=== PATIENT | male | born 1990 | race Caucasian/White ===

== ENCOUNTER 2021-05-09 07:13 | Inpatient (IN) ==
--- NOTE | 2021-05-09 07:34 | Emergency Department Note ---
History of Present Illness General Chief complaint: Foreign Body Stated complaint: SWALLOWED 2 BATTERIES AND A SPORK Time Seen by Provider: 05/09/21 07:22 History of Present Illness This 30-year-old male patient with significant past medical history of partial gastrectomy presents to the emergency department today for evaluation of ingested foreign body. The patient states at 1130 last night, he swallowed 2 A AA batteries and a spark. He states he does take daily laxatives and noted some discomfort in his mid abdomen last evening and overnight, but this is resolved. Last bowel movement was at 8 PM last night. He denies any chest pain or dyspnea. No current abdominal pain. No fever or recent illness. He denies any other associated symptoms. Home Medications Medication Instructions Recorded Confirmed Type mirtazapine 15 mg tablet 15 mg PO HS 05/09/21 05/09/21 History polyethylene glycol 3350 17 17 g PO DAILY 05/09/21 05/09/21 History gram/dose oral powder (Miralax) Allergies Allergy/AdvReac Type Severity Reaction Status Date / Time sertraline [From Zoloft] Allergy Unknown Per record Unverified 05/09/21 07:58 from SCI Past Med/Surg History Medical History Borderline personality disorder No pertinent family history Surgical History (Updated 05/09/21 @ 09:47 by Marie Dickson PA-C) History of partial gastrectomy Social History Smoking Status: Former smoker Feels Safe at Home: Yes Review of Systems A total of 10 systems reviewed and were otherwise negative Physical Exam Vital Signs Vital Signs - 24 hr 05/09/21 07:16 05/09/21 09:15 05/09/21 10:20 Temperature 36.9 C 36.6 C Temperature Source Temporal Artery Scan Oral Pulse Rate 115 H Pulse Rate [Apical] Pulse Rate [Finger] 98 H 66 Pulse Rhythm [Apical] Pulse Rhythm [Finger] Regular Regular Pulse Strength [Apical] Pulse Strength [Finger] Normal Respiratory Rate 20 18 18 Respiratory Effort / Characteristics Non-Labored Spontaneous Non-Labored Spontaneous Non-Labored Spontaneous Respiratory Depth Normal Normal Normal Respiratory Pattern Regular Regular Regular Blood Pressure 139/89 Blood Pressure [Right Arm] 130/78 115/77 Blood Pressure Mean 105 Blood Pressure Mean [Right Arm] 95 89 Blood Pressure Position Sitting Blood Pressure Position [Right Arm] Sitting Sitting Pulse Oximetry 94 97 100 Oxygen Delivery Method Room Air Room Air Room Air Oxygen Flow Rate Sepsis Recent Fever Within 48 Hours No Sepsis New/Unexplained Change in Mental Status N/A Sepsis Action Taken by Nursing No Action Required 05/09/21 12:11 05/09/21 12:20 05/09/21 12:30 Temperature 37.1 C Temperature Source Temporal Artery Scan Pulse Rate Pulse Rate [Apical] 71 68 60 Pulse Rate [Finger] Pulse Rhythm [Apical] Regular Regular Regular Pulse Rhythm [Finger] Pulse Strength [Apical] Normal Normal Normal Pulse Strength [Finger] Respiratory Rate 16 15 12 Respiratory Effort / Characteristics Non-Labored Spontaneous Non-Labored Spontaneous Non-Labored Spontaneous Respiratory Depth Normal Normal Normal Respiratory Pattern Regular Regular Regular Blood Pressure Blood Pressure [Right Arm] 100/50 L 94/55 L 109/69 Blood Pressure Mean Blood Pressure Mean [Right Arm] 66 68 82 Blood Pressure Position Blood Pressure Position [Right Arm] Lying Lying Lying Pulse Oximetry 99 99 100 Oxygen Delivery Method Oxymask Oxymask Room Air Oxygen Flow Rate 6 2 Sepsis Recent Fever Within 48 Hours Sepsis New/Unexplained Change in Mental Status Sepsis Action Taken by Nursing 05/09/21 12:40 Temperature Temperature Source Pulse Rate Pulse Rate [Apical] 55 L Pulse Rate [Finger] Pulse Rhythm [Apical] Regular Pulse Rhythm [Finger] Pulse Strength [Apical] Normal Pulse Strength [Finger] Respiratory Rate 15 Respiratory Effort / Characteristics Non-Labored Spontaneous Respiratory Depth Normal Respiratory Pattern Regular Blood Pressure Blood Pressure [Right Arm] 107/71 Blood Pressure Mean Blood Pressure Mean [Right Arm] 83 Blood Pressure Position Blood Pressure Position [Right Arm] Lying Pulse Oximetry 99 Oxygen Delivery Method Room Air Oxygen Flow Rate Sepsis Recent Fever Within 48 Hours Sepsis New/Unexplained Change in Mental Status Sepsis Action Taken by Nursing VITALS: Vitals are noted on the nurse's note and reviewed by myself. Vital signs stable. GENERAL: This is a 30-year-old white male, in no acute distress, nondiaphoretic, well-developed well-nourished. SKIN: The skin was without rashes, erythema, edema, or bruising. There is no tenting of the skin. Capillary refill less than 2 seconds. HEAD: Normocephalic atraumatic. EYES: Conjunctivae without injection, sclerae without icterus. NECK: Supple without nuchal rigidity. No lymphadenopathy. No JVD. HEART: Regular rate and rhythm without murmurs gallops or rubs. LUNGS: Clear to auscultation bilaterally without wheezes, rales or rhonchi. No retractions or accessory muscle use. ABDOMEN: Positive bowel sounds x 4. Soft, nontender, without masses or organomegaly. Vega sign negative. No guarding or rebound tenderness. MUSCULOSKELETAL: No muscle atrophy, erythema, or edema noted. Full range of motion without joint tenderness in all extremities. No tenderness to palpation. Normal gait. Strength 5/5 throughout. NEURO: Patient was alert and oriented to person place and time. No focal neurological deficits. Course Course The patient was seen and evaluated as above. An order was placed for continuous cardiac monitoring. The monitor shows a sinus tachycardia at a rate of 115 bpm. Imaging performed and reviewed by myself and radiologist as noted. I discussed the case with ANNA Gutierrez with GI. She will consult with her attending physician. IV access obtained, labs drawn. Labs reviewed by myself. Pt. was seen by GI. He will have EGD completed. Please see GI dictation regarding ongoing management and care of this patient. Medical Decision Making Differential Diagnosis Ingested foreign body, aspiration, infection, esophageal tear, obstruction, among others Medical Records Attestation: I reviewed the patient's medical records. Home Medications Current Medication List: was personally reviewed by me Laboratory Data Attestation: I reviewed the patient's lab results. Result diagrams: 05/09/21 09:05/09/21 09:21 Lab Results 05/09/21 05/09/21 05/09/21 Range/Units 09:11 09:11 09:21 WBC 3.46 L (4.8-10.8) K/uL RBC 4.47 L (4.7-6.1) M/uL Hgb 13.6 L (14.0-18.0) g/dL Hct 39.5 L (42-52) % MCV 88.4 (80-100) fL MCH 30.4 (25-34) pg MCHC 34.4 (32-36) g/dL RDW Std Deviation 42.4 (36.4-46.3) fL RDW Coeff of Antonio 13.1 (11.5-14.5) % Plt Count 201 (130-400) K/uL MPV 10.7 H (7.4-10.4) fL Immature Gran % (Auto) 0.0 % Neut % (Auto) 48.0 % Lymph % (Auto) 40.2 % [place] % (Auto) 7.5 % Eos % (Auto) 4.3 % Baso % (Auto) 0.0 % Neut # (Auto) 1.66 (1.4-6.5) K/uL Lymph # (Auto) 1.39 (1.2-3.4) K/uL [place] # (Auto) 0.26 (0.11-0.59) K/uL Eos # (Auto) 0.15 (0-0.5) K/uL Baso # (Auto) 0.00 (0-0.2) K/uL Immature Gran # (Auto) 0.00 (0.00-0.02) K/uL Sodium (136-145) mmol/L Potassium (3.5-5.1) mmol/L Chloride (98-107) mmol/L Carbon Dioxide (21-32) mmol/L Anion Gap (3-11) BUN (7-18) mg/dl Creatinine (0.6-1.4) mg/dl Est Cr Clr Drug Dosing ml/min Est GFR ( Amer) ml/min Est GFR (Non-Af Amer) ml/min BUN/Creatinine Ratio (10-20) Glucose (70-99) mg/dl Calcium (8.5-10.1) mg/dl Total Bilirubin (0.2-1) mg/dl AST (15-37) U/L ALT (12-78) U/L Alkaline Phosphatase (45-117) U/L Total Protein (6.4-8.2) gm/dl Albumin (3.4-5.0) gm/dl Globulin (2.5-4.0) gm/dl Albumin/Globulin Ratio (0.9-2) COVID-19 Eval Order Covid19 at [facility] SARS-CoV-2 (PCR) NEGATIVE (Negative) 05/09/21 Range/Units 09:21 WBC (4.8-10.8) K/uL RBC (4.7-6.1) M/uL Hgb (14.0-18.0) g/dL Hct (42-52) % MCV (80-100) fL MCH (25-34) pg MCHC (32-36) g/dL RDW Std Deviation (36.4-46.3) fL RDW Coeff of Antonio (11.5-14.5) % Plt Count (130-400) K/uL MPV (7.4-10.4) fL Immature Gran % (Auto) % Neut % (Auto) % Lymph % (Auto) % [place] % (Auto) % Eos % (Auto) % Baso % (Auto) % Neut # (Auto) (1.4-6.5) K/uL Lymph # (Auto) (1.2-3.4) K/uL [place] # (Auto) (0.11-0.59) K/uL Eos # (Auto) (0-0.5) K/uL Baso # (Auto) (0-0.2) K/uL Immature Gran # (Auto) (0.00-0.02) K/uL Sodium 138 (136-145) mmol/L Potassium 3.6 (3.5-5.1) mmol/L Chloride 106 (98-107) mmol/L Carbon Dioxide 29 (21-32) mmol/L Anion Gap 3.0 (3-11) BUN 6 L (7-18) mg/dl Creatinine 0.60 (0.6-1.4) mg/dl Est Cr Clr Drug Dosing 205.3 ml/min Est GFR ( Amer) > 150.0 ml/min Est GFR (Non-Af Amer) 135.9 ml/min BUN/Creatinine Ratio 9.4 L (10-20) Glucose 84 (70-99) mg/dl Calcium 8.8 (8.5-10.1) mg/dl Total Bilirubin 0.6 (0.2-1) mg/dl AST 27 (15-37) U/L ALT 27 (12-78) U/L Alkaline Phosphatase 126 H (45-117) U/L Total Protein 7.2 (6.4-8.2) gm/dl Albumin 4.3 (3.4-5.0) gm/dl Globulin 2.9 (2.5-4.0) gm/dl Albumin/Globulin Ratio 1.5 (0.9-2) COVID-19 Eval Order SARS-CoV-2 (PCR) (Negative) Imaging Data Radiologist's Impression: KUB X-Ray 05/09/21 07:29 KUB HISTORY: Foreign body ingestion "swallowed 2 AAA batteries and spork" - 11:30pm COMPARISON: KUB 09/04/2014 FINDINGS: Nonobstructive bowel gas pattern. Surgical clips project over the abdominal right lower quadrant and left upper quadrant.a there are 3 round radiopaque buttonlike devices projecting over the right lateral lower abdomen and right hemipelvis which may be external to the patient. There are 2 cylindrical batteries projected over the abdominal left upper quadrant measuring up to approximately 4 cm. Moderate fecal retention. There is a 4.2 cm ill- defined curvilinear radiodensity medial to the more proximal battery. No renal calculi. No ureteral calculi. No pneumoperitoneum or pneumatosis. No fracture. IMPRESSION: 1. Two batteries project over the stomach. There is an additional 4.2 cm ill- defined radiodensity medial to the batteries which may be artifactual or represent an additional ingested foreign body. ACT 112: Negative or not required by law. The above report was generated using voice recognition software. It may contain grammatical, syntax or spelling errors. Electronically signed by: Britton Will M.D. 05/09/2021 8:16 AM Blood Pressure Blood Pressure Findings: Normal blood pressure MDM Narrative This 30-year-old male patient presents to the emergency department today for evaluation of foreign body ingestion. The patient states he swallowed 2 AAA batteries and a sport last evening. He denies any pain at this time. KUB does confirm foreign body in the stomach. I did consult with GI and they will take the patient to the OR for EGD and foreign body removal. Please see GI dictation regarding ongoing management and care of this patient. The chart was completed utilizing [employer] voice recognition software. Grammatical errors, random word insertions, pronoun errors, and incomplete sentences are an occasional consequence of this system due to software limitations, ambient noise, and hardware issues. Any formal questions or concerns about the content, text, or information contained within the body of this dictation should be directly addressed to the provider for clarification. Impression & Plan Swallowed foreign body, History of partial gastrectomy Discharge Plan Visit Data Chief Complaint: Foreign Body Stated Complaint: SWALLOWED 2 BATTERIES AND A SPORK ED Provider: Harvey Minor ED Midlevel Provider: Marie Dickson Discharge Problem: Swallowed foreign body, History of partial gastrectomy Patient Disposition: Being Evaluated by Surgeon Discharge Instructions Interventions: ED Discharge Assessment Last Done: 05/09/21 10:16 Discharge Problem: Swallowed foreign body Qualifiers: Encounter type: initial encounter Qualified Code(s): T18.9XXA - Foreign body of alimentary tract, part unspecified, initial encounter
--- NOTE | 2021-05-09 08:17 | XRay Report ---
KUB HISTORY: Foreign body ingestion "swallowed 2 AAA batteries and spork" - 11:30pm COMPARISON: KUB 09/04/2014 FINDINGS: Nonobstructive bowel gas pattern. Surgical clips project over the abdominal right lower loc drant and left upper quadrant.a there are 3 round radiopaque buttonlike devices projecting over the r ight lateral lower abdomen and right hemipelvis which may be external to the patient. There are 2 cyl indrical batteries projected over the abdominal left upper quadrant measuring up to approximately 4 c m. Moderate fecal retention. There is a 4.2 cm ill-defined curvilinear radiodensity medial to the mor e proximal battery. No renal calculi. No ureteral calculi. No pneumoperitoneum or pneumatosis. No fra cture. IMPRESSION: 1. Two batteries project over the stomach. There is an additional 4.2 cm ill-defined radiodensity med ial to the batteries which may be artifactual or represent an additional ingested foreign body. ACT 112: Negative or not required by law. The above report was generated using voice recognition software. It may contain grammatical, syntax o r spelling errors. Electronically signed by: Britton Will M.D. 05/09/2021 8:16 AM
--- NOTE | 2021-05-09 09:06 | Anesthesiology Consultation ---
Date of Service May 09, 2021 Assessment & Plan (1) Encounter for pre-operative examination: Chart Review Chart Review: Acceptable Risk for Surgery (awaiting covid test result) History Surgery Operation Date: 05/09/21 15:35 Proposed Procedures p Esophagogastroduodenoscopy Foreign Body Removal - Elena Garcia MD Height/Weight Height: 6 ft 1 in Weight: 84.7 kg Allergies Allergy/AdvReac Type Severity Reaction Status Date / Time sertraline [From Zoloft] Allergy Unknown Per record Unverified 05/09/21 07:58 from SCI Medications Home Medications Medication Instructions Recorded Confirmed Last Taken mirtazapine 15 mg tablet 15 mg PO HS 05/09/21 05/09/21 05/08/21 polyethylene glycol 3350 17 17 g PO DAILY 05/09/21 05/09/21 05/08/21 gram/dose oral powder (Miralax) Past Medical History Medical History (Updated 05/09/21 @ 09:07 by Jonathan Reis MD) Borderline personality disorder No pertinent family history Past Surgical History Surgical History (Updated 05/09/21 @ 09:06 by Jonathan Reis MD) History of partial gastrectomy Social History Smoking Status: Former smoker Physical Exam Vital Signs Last Vital Signs Temp 36.9 C 05/09/21 07:16 Pulse 115 H 05/09/21 07:16 Resp 20 05/09/21 07:16 BP 139/89 05/09/21 07:16 Pulse Ox 94 05/09/21 07:16
--- NOTE | 2021-05-09 09:21 | Gastrointestinal Consultation ---
Date of Consultation May 09, 2021 Assessment & Plan (1) Swallowed foreign body: 30 year old who reports foreign body ingestion last evening around midnight (2 batteries and spork), imaging confirms this is in his stomach Keep NPO COVID swab now EGD in OR for foreign body Thank you for allowing us to participate in the care of this patient. Please call with any acute changes, questions or concerns. Please see addendum below with additional recommendation from my supervising physician. Supervising Physician Co-Signing Physician Notes I performed a history and physical examination of the patient today, including specifically on physical exam - soft abdomen. I have discussed the patient's management with the advanced practitioner. Please refer to the nurse practitioner's note for the documented findings and plan of care. Urgent EGD for foreign body removal History of Present Illness Reason for Consultation: foreign body Requesting Physician: Randolph Attending Physician: Radha History of Present Illness 30 year old male patient with significant past medical history of partial gastrectomy presents to the emergency department today for evaluation of ingested foreign body. He notes around last evening near midnight he swallowed two AAA batteries. After, he swallowed a plastic spork "to make sure it got stuck in there". He notes he is presently feeling well. No abd pain. No nausea, vomiting. Denies any lower GI concerns. No diarrhea/constipation. No black or bloody stools. KUB 2020: Two batteries project over the stomach. There is an additional 4.2 cm ill-defined radiodensity medial to the batteries which may be artifactual or represent an additional ingested foreign body. Allergies Allergy/AdvReac Type Severity Reaction Status Date / Time sertraline [From Zoloft] Allergy Unknown Per record Unverified 05/09/21 07:58 from SCI Home Medications Medication Instructions Recorded Confirmed Type mirtazapine 15 mg tablet 15 mg PO HS 05/09/21 05/09/21 History polyethylene glycol 3350 17 17 g PO DAILY 05/09/21 05/09/21 History gram/dose oral powder (Miralax) Patient History Medical History (Updated 05/09/21 @ 09:47 by Marie Dickson PA-C) Borderline personality disorder No pertinent family history Surgical History (Updated 05/09/21 @ 09:47 by Marie Dickson PA-C) History of partial gastrectomy Social History Smoking Status: Former smoker Feels Safe at Home: Yes Review of Systems Review of Systems: All systems reviewed & are unremarkable except as noted in HPI & below Physical Exam Constitutional: WD/WN, vitals as above Neck: trachea midline, no thyromegaly Respiratory: normal respiratory effort and able to speak in complete sentences; no respiratory distress, no labored breathing, no cough, no audible wheezes, no grunting and no nasal flaring Cardiovascular: Rate/Rhythm: regular rhythm and + tachycardic Gastrointestinal (Abdomen): Percussion/Palpation: abdomen soft; abdomen not rigid Skin: no rashes, warm and dry Results & Data ([facility]) Vital Signs (Past 12 Hours) Vital Signs Temp Pulse Resp BP Pulse Ox 05/09/21 07:16 36.9 C 115 H 20 139/89 94 Laboratory Results 05/09/21 05/09/21 Range/Units 09:11 09:11 COVID-19 Eval Order Covid19 at [facility] SARS-CoV-2 (PCR) Pending
[2021-05-09 09:41] LABS: Eosinophils # (auto) 0.15 K/uL (0-0.5); Eosinophils % (auto) 4.3 %; Hematocrit (blood only) 39.5 % (42-52); Hemoglobin 13.6 g/dL (14.0-18.0); Lymphocytes # (auto) 1.39 K/uL (1.2-3.4); Lymphocytes % (auto) 40.2 %; Mean Corpuscular Hemoglobin 30.4 pg (25-34); Mean Corpuscular Hgb Conc 34.4 g/dL (32-36); Mean Corpuscular Volume 88.4 fL (80-100); Mean Platelet Volume 10.7 fL (7.4-10.4); Monocytes # (auto) 0.26 K/uL (0.11-0.59); Monocytes % (auto) 7.5 %; Neutrophils # (auto) 1.66 K/uL (1.4-6.5); Platelet Count 201 K/uL (130-400); RDW Coefficient of Variation 13.1 % (11.5-14.5); RDW Standard Deviation 42.4 fL (36.4-46.3); Red Blood Count 4.47 M/uL (4.7-6.1); White Blood Count 3.46 K/uL (4.8-10.8)
[2021-05-09 10:06] LABS: Alanine Aminotransferase 27 U/L (12-78); Albumin Level 4.3 gm/dl (3.4-5.0); Aspartate Aminotransferase 27 U/L (15-37); BUN Creatinine Ratio 9.4 (10-20); Blood Urea Nitrogen 6 mg/dl (7-18); Calcium 8.8 mg/dl (8.5-10.1); Carbon Dioxide 29 mmol/L (21-32); Chloride 106 mmol/L (98-107); Creatinine Clr Calc Pharmacy 205.3 ml/min; Est GFR (African American) > 150.0 ml/min; Est GFR (Non-African American) 135.9 ml/min; Glucose 84 mg/dl (70-99); Potassium 3.6 mmol/L (3.5-5.1); Sodium 138 mmol/L (136-145)
[2021-05-09 10:08] LABS: Albumin Globulin Ratio 1.5 (0.9-2); Alkaline Phosphatase 126 U/L (45-117); Bilirubin,Total 0.6 mg/dl (0.2-1); Globulin 2.9 gm/dl (2.5-4.0); Total Protein 7.2 gm/dl (6.4-8.2)
[2021-05-09] MEDS ORDERED: ONDANSETRON INJ 2 MG/ML 2 ML VIAL ONE (10:52)
[2021-05-09] MEDS ORDERED: LIDOCAINE 2% 2 ML VIAL/AMP(20MG/ML) INFIL ONE (10:52)
[2021-05-09] MEDS ORDERED: GLYCOPYRROLATE 0.2 MG/ML VIAL ONE (10:52)
[2021-05-09] MEDS ORDERED: PROPOFOL IV EMULSION 10 MG/ML 20 ML VIAL IV ONE ×2 (10:52→11:49)
[2021-05-09] MEDS ORDERED: SUCCINYLCHOLINE CHLORIDE 20 MG/ML 10 ML VIAL IV ONE (10:52)
[2021-05-09] MEDS ORDERED: ATROPINE SULFATE 0.1 MG/ML 10ML SYR IV PRN (11:22)
[2021-05-09] MEDS ORDERED: KETOROLAC 30 MG/ML VIAL IV PRN (11:22)
[2021-05-09] MEDS ORDERED: ONDANSETRON INJ 2 MG/ML 2 ML VIAL IV PRN (11:22)
[2021-05-09] MEDS ORDERED: METOCLOPRAMIDE HCL INJ 5 MG/ML 2 ML VIAL ONE (12:01)
--- NOTE | 2021-05-09 12:04 | Operative Report ---
Post Operative Report Pre & Post Diagnosis Operation Date: 05/09/21 15:35 Pre-Op Diagnosis: Swallowed Two Batteries and a Spork Post-Op Diagnosis: Swallowed Two Batteries and a Spork I identified the patient and participated in the time-out.: Yes Procedure Operation Date: 05/09/21 15:35 Actual Procedures p Esophagogastroduodenoscopy Foreign Body Removal(Not Applicable) - Elena Garcia MD Surgeon Elena Garcia MD Log Haul Operator None Estimated Blood Loss 0 Findings See Below (Plastic fork and one AAA Battery removed) Specimens Above Description of Procedure EGD I attest to the content of the Intraoperative Record and any orders documented therein. Any exceptions are noted below.
--- NOTE | 2021-05-09 12:15 | Gastroenterology Progress Note ---
Date of Service May 09, 2021 Subjective EGD done today, one Battery and one plastic fork removed. The second battery was not seen despite doing a push enteroscopy to the jejunum. Likely migrated down to the ileum. Please admit the patient for serial KUB till battery is out with a BM. Results & Data ([facility]) Vital Signs (Past 12 Hours) Vital Signs Temp Pulse Pulse Resp BP BP Pulse Ox 05/09/21 10:20 36.6 C 66 18 115/77 100 05/09/21 09:15 98 H 18 130/78 97 05/09/21 07:16 36.9 C 115 H 20 139/89 94
[2021-05-09] MEDS ORDERED: GLUCAGON FOR INJ 1 MG VIAL ONE (12:23)
--- NOTE | 2021-05-09 12:26 | GI REPORT ---
Patient Name: Feliciano Duarte Procedure Date: 05/09/2021 11:43 AM Date of : 1990 Admit Type: Outpatient Age: 30 Gender: Male Attending MD: Elena Garcia MD Procedure: Small bowel enteroscopy Providers: Elena Garcia MD Referring MD: Harvey Minor Indications: Foreign body in the stomach Medicines: General Anesthesia Complications: No immediate complications. Estimated Blood Loss: Estimated blood loss: none. Procedure: Pre-Anesthesia Assessment: - Prior to the procedure, a History and Physical was performed, and patient medications, allergies and sensitivities were reviewed. The patient's tolerance of previous anesthesia was reviewed. - The risks and benefits of the procedure and the sedation options and risks were discussed with the patient. All questions were answered and informed consent was obtained. - Patient identification and proposed procedure were verified prior to the procedure by the physician and the nurse. The procedure was verified in the procedure room. - Pre-procedure physical examination revealed no contraindications to sedation. After obtaining informed consent, the endoscope was passed under direct vision. Throughout the procedure, the patient's blood pressure, pulse, and oxygen saturations were monitored continuously. The Endoscope was introduced through the mouth, and advanced to the proximal jejunum. After obtaining informed consent, the endoscope was passed under direct vision. Throughout the procedure, the patient's blood pressure, pulse, and oxygen saturations were monitored continuously.The upper GI endoscopy was accomplished without difficulty. The patient tolerated the procedure well. Findings: The esophagus was normal. A plastic fork was found in the gastric body. Removal of a toy was accomplished with a snare. A AAA battery body was found in the third portion of the duodenum. Removal of a battery was accomplished with a snare. There was no evidence of significant pathology in the proximal jejunum. Impression: - Normal esophagus. - A plastic fork was found in the stomach. Removal was successful. - A AAA Battery found in the duodenum. Removal was successful. - The examined portion of the jejunum was normal. - The second battery was not found. Recommendation: - Admit the patient to hospital [facility] for ongoing care. - Serial KUB till the battery comes out with a bowel movement. - Miralax BID. Elena Garcia MD 05/09/2021 12:25:36 PM This report has been signed electronically. Note Initiated On: 05/09/2021 11:43 AM Number of Addenda: 0 I attest to the content of the Intraoperative Record and orders documented therein, exceptions below {[id number]}
--- NOTE | 2021-05-09 12:59 | Anesthesiology Progress Note ---
Date of Service May 09, 2021 Anesthesia Post Procedure Vital Signs Vital Signs: Temp Pulse Pulse Pulse Resp BP BP 05/09/21 12:50 74 14 104/60 05/09/21 12:40 55 L 15 107/71 05/09/21 12:30 60 12 109/69 05/09/21 12:20 68 15 94/55 L 05/09/21 12:11 37.1 C 71 16 100/50 L 05/09/21 10:20 36.6 C 66 18 115/77 05/09/21 09:15 98 H 18 130/78 05/09/21 07:16 36.9 C 115 H 20 139/89 Pulse Ox 05/09/21 12:50 100 05/09/21 12:40 99 05/09/21 12:30 100 05/09/21 12:20 99 05/09/21 12:11 99 05/09/21 10:20 100 05/09/21 09:15 97 05/09/21 07:16 94 Transfer of Care Handoff Completed per policy Notes Mental Status: alert / awake / arousable Patient Amnestic to Procedure: Yes Nausea / Vomiting: adequately controlled Pain: adequately controlled Airway Patency, RR, SpO2: stable & adequate BP & HR: stable & adequate Hydration State: stable & adequate Anesthetic Complications: no major complications apparent
--- NOTE | 2021-05-09 13:10 | History & Physical Report ---
Date of Service May 09, 2021 Assessment & Plan (1) Swallowed foreign body: Plan: This is a 30yo M from [facility] with PMH of HTN, possible history of WPW, mood disorder, history of partial gastrectomy who presents after ingestion of foreign body. Admits to swallowing 2 batteries and a plastic spork last evening Underwent EGD with foreign body removal with removal of one battery and spork but second battery was not seen. 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 BP normotensive (4) Insomnia: Plan: Continue Mirtazapine DVT Ppx: SCDs Code status: FULL PCP: [facility] Dispo: Observation med tele Patient seen in collaboration with Dr. Worthington. Please see addendum. History of Present Illness Chief Complaint: swallowed foreign body Primary Care Provider: [facility] This is a 30yo M from [facility] with PMH of HTN, history of WPW, mood disorder, history of partial gastrectomy who presents after ingestion of foreign body. Patient admits to swallowing 2 batteries last evening around midnight. Also swallowed a plastic spork. Underwent EGD with foreign body removal with removal of one battery and spork but second battery was not seen. Likely migrated down to the ileum, per GI. Feeling well in PACU. Denies any nausea, vomiting, abdominal pain. No bowel movement yet today. No fever, chills, headache, lightheadedness, chest pain, SOB, dysuria, diarrhea or constipation. Patient is being admitted for further observation until he is able to pass remaining battery. Plan for repeat KUB today and serial KUBs until able to pass battery in bowel movement. Allergies Allergy/AdvReac Type Severity Reaction Status Date / Time sertraline [From Zoloft] Allergy Unknown Per record Unverified 05/09/21 07:58 from [facility] Home Medications Medication Instructions Recorded Confirmed Type mirtazapine 15 mg tablet 15 mg PO HS 05/09/21 05/09/21 History polyethylene glycol 3350 17 17 g PO DAILY 05/09/21 05/09/21 History gram/dose oral powder (Miralax) Past Med/Surg History Medical History (Updated 05/09/21 @ 14:09 by Macrina Rosado PA-C) Borderline personality disorder Hypertension Insomnia WPW (Hvztl-Zpepcfdvy-Ikhgv syndrome) Surgical History History of partial gastrectomy Family History (Updated 05/09/21 @ 13:49 by Macrina Rosado PA-C) Other Diabetes Heart disease Stroke Social History Smoking Status: Current every day smoker Tobacco Type: E-cigarettes / Vaping Do You Dip or Chew Tobacco: No; Tobacco Cessation Education Requested by Patient: No Hx Alcohol Use: Yes Alcohol type: beer Hx Substance Use: Yes Last Used Substance Other:: 2018 Preferred Language: Urdu Communication Ability: Effective Disbursement Clerk Required: No Beliefs That Will Affect Care: None Current Living Situation: Other Current Living Situation Comment: [facility] Feels Safe at Home: Yes Assistive Devices: None Review of Systems Review of Systems: At least ten systems reviewed and negative except as noted in the HPI. Physical Exam Physical Exam: General Appearance: WD/WN, vitals as above, NAD, sitting up in bed, pleasant, conversing easily Head: normocephalic, atraumatic Eyes: normal inspection, PERRL, conjunctivae normal, anicteric sclerae ENT: external ear and nose normal, oropharynx normal Neck: normal visual inspection, trachea midline, no thyromegaly Respiratory: normal respiratory effort, lungs clear to auscultation, no wheeze, rales, rhonchi. No accessory muscle use Cardiovascular: bradycardic rhythm, no murmur, normal peripheral pulses, no BLE edema. Vessels: no JVD Chest: normal inspection of chest Abdomen/GI: normal bowel sounds, soft, nontender, no hepatosplenomegaly Extremities/Musculoskeletal: no cyanosis or clubbing, extremities motor strength 5/5 Neurologic: PERRL, EOMI, accommodation nl, no face palsy, no dysarthria, CN's II-XI intact bilaterally and moves all extremities Psychiatric: A+Ox3, euthymic affect Skin: no rashes, normal color, warm/dry Results & Data Results & Data ([facility]) Vital Signs (Past 12 Hours) Vital Signs Temp Pulse Pulse Pulse Resp BP BP 05/09/21 12:50 74 14 104/60 05/09/21 12:40 55 L 15 107/71 05/09/21 12:30 60 12 109/69 05/09/21 12:20 68 15 94/55 L 05/09/21 12:11 37.1 C 71 16 100/50 L 05/09/21 10:20 36.6 C 66 18 115/77 05/09/21 09:15 98 H 18 130/78 05/09/21 07:16 36.9 C 115 H 20 139/89 Pulse Ox 05/09/21 12:50 100 05/09/21 12:40 99 05/09/21 12:30 100 05/09/21 12:20 99 05/09/21 12:11 99 05/09/21 10:20 100 05/09/21 09:15 97 05/09/21 07:16 94 Laboratory Results Short CBC 05/09/21 Range/Units 09: WBC 3.46 L (4.8-10.8) K/uL Hgb 13.6 L (14.0-18.0) g/dL Hct 39.5 L (42-52) % Plt Count 201 (130-400) K/uL BMP 05/09/21 09:21 Sodium 138 Potassium 3.6 Chloride 106 Carbon Dioxide 29 BUN 6 L Creatinine 0.60 Glucose 84 Calcium 8.8 Liver Function 05/09/21 Range/Units 09:21 Total Bilirubin 0.6 (0.2-1) mg/dl AST 27 (15-37) U/L ALT 27 (12-78) U/L Alkaline Phosphatase 126 H (45-117) U/L Albumin 4.3 (3.4-5.0) gm/dl Diagnostic Findings KUB X-Ray 05/09/21 07:29 KUB HISTORY: Foreign body ingestion "swallowed 2 AAA batteries and spork" - 11:30pm COMPARISON: KUB 09/04/2014 FINDINGS: Nonobstructive bowel gas pattern. Surgical clips project over the abdominal right lower quadrant and left upper quadrant.a there are 3 round radiopaque buttonlike devices projecting over the right lateral lower abdomen and right hemipelvis which may be external to the patient. There are 2 cylindrical batteries projected over the abdominal left upper quadrant measuring up to approximately 4 cm. Moderate fecal retention. There is a 4.2 cm ill- defined curvilinear radiodensity medial to the more proximal battery. No renal calculi. No ureteral calculi. No pneumoperitoneum or pneumatosis. No fracture. IMPRESSION: 1. Two batteries project over the stomach. There is an additional 4.2 cm ill- defined radiodensity medial to the batteries which may be artifactual or represent an additional ingested foreign body. ACT 112: Negative or not required by law. The above report was generated using voice recognition software. It may contain grammatical, syntax or spelling errors. Electronically signed by: Britton Will M.D. 05/09/2021 8:16 AM Code Status & VTE Plan VTE Prophylaxis Plan VTE Prophylaxis will be ordered: Yes Supervising Physician Co-Signing Physician Notes Patient was seen and examined today. Doing okay. Tolerating clear liquid diet. Appreciate GI input. S/p EGD. Plan to repeat x-ray tomorrow. one Battery and one plastic fork removed. Second battery not retrieved. Will await till it is retrieved through bowel movement. I performed a history and physical examination of the patient on 05/09/21, including specifically H&P. I have discussed the patient's management with the advanced practitioner. Please refer to the Macrina Rosado note for the documented findings and plan of care.
[2021-05-09] MEDS ORDERED: SODIUM CHLORIDE 0.9% 1000ML 500 ML IV ONE (13:14)
--- NOTE | 2021-05-09 14:35 | XRay Report ---
KUB HISTORY: Follow up study status post EVD post egd COMPARISON: KUB of same day at 7:31 AM FINDINGS: Nonobstructive bowel gas pattern. Surgical clips of the abdominal left upper quadrant. Inte rval removal of one of the batteries. 1 battery persists within the mid abdomen. No additional ingest ed opaque foreign bodies identified. Mild fecal retention. No renal calculi. No ureteral calculi. No pneumoperitoneum or pneumatosis. No fracture. IMPRESSION: 1. Interval removal of one of the ingested batteries. 1 battery persists within the central abdomen. 2. No pneumoperitoneum. ACT 112: Negative or not required by law. The above report was generated using voice recognition software. It may contain grammatical, syntax o r spelling errors. Electronically signed by: Britton Will M.D. 05/09/2021 2:33 PM
[2021-05-09] MEDS: SODIUM CHLORIDE 0.9% 1000ML 1,000 ML IV SCH ×2 (14:57→22:06)
[2021-05-09] MEDS: POLYETHYLENE (MIRALAX) 17 GM PACK PO SCH (20:44)
[2021-05-10] MEDS ORDERED: ACETAMINOPHEN 325 MG TAB PO PRN (01:12)
[2021-05-10] MEDS: POLYETHYLENE (MIRALAX) 17 GM PACK PO SCH ×2 (07:42→21:30)
[2021-05-10 07:44] LABS: Hemoglobin 12.6 g/dL (14.0-18.0); Mean Corpuscular Hemoglobin 30.1 pg (25-34); Mean Corpuscular Hgb Conc 34.1 g/dL (32-36); Mean Corpuscular Volume 88.3 fL (80-100); Mean Platelet Volume 10.8 fL (7.4-10.4); Platelet Count 192 K/uL (130-400); RDW Coefficient of Variation 13.3 % (11.5-14.5); RDW Standard Deviation 42.7 fL (36.4-46.3); Red Blood Count 4.19 M/uL (4.7-6.1); White Blood Count 3.77 K/uL (4.8-10.8)
[2021-05-10 08:04] LABS: BUN Creatinine Ratio 5.2 (10-20); Calcium 8.6 mg/dl (8.5-10.1); Creatinine Clr Calc Pharmacy 178.5 ml/min; Est GFR (African American) 148.7 ml/min; Est GFR (Non-African American) 128.3 ml/min; Potassium 3.7 mmol/L (3.5-5.1)
--- NOTE | 2021-05-10 08:51 | Gastroenterology Progress Note ---
Date of Service May 10, 2021 Assessment & Plan (1) Swallowed foreign body: Plan: 30 year old inmate admitted for observation post EGD. He swallowed two batteries and one had already passed into the small intestine at time of EGD. He was not evaluated this AM as he was not in his room on numerous attempts. KUB this AM Continue BID miralax Admission and Anticipated Discharge Date Admission Date: May 09, 2021 Supervising Physician Co-Signing Physician Notes I performed a history and physical examination of the patient today, including specifically on physical exam - soft abdomen. I have discussed the patient's management with the advanced practitioner. Please refer to the nurse practitioner's note for the documented findings and plan of care. Battery seems to be in the ascending colon. Continue Miralax. Repeat KUB tonight or tomorrow. Recall GI if needed. Subjective Pt was not seen as he as out of his room x 3 attempts KUB this AM not obtained yet. Results & Data ([facility]) Vital Signs (Past 12 Hours) Vital Signs Temp Pulse Resp BP Pulse Ox 05/10/21 04:03 36.8 C 57 L 16 115/78 99 05/09/21 23:15 36.4 C L 70 16 138/87 99
--- NOTE | 2021-05-10 10:13 | XRay Report ---
XR finger(s) RT min 2V INDICATION: MN ^Y ^fall 2 weeks ago, finger pain. TECHNIQUE: 2 views of the right fourth digit were obtained. Comparison: None available at the time of this dictation. FINDINGS: There is no evidence of an acute fracture. The alignment is anatomic. Joint spaces are well-maintaine d. No soft tissue abnormality is identified. Incidentally noted is deformity of the fifth metacarpal head which is likely chronic. IMPRESSION: No evidence of acute bony injury. ACT 112: Negative or not required by law. Electronically signed by: Sukhjinder Blair M.D. 05/10/2021 10:12 AM
--- NOTE | 2021-05-10 10:15 | XRay Report ---
KUB HISTORY: Evaluate for foreign body. s/p EGD 1 battery past stomach COMPARISON: KUB 05/09/2021. FINDINGS: The bowel gas pattern is unremarkable. No evidence for a bowel obstruction. No renal calcu li. No ureteral calculi. No pneumoperitoneum or pneumatosis. There is a battery located within the ri ght midabdomen. This could be within the jejunum or proximal colon. There are suture material and morgan gical clips within the left upper quadrant. Borderline distended gas-filled loops of large and small bowel. This could be postprocedural or represent a mild ileus. IMPRESSION: There is again noted a battery located within the right midabdomen. This could be within the small susan wel or proximal colon. No pneumoperitoneum. ACT 112: Negative or not required by law. Electronically signed by: Faheem Christy M.D. 05/10/2021 10:14 AM
--- NOTE | 2021-05-10 10:52 | Hospitalist Progress Note ---
Date of Service May 10, 2021 Assessment & Plan (1) Swallowed foreign body: Plan: This is a 30yo M from [facility] with PMH of HTN, possible history of WPW, mood disorder, history of partial gastrectomy who presents after ingestion of foreign body. S/P EGD 05/09/21: retrieved 1 AAA battery and spork. Pt swallowed 2 batteries, 1 is passing through GI tract KUB this a.m. 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 BP normotensive monitor (4) Insomnia: Plan: Continue Mirtazapine DVT Ppx: SCDs Code status: FULL PCP: RO [facility] Dispo: Observation medical Patient seen in collaboration with Dr. Silva. Please see addendum. Please contact via [place] text with questions or concerns to Rach Cabrera). Admission and Anticipated Discharge Date Admission Date: May 09, 2021 Supervising Physician Co-Signing Physician Notes Patient is seen and examined at bedside. Denies having any significant abdominal pain. Also denies nausea, vomiting. No bowel movement today. Denies any suicidal/homicidal ideation. Refuses psychiatry evaluation On exam patient is normocephalic atraumatic, moderately built and nourished, no apparent distress, EOMI, normal breath sounds, clear to auscultation, S1-S2, no murmur, no pedal edema, abdomen soft, nontender, normal bowel sounds, alert, awake, oriented, grossly no focal deficits. Foreign body ingestion S/P EGD and removal of spork, 1/2 Battery Continue bowel regimen KUB tomorrow Appreciate GI input Clear liquid diet for now Refuses psychiatry evaluation I personally reviewed the record. Patient is interviewed and examined at bedside. Patient's care is coordinated with Rach Boucher PA-C. Please refer to the documentation above for details of patient's presentation and for discussion of other issues. Subjective Patient was seen and examined in room 353-2. Follow up swallowing of batteries. He is sitting up in bed w/o acute complaint. Denies suicidal or homicidal ideations. He said when he swallows foreign objects it is a source of emotional enjoyment and comfort for him. When he does this he has intent to harm himself but not kill himself. He does c/o or R 4th finger pain. States landed on it when playing football at shelter 2 weeks ago. Requesting XR. Denies f/c/s, chest pain, sob, n/v/d, abdominal pain. No BM since admission. Review of Systems Review of Systems: All systems reviewed & are unremarkable except as noted in HPI & below Physical Exam Physical Exam: Gen: WD/WN, M, NAD, A&O x3 HEENT: Normocephalic, atraumatic, conjunctivae moist, sclerae anicteric, mucous membranes moist. Lung: Clear to Auscultation bilaterally, no wheezes/rales/rhonchi Heart: Regular rate, regular rhythm, no murmurs, rubs, or gallops Abdomen: Soft, NT, ND +BS x 4 Extremities: No edema, AROM x 4, no swelling or erythema to R 4th digit, pain with ROM. Skin: Warm, no rash, negative turgor. Results & Data Results & Data ([facility]) Vital Signs (Past 12 Hours) Vital Signs Temp Pulse Resp BP Pulse Ox 05/10/21 09:32 36.7 C 65 20 126/81 100 05/10/21 04:03 36.8 C 57 L 16 115/78 99 05/09/21 23:15 36.4 C L 70 16 138/87 99 Laboratory Results Short CBC 05/10/21 Range/Units 07:00 WBC 3.77 L (4.8-10.8) K/uL Hgb 12.6 L (14.0-18.0) g/dL Hct 37.0 L (42-52) % Plt Count 192 (130-400) K/uL BMP 05/10/21 07:00 Sodium 139 Potassium 3.7 Chloride 109 H Carbon Dioxide 27 BUN 4 L Creatinine 0.69 Glucose 103 H Calcium 8.6 Diagnostic Findings KUB X-Ray 05/10/21 06:30 KUB HISTORY: Evaluate for foreign body. s/p EGD 1 battery past stomach COMPARISON: KUB 05/09/2021. FINDINGS: The bowel gas pattern is unremarkable. No evidence for a bowel obstruction. No renal calculi. No ureteral calculi. No pneumoperitoneum or pneumatosis. There is a battery located within the right midabdomen. This could be within the jejunum or proximal colon. There are suture material and surgical clips within the left upper quadrant. Borderline distended gas-filled loops of large and small bowel. This could be postprocedural or represent a mild ileus. IMPRESSION: There is again noted a battery located within the right midabdomen. This could be within the small bowel or proximal colon. No pneumoperitoneum. ACT 112: Negative or not required by law. Electronically signed by: Faheem Christy M.D. 05/10/2021 10:14 AM Finger X-Ray 05/10/21 08:53 XR finger(s) RT min 2V INDICATION: MN ^Y ^fall 2 weeks ago, finger pain. TECHNIQUE: 2 views of the right fourth digit were obtained. Comparison: None available at the time of this dictation. FINDINGS: There is no evidence of an acute fracture. The alignment is anatomic. Joint spaces are well-maintained. No soft tissue abnormality is identified. Incidentally noted is deformity of the fifth metacarpal head which is likely chronic. IMPRESSION: No evidence of acute bony injury. ACT 112: Negative or not required by law. Electronically signed by: Sukhjinder Blair M.D. 05/10/2021 10:12 AM
[2021-05-11 06:24] LABS: Hematocrit (blood only) 39.3 % (42-52); Hemoglobin 13.2 g/dL (14.0-18.0); Mean Corpuscular Hemoglobin 29.9 pg (25-34); Mean Corpuscular Hgb Conc 33.6 g/dL (32-36); Mean Corpuscular Volume 89.1 fL (80-100); Mean Platelet Volume 10.7 fL (7.4-10.4); Platelet Count 231 K/uL (130-400); RDW Coefficient of Variation 13.1 % (11.5-14.5); RDW Standard Deviation 42.4 fL (36.4-46.3); Red Blood Count 4.41 M/uL (4.7-6.1)
[2021-05-11 06:56] LABS: BUN Creatinine Ratio 4.4 (10-20); Creatinine Clr Calc Pharmacy 171.1 ml/min; Est GFR (African American) 146.1 ml/min; Est GFR (Non-African American) 126.1 ml/min; Potassium 3.7 mmol/L (3.5-5.1)
--- NOTE | 2021-05-11 07:10 | XRay Report ---
XR KUB/Abdomen 1 view INDICATION: MN ^assess passage of battery ^TO BE DONE AT 2100. TECHNIQUE: 1 view of the abdomen was obtained. Comparison: Comparison is made to abdomen one view 05/10/2021 at only 12 hours FINDINGS: The lung bases are clear. The osseous structures are grossly unremarkable. The bowel gas pattern is n onobstructive. Previously noted chaz shaped radiodensity now projects of the sigmoid colon. IMPRESSION: Battery is now seen in the region of the sigmoid colon. ACT 112: Negative or not required by law. Electronically signed by: Sukhjinder Blair M.D. 05/11/2021 7:08 AM
[2021-05-11] MEDS: POLYETHYLENE (MIRALAX) 17 GM PACK PO SCH ×2 (09:01→21:14)
--- NOTE | 2021-05-11 09:19 | Hospitalist Progress Note ---
Date of Service May 11, 2021 Assessment & Plan (1) Swallowed foreign body: Plan: This is a 30yo M from [facility] with PMH of HTN, possible history of WPW, mood disorder, history of partial gastrectomy who presents after ingestion of foreign body. S/P EGD 05/09/21: retrieved 1 AAA battery and spork. 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 Lundberg. Please see addendum. Please contact via [place] text with questions or concerns to Rach Cabrera). (4) Finger pain: Plan: R 4th finger pain s/ p fall 2 weeks ago xray negative supportive care Plan: I have seen and examined the patient and have discussed the case with the provider above. I agree with the assessment and plan as stated. Patient is a 30-year-old man who denies any abdominal pain or discomfort. He is tolerating the MiraLAX and eager to have a bowel movement to get the battery out of him. Physical exam is unremarkable. Agree with plan above. DO Toño Admission and Anticipated Discharge Date Admission Date: May 09, 2021 Subjective Patient was seen and examined in room 353-2. Follow up swallowing of batteries. No acute concern. He wants to be d/c back to halfway so he can eat. Had 1 small BM yesterday. KUB last evening shows progression of battery towards sigmoid/rectum. Denies f/c/s, abd pain, n/v/d. Tolerating clear liquid diet but requesting more to eat. Review of Systems Review of Systems: All systems reviewed & are unremarkable except as noted in HPI & below Physical Exam Physical Exam: Gen: WD/WN, M NAD, A&O x3 HEENT: Normocephalic, atraumatic, conjunctivae moist, sclerae anicteric, mucous membranes moist. Lung: Clear to Auscultation bilaterally, no wheezes/rales/rhonchi Heart: Regular rate, regular rhythm, no murmurs, rubs, or gallops Abdomen: Soft, NT, ND +BS x 4 Extremities: No edema Skin: Warm, no rash, negative turgor. Results & Data Results & Data ([facility]) Vital Signs (Past 12 Hours) Vital Signs Temp Pulse Pulse Resp BP Pulse Ox 05/11/21 07:40 36.5 C 71 16 124/76 95 05/10/21 23:50 36.7 C 61 18 130/76 97 Laboratory Results Short CBC 05/11/21 Range/Units 05:46 WBC 4.30 L (4.8-10.8) K/uL Hgb 13.2 L (14.0-18.0) g/dL Hct 39.3 L (42-52) % Plt Count 231 (130-400) K/uL BMP 05/11/21 05:46 Sodium 136 Potassium 3.7 Chloride 105 Carbon Dioxide 27 BUN 3 L Creatinine 0.72 Glucose 88 Calcium 9.0 Diagnostic Findings KUB X-Ray 05/10/21 06:30 KUB HISTORY: Evaluate for foreign body. s/p EGD 1 battery past stomach COMPARISON: KUB 05/09/2021. FINDINGS: The bowel gas pattern is unremarkable. No evidence for a bowel obstruction. No renal calculi. No ureteral calculi. No pneumoperitoneum or pneumatosis. There is a battery located within the right midabdomen. This could be within the jejunum or proximal colon. There are suture material and surgical clips within the left upper quadrant. Borderline distended gas-filled loops of large and small bowel. This could be postprocedural or represent a mild ileus. IMPRESSION: There is again noted a battery located within the right midabdomen. This could be within the small bowel or proximal colon. No pneumoperitoneum. ACT 112: Negative or not required by law. Electronically signed by: Faheem Christy M.D. 05/10/2021 10:14 AM Finger X-Ray 05/10/21 08:53 XR finger(s) RT min 2V INDICATION: MN ^Y ^fall 2 weeks ago, finger pain. TECHNIQUE: 2 views of the right fourth digit were obtained. Comparison: None available at the time of this dictation. FINDINGS: There is no evidence of an acute fracture. The alignment is anatomic. Joint spaces are well-maintained. No soft tissue abnormality is identified. Incidentally noted is deformity of the fifth metacarpal head which is likely chronic. IMPRESSION: No evidence of acute bony injury. ACT 112: Negative or not required by law. Electronically signed by: Sukhjinder Blair M.D. 05/10/2021 10:12 AM KUB X-Ray 05/10/21 21:00 XR KUB/Abdomen 1 view INDICATION: MN ^assess passage of battery ^TO BE DONE AT 2100. TECHNIQUE: 1 view of the abdomen was obtained. Comparison: Comparison is made to abdomen one view 05/10/2021 at only 12 hours FINDINGS: The lung bases are clear. The osseous structures are grossly unremarkable. The bowel gas pattern is nonobstructive. Previously noted chaz shaped radiodensity now projects of the sigmoid colon. IMPRESSION: Battery is now seen in the region of the sigmoid colon. ACT 112: Negative or not required by law. Electronically signed by: Sukhjinder Blair M.D. 05/11/2021 7:08 AM Medications Administered Medication List Acetaminophen (Acetaminophen 325 Mg Tab) 650 mg PO Q6H PRN PRN Reason: Fever/pain Stop: 06/09/21 01:11 Last Admin: 05/10/21 01:21 Dose: 650 mg Documented by: [id number] Polyethylene Glycol (Polyethylene (Miralax) 17 Gm Pack) 17 gm PO BID AURA Stop: 06/08/21 20:59 Last Admin: 05/11/21 09:01 Dose: 17 gm Documented by: [id number] Admin: 05/10/21 21:30 Dose: 17 gm Documented by: [id number] Admin: 05/10/21 07:42 Dose: 17 gm Documented by: [id number] Admin: 05/09/21 20:44 Dose: 17 gm Documented by: [id number] Discontinued Medications Glucagon (Glucagon For Inj 1 Mg Vial) Confirm Administered Dose 1 mg .ROUTE .STK-MED ONE Stop: 05/09/21 12:24 Last Admin: 05/09/21 14:55 Dose: Not Given Documented by: [id number] Sodium Chloride (Nss 1000ml) 500 mls @ 999 mls/hr IV .Q31M ONE Stop: 05/09/21 13:44 Last Infusion: 05/09/21 14:56 Dose: 0 mls/hr Documented by: [id number] Admin: 05/09/21 13:33 Dose: 999 mls/hr Documented by: [id number] Sodium Chloride (Nss 1000ml) 1,000 mls @ 125 mls/hr IV .Q8H AURA Stop: 05/10/21 05:59 Last Infusion: 05/10/21 06:21 Dose: 0 mls/hr Documented by: [id number] Admin: 05/09/21 22:06 Dose: 125 mls/hr Documented by: [id number] Infusion: 05/09/21 22:06 Dose: 125 mls/hr Documented by: [id number] Admin: 05/09/21 14:57 Dose: 125 mls/hr Documented by: [id number]
--- NOTE | 2021-05-11 10:03 | XRay Report ---
XR KUB/Abdomen 1 view INDICATION: MN ^Check Battery location. TECHNIQUE: 1 view of the abdomen was obtained. Comparison: Comparison is made to abdomen one view 05/10/2021 FINDINGS: The lung bases are clear. The osseous structures are grossly unremarkable. The bowel gas pattern is n onobstructive. The radiodense foreign body remains in the sigmoid colon. IMPRESSION: Ingested battery remains in the sigmoid colon. ACT 112: Negative or not required by law. Electronically signed by: Sukhjinder Blair M.D. 05/11/2021 10:02 AM
--- NOTE | 2021-05-11 12:07 | Gastroenterology Progress Note ---
Date of Service May 11, 2021 Assessment & Plan Admission and Anticipated Discharge Date Admission Date: May 09, 2021 Subjective KUB reviewed, battery is now in the rectosigmoid area hence should come out soon. Advance diet. Recall GI if needed. Results & Data ([facility]) Vital Signs (Past 12 Hours) Vital Signs Temp Pulse Resp BP Pulse Ox 05/11/21 07:40 36.5 C 71 16 124/76 95
[2021-05-11] MEDS: MIRTAZAPINE TAB 15 MG TAB PO SCH (21:15)
--- NOTE | 2021-05-12 08:04 | Hospitalist Progress Note ---
Date of Service May 12, 2021 Assessment & Plan (1) Swallowed foreign body: Plan: This is a 30yo M from [facility] with PMH of HTN, possible history of WPW, mood disorder, history of partial gastrectomy who presents after ingestion of foreign body. S/P EGD 05/09/21: retrieved 1 AAA battery and spork. Pt swallowed 2 batteries, 1 is passing through GI tract KUB from today shows nonobstructive bowel gas pattern, stable position of foreign body within pelvic region Increase frequency of Miralax Daily KUB until pt passes battery Tolerating diet Patient refuses psych eval (2) WPW (Yvigw-Gskafufte-Sdhvo syndrome): Plan: Patient endorsing history, no previous notes or med records to clarify Has not followed with upper cutter out in years HR in 50s on admission (3) Finger pain: Plan: R 4th finger pain s/ p fall 2 weeks ago xray negative supportive care (4) Insomnia: Plan: Continue Mirtazapine DVT Ppx: SCDs Code status: FULL PCP: RO [facility] Dispo: Observation medical Patient seen in collaboration with Dr. Lundberg. Please see addendum. Plan: I have seen and examined the patient and have discussed the case with the provider above. I agree with the assessment and plan as stated. Normal exam, no symptoms or concerns. Increasing Miralax to get him moving more. Hopeful for dc in am. DO Toño Admission and Anticipated Discharge Date Admission Date: May 11, 2021 Subjective Patient seen and examined in 353-2. Feeling well. Tolerating regular diet without issue. Denies fever, chills, nausea, vomiting or abdominal pain. No dysuria or diarrhea. Had a bowel movement this morning but battery has not been passed. KUB from yesterday shows battery is now in the rectosigmoid area. Repeat KUB today is pending. Denies any suicidal/homicidal ideation. Refuses psychiatry evaluation. Review of Systems Review of Systems: At least ten systems reviewed and negative except as noted in the HPI. Physical Exam Physical Exam: General Appearance: WD/WN, vitals as above, NAD, sitting up in bed, pleasant, conversing easily Head: normocephalic, atraumatic Eyes: normal inspection, PERRL, conjunctivae normal, anicteric sclerae ENT: external ear and nose normal, oropharynx normal Neck: normal visual inspection, trachea midline, no thyromegaly Respiratory: normal respiratory effort, lungs clear to auscultation, no wheeze, rales, rhonchi. No accessory muscle use Cardiovascular: bradycardic rhythm, no murmur, normal peripheral pulses, no BLE edema. Vessels: no JVD Chest: normal inspection of chest Abdomen/GI: normal bowel sounds, soft, nontender, no hepatosplenomegaly Extremities/Musculoskeletal: no cyanosis or clubbing, extremities motor strength 5/5 Neurologic: PERRL, EOMI, accommodation nl, no face palsy, no dysarthria, CN's II-XI intact bilaterally and moves all extremities Psychiatric: A+Ox3, euthymic affect Skin: no rashes, normal color, warm/dry Results & Data Results & Data ([facility]) Vital Signs (Past 12 Hours) Vital Signs Temp Pulse Resp BP Pulse Ox 05/11/21 23:45 36.5 C 60 18 118/68 97 Diagnostic Findings KUB X-Ray 05/09/21 07:29 KUB HISTORY: Foreign body ingestion "swallowed 2 AAA batteries and spork" - 11:30pm COMPARISON: KUB 09/04/2014 FINDINGS: Nonobstructive bowel gas pattern. Surgical clips project over the abdominal right lower quadrant and left upper quadrant.a there are 3 round radiopaque buttonlike devices projecting over the right lateral lower abdomen and right hemipelvis which may be external to the patient. There are 2 cylindrical batteries projected over the abdominal left upper quadrant measuring up to approximately 4 cm. Moderate fecal retention. There is a 4.2 cm ill- defined curvilinear radiodensity medial to the more proximal battery. No renal calculi. No ureteral calculi. No pneumoperitoneum or pneumatosis. No fracture. IMPRESSION: 1. Two batteries project over the stomach. There is an additional 4.2 cm ill- defined radiodensity medial to the batteries which may be artifactual or represent an additional ingested foreign body. ACT 112: Negative or not required by law. The above report was generated using voice recognition software. It may contain grammatical, syntax or spelling errors. Electronically signed by: Britton Will M.D. 05/09/2021 8:16 AM KUB X-Ray 05/09/21 13:53 KUB HISTORY: Follow up study status post EVD post egd COMPARISON: KUB of same day at 7:31 AM FINDINGS: Nonobstructive bowel gas pattern. Surgical clips of the abdominal left upper quadrant. Interval removal of one of the batteries. 1 battery persists within the mid abdomen. No additional ingested opaque foreign bodies identified. Mild fecal retention. No renal calculi. No ureteral calculi. No pneumoperi toneum or pneumatosis. No fracture. IMPRESSION: 1. Interval removal of one of the ingested batteries. 1 battery persists within the central abdomen. 2. No pneumoperitoneum. ACT 112: Negative or not required by law. The above report was generated using voice recognition software. It may contain grammatical, syntax or spelling errors. Electronically signed by: Britton Will M.D. 05/09/2021 2:33 PM KUB X-Ray 05/10/21 06:30 KUB HISTORY: Evaluate for foreign body. s/p EGD 1 battery past stomach COMPARISON: KUB 05/09/2021. FINDINGS: The bowel gas pattern is unremarkable. No evidence for a bowel obstruction. No renal calculi. No ureteral calculi. No pneumoperitoneum or pneumatosis. There is a battery located within the right midabdomen. This could be within the jejunum or proximal colon. There are suture material and surgical clips within the left upper quadrant. Borderline distended gas-filled loops of large and small bowel. This could be postprocedural or represent a mild ileus. IMPRESSION: There is again noted a battery located within the right midabdomen. This could be within the small bowel or proximal colon. No pneumoperitoneum. ACT 112: Negative or not required by law. Electronically signed by: Faheem Christy M.D. 05/10/2021 10:14 AM Finger X-Ray 05/10/21 08:53 XR finger(s) RT min 2V INDICATION: MN ^Y ^fall 2 weeks ago, finger pain. TECHNIQUE: 2 views of the right fourth digit were obtained. Comparison: None available at the time of this dictation. FINDINGS: There is no evidence of an acute fracture. The alignment is anatomic. Joint spaces are well-maintained. No soft tissue abnormality is identified. Incidentally noted is deformity of the fifth metacarpal head which is likely chronic. IMPRESSION: No evidence of acute bony injury. ACT 112: Negative or not required by law. Electronically signed by: Sukhjinder Blair M.D. 05/10/2021 10:12 AM KUB X-Ray 05/10/21 21:00 XR KUB/Abdomen 1 view INDICATION: MN ^assess passage of battery ^TO BE DONE AT 2100. TECHNIQUE: 1 view of the abdomen was obtained. Comparison: Comparison is made to abdomen one view 05/10/2021 at only 12 hours FINDINGS: The lung bases are clear. The osseous structures are grossly unremarkable. The bowel gas pattern is nonobstructive. Previously noted chaz shaped radiodensity now projects of the sigmoid colon. IMPRESSION: Battery is now seen in the region of the sigmoid colon. ACT 112: Negative or not required by law. Electronically signed by: Sukhjinder Blair M.D. 05/11/2021 7:08 AM KUB X-Ray 05/11/21 08:36 XR KUB/Abdomen 1 view INDICATION: MN ^Check Battery location. TECHNIQUE: 1 view of the abdomen was obtained. Comparison: Comparison is made to abdomen one view 05/10/2021 FINDINGS: The lung bases are clear. The osseous structures are grossly unremarkable. The bowel gas pattern is nonobstructive. The radiodense foreign body remains in the sigmoid colon. IMPRESSION: Ingested battery remains in the sigmoid colon. ACT 112: Negative or not required by law. Electronically signed by: Sukhjinder Blair M.D. 05/11/2021 10:02 AM
[2021-05-12] MEDS: POLYETHYLENE (MIRALAX) 17 GM PACK PO SCH ×3 (08:46→20:34)
--- NOTE | 2021-05-12 11:06 | XRay Report ---
XR KUB/Abdomen 1 view CLINICAL HISTORY: swallowed batteries COMPARISON STUDY: May 11, 2021 FINDINGS: Multiple nondilated stool and gas filled loops of bowel are again seen. Stable position of elongated radiodense foreign body within pelvis, within anatomical region of sigmo id colon which is unchanged since prior. Small metallic density is projecting to the mid abdomen, might represent foreign and previously was s een within left hemiabdomen. IMPRESSION: 1. Nonobstructive bowel gas pattern. 2. Stable position of foreign body within pelvic region. 3. The rest of findings as above. ACT 112: Negative or not required by law. The above report was generated using voice recognition software. It may contain grammatical, syntax o r spelling errors. Electronically signed by: Christine Liang DO 05/12/2021 11:05 AM
[2021-05-12] MEDS: MIRTAZAPINE TAB 15 MG TAB PO SCH (20:34)
[2021-05-13] MEDS: POLYETHYLENE (MIRALAX) 17 GM PACK PO SCH ×2 (02:39→07:35)
[2021-05-13 06:34] LABS: Hematocrit (blood only) 46.5 % (42-52); Hemoglobin 15.7 g/dL (14.0-18.0); Mean Corpuscular Hemoglobin 30.4 pg (25-34); Mean Corpuscular Hgb Conc 33.8 g/dL (32-36); Mean Corpuscular Volume 89.9 fL (80-100); Mean Platelet Volume 10.9 fL (7.4-10.4); Platelet Count 236 K/uL (130-400); RDW Coefficient of Variation 13.2 % (11.5-14.5); Red Blood Count 5.17 M/uL (4.7-6.1); White Blood Count 5.35 K/uL (4.8-10.8)
[2021-05-13 07:14] LABS: BUN Creatinine Ratio 13.1 (10-20); Calcium 9.6 mg/dl (8.5-10.1); Creatinine Clr Calc Pharmacy 162.1 ml/min; Est GFR (African American) 142.9 ml/min; Est GFR (Non-African American) 123.3 ml/min; Potassium 4.2 mmol/L (3.5-5.1)
--- NOTE | 2021-05-13 08:15 | Communication Note ---
Date of Service: May 13, 2021 Battery appears in sigmoid colon. NPO. KUB this AM. If KUB still shows retained battery will do flex sig today for attempted removal. Update: Patient passed the battery with his BM and KUB confirmed this. Recall GI if needed.
--- NOTE | 2021-05-13 10:12 | Hospitalist Progress Note ---
Date of Service May 13, 2021 Assessment & Plan (1) Swallowed foreign body: Plan: This is a 30yo M from [facility] with PMH of HTN, possible history of WPW, mood disorder, history of partial gastrectomy who presents after ingestion of foreign body. S/P EGD 05/09/21: retrieved 1 AAA battery and spork. 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 Lundberg. Please see addendum. Admission and Anticipated Discharge Date Admission Date: May 11, 2021 Supervising Physician Co-Signing Physician Notes I have seen and examined the patient and have discussed the case with the provider above. I agree with the assessment and plan as stated. I separately saw and examined the patient. Abdomen is benigng and he is hemodynamically stable, afebrile, mentating and ambulating at baseline and tolerating PO. Agree with discharge in stable condition to [facility]. DO Toño Subjective Patient was seen and examined in room 353-2. Follow up swallowing of batteries. Had a bowel movement this morning following KUB and battery was visualized. Denies any acute concerns. Tolerating regular diet. No nausea or abdominal pain. No fever, chills, chest pain, shortness of breath or dysuria. Per GI, will order stat KUB to confirm passage of battery prior to discharge to [place]. Review of Systems Review of Systems: At least ten systems reviewed and negative except as noted in the HPI. Physical Exam Physical Exam: General Appearance: WD/WN, vitals as above, NAD, sitting up in bed, pleasant, conversing easily Head: normocephalic, atraumatic Eyes: normal inspection, PERRL, conjunctivae normal, anicteric sclerae ENT: external ear and nose normal, oropharynx normal Neck: normal visual inspection, trachea midline, no thyromegaly Respiratory: normal respiratory effort, lungs clear to auscultation, no wheeze, rales, rhonchi. No accessory muscle use Cardiovascular: bradycardic rhythm, no murmur, normal peripheral pulses, no BLE edema. Vessels: no JVD Chest: normal inspection of chest Abdomen/GI: normal bowel sounds, soft, nontender, no hepatosplenomegaly Extremities/Musculoskeletal: no cyanosis or clubbing, extremities motor strength 5/5 Neurologic: PERRL, EOMI, accommodation nl, no face palsy, no dysarthria, CN's II-XI intact bilaterally and moves all extremities Psychiatric: A+Ox3, euthymic affect Skin: no rashes, normal color, warm/dry Results & Data Results & Data ([facility] [place]) Vital Signs (Past 12 Hours) Vital Signs Temp Pulse Resp BP Pulse Ox 05/13/21 08:22 36.7 C 70 16 129/89 99 05/12/21 23:26 36.6 C 75 16 128/79 97 Laboratory Results Short CBC 05/13/21 Range/Units 06:09 WBC 5.35 (4.8-10.8) K/uL Hgb 15.7 (14.0-18.0) g/dL Hct 46.5 (42-52) % Plt Count 236 (130-400) K/uL BMP 05/13/21 06:09 Sodium 138 Potassium 4.2 Chloride 104 Carbon Dioxide 30 BUN 10 Creatinine 0.76 Glucose 106 H Calcium 9.6 Diagnostic Findings KUB X-Ray 05/09/21 07:29 KUB HISTORY: Foreign body ingestion "swallowed 2 AAA batteries and spork" - 11:30pm COMPARISON: KUB 09/04/2014 FINDINGS: Nonobstructive bowel gas pattern. Surgical clips project over the abdominal right lower quadrant and left upper quadrant.a there are 3 round radiopaque buttonlike devices projecting over the right lateral lower abdomen and right hemipelvis which may be external to the patient. There are 2 cylindrical batteries projected over the abdominal left upper quadrant measuring up to approximately 4 cm. Moderate fecal retention. There is a 4.2 cm ill- defined curvilinear radiodensity medial to the more proximal battery. No renal calculi. No ureteral calculi. No pneumoperitoneum or pneumatosis. No fracture. IMPRESSION: 1. Two batteries project over the stomach. There is an additional 4.2 cm ill- defined radiodensity medial to the batteries which may be artifactual or represent an additional ingested foreign body. ACT 112: Negative or not required by law. The above report was generated using voice recognition software. It may contain grammatical, syntax or spelling errors. Electronically signed by: Britton Will M.D. 05/09/2021 8:16 AM KUB X-Ray 05/09/21 13:53 KUB HISTORY: Follow up study status post EVD post egd COMPARISON: KUB of same day at 7:31 AM FINDINGS: Nonobstructive bowel gas pattern. Surgical clips of the abdominal left upper quadrant. Interval removal of one of the batteries. 1 battery persists within the mid abdomen. No additional ingested opaque foreign bodies identified. Mild fecal retention. No renal calculi. No ureteral calculi. No pneumoperitoneum or pneumatosis. No fracture. IMPRESSION: 1. Interval removal of one of the ingested batteries. 1 battery persists within the central abdomen. 2. No pneumoperitoneum. ACT 112: Negative or not required by law. The above report was generated using voice recognition software. It may contain grammatical, syntax or spelling errors. Electronically signed by: Britton Will M.D. 05/09/2021 2:33 PM KUB X-Ray 05/10/21 06:30 KUB HISTORY: Evaluate for foreign body. s/p EGD 1 battery past stomach COMPARISON: KUB 05/09/2021. FINDINGS: The bowel gas pattern is unremarkable. No evidence for a bowel obstruction. No renal calculi. No ureteral calculi. No pneumoperitoneum or pneumatosis. There is a battery located within the right midabdomen. This could be within the jejunum or proximal colon. There are suture material and surgical clips within the left upper quadrant. Borderline distended gas-filled loops of large and small bowel. This could be postprocedural or represent a mild ileus. IMPRESSION: There is again noted a battery located within the right midabdomen. This could be within the small bowel or proximal colon. No pneumoperitoneum. ACT 112: Negative or not required by law. Electronically signed by: Faheem Christy M.D. 05/10/2021 10:14 AM Finger X-Ray 05/10/21 08:53 XR finger(s) RT min 2V INDICATION: MN ^Y ^fall 2 weeks ago, finger pain. TECHNIQUE: 2 views of the right fourth digit were obtained. Comparison: None available at the time of this dictation. FINDINGS: There is no evidence of an acute fracture. The alignment is anatomic. Joint spaces are well-maintained. No soft tissue abnormality is identified. Incidentally noted is deformity of the fifth metacarpal head which is likely chronic. IMPRESSION: No evidence of acute bony injury. ACT 112: Negative or not required by law. Electronically signed by: Sukhjinder Blair M.D. 05/10/2021 10:12 AM KUB X-Ray 05/10/21 21:00 XR KUB/Abdomen 1 view INDICATION: MN ^assess passage of battery ^TO BE DONE AT 2100. TECHNIQUE: 1 view of the abdomen was obtained. Comparison: Comparison is made to abdomen one view 05/10/2021 at only 12 hours FINDINGS: The lung bases are clear. The osseous structures are grossly unremarkable. The bowel gas pattern is nonobstructive. Previously noted chaz shaped radiodensity now projects of the sigmoid colon. IMPRESSION: Battery is now seen in the region of the sigmoid colon. ACT 112: Negative or not required by law. Electronically signed by: Sukhjinder Blair M.D. 05/11/2021 7:08 AM KUB X-Ray 05/11/21 08:36 XR KUB/Abdomen 1 view INDICATION: MN ^Check Battery location. TECHNIQUE: 1 view of the abdomen was obtained. Comparison: Comparison is made to abdomen one view 05/10/2021 FINDINGS: The lung bases are clear. The osseous structures are grossly unremarkable. The bowel gas pattern is nonobstructive. The radiodense foreign body remains in the sigmoid colon. IMPRESSION: Ingested battery remains in the sigmoid colon. ACT 112: Negative or not required by law. Electronically signed by: Sukhjinder Blair M.D. 05/11/2021 10:02 AM KUB X-Ray 05/12/21 08:00 XR KUB/Abdomen 1 view CLINICAL HISTORY: swallowed batteries COMPARISON STUDY: May 11, 2021 FINDINGS: Multiple nondilated stool and gas filled loops of bowel are again seen. Stable position of elongated radiodense foreign body within pelvis, within anatomical region of sigmoid colon which is unchanged since prior. Small metallic density is projecting to the mid abdomen, might represent foreign and previously was seen within left hemiabdomen. IMPRESSION: 1. Nonobstructive bowel gas pattern. 2. Stable position of foreign body within pelvic region. 3. The rest of findings as above. ACT 112: Negative or not required by law. The above report was generated using voice recognition software. It may contain grammatical, syntax or spelling errors. Electronically signed by: Christine Liang DO 05/12/2021 11:05 AM
--- NOTE | 2021-05-13 10:19 | XRay Report ---
KUB CLINICAL HISTORY: confirm passed battery COMPARISON STUDY: KUB May 13, 2021 at 8:24 AM. FINDINGS: Cholecystectomy clips are noted. There is a right pelvic surgical clips. The metallic radio density projecting over the pelvis consistent with a battery on prior exam is no longer identified. T his has passed. IMPRESSION: Interval passage of the battery within the rectum shown on prior exam. ACT 112: Negative or not required by law. Electronically signed by: Scar Porter M.D. 05/13/2021 10:18 AM
--- NOTE | 2021-05-13 10:28 | XRay Report ---
KUB CLINICAL HISTORY: ingested battery COMPARISON STUDY: KUB May 12, 2021 at 9:12 AM. FINDINGS: A metallic foreign body consistent with a battery within the pelvis is unchanged in positio n. This is probably within the rectum. A prominent loop of small bowel is noted without convincing ev idence for a bowel obstruction. A 1.3 cm linear metallic density, possibly reflecting a staple, proje cts over the right lower quadrant. This is unchanged in position since prior exam. IMPRESSION: 1. No change in position of a metallic foreign body projecting over the pelvis. This represents a bat glenn likely within the rectum. 2. Change in position of a 1.3 cm linear metallic density within the right lower quadrant. This favor s an additional ingested foreign body, possibly at the ileocecal valve. This may reflect a staple. ACT 112: Negative or not required by law. Electronically signed by: Scar Porter M.D. 05/13/2021 10:27 AM
--- NOTE | 2021-05-13 10:30 | Discharge Summary ---
Date of Service May 13, 2021 Admission HPI Per Admitting Provider This is a 30yo M from [facility] with PMH of HTN, history of WPW, mood disorder, history of partial gastrectomy who presents after ingestion of foreign body. Patient admits to swallowing 2 batteries last evening around midnight. Also swallowed a plastic spork. Underwent EGD with foreign body removal with removal of one battery and spork but second battery was not seen. Likely migrated down to the ileum, per GI. Feeling well in PACU. Denies any nausea, vomiting, abdominal pain. No bowel movement yet today. No fever, chills, headache, lightheadedness, chest pain, SOB, dysuria, diarrhea or constipation. Patient is being admitted for further observation until he is able to pass remaining battery. Plan for repeat KUB today and serial KUBs until able to pass battery in bowel movement. Admission Exam Per Admitting Provider General Appearance: WD/WN, vitals as above, NAD, sitting up in bed, pleasant, conversing easily Head: normocephalic, atraumatic Eyes: normal inspection, PERRL, conjunctivae normal, anicteric sclerae ENT: external ear and nose normal, oropharynx normal Neck: normal visual inspection, trachea midline, no thyromegaly Respiratory: normal respiratory effort, lungs clear to auscultation, no wheeze, rales, rhonchi. No accessory muscle use Cardiovascular: bradycardic rhythm, no murmur, normal peripheral pulses, no BLE edema. Vessels: no JVD Chest: normal inspection of chest Abdomen/GI: normal bowel sounds, soft, nontender, no hepatosplenomegaly Extremities/Musculoskeletal: no cyanosis or clubbing, extremities motor strength 5/5 Neurologic: PERRL, EOMI, accommodation nl, no face palsy, no dysarthria, CN's II-XI intact bilaterally and moves all extremities Psychiatric: A+Ox3, euthymic affect Skin: no rashes, normal color, warm/dry Principal Diagnosis Ingested foreign bodies Discharge Exam General Appearance: WD/WN, vitals as above, NAD, sitting up in bed, pleasant, conversing easily Head: normocephalic, atraumatic Eyes: normal inspection, PERRL, conjunctivae normal, anicteric sclerae ENT: external ear and nose normal, oropharynx normal Neck: normal visual inspection, trachea midline, no thyromegaly Respiratory: normal respiratory effort, lungs clear to auscultation, no wheeze, rales, rhonchi. No accessory muscle use Cardiovascular: regular rate, rhythm, no murmur, normal peripheral pulses, no BLE edema. Vessels: no JVD Chest: normal inspection of chest Abdomen/GI: normal bowel sounds, soft, nontender, no hepatosplenomegaly Extremities/Musculoskeletal: no cyanosis or clubbing, extremities motor strength 5/5 Neurologic: PERRL, EOMI, accommodation nl, no face palsy, no dysarthria, CN's II-XI intact bilaterally and moves all extremities Psychiatric: A+Ox3, euthymic affect Skin: no rashes, normal color, warm/dry Discharge Data Allergies Allergy/AdvReac Type Severity Reaction Status Date / Time sertraline [From Zoloft] Allergy Unknown Per record Unverified 05/09/21 07:58 from [facility] Consultations 05/09/21 09:20 Consult Gastroenterology Stat Procedures Performed Operation Date: 05/09/21 15:35 Actual Procedures p Esophagogastroduodenoscopy Foreign Body Removal(Not Applicable) - Elena Garcia MD Hospital Course (1) Swallowed foreign body: (2) Hypertension: (3) Insomnia: (4) WPW (Sljpr-Szlxifpln-Kepuo syndrome): (5) Borderline personality disorder: This is a 30yo M from [facility] with PMH of HTN, possible history of WPW, mood disorder, history of partial gastrectomy who presents after ingestion of foreign body. Patient swallowed 2 batteries and a plastic spork. States he did this as a method of self harm but denies suicidal ideation. Has refused psychiatric evaluation during admission. Underwent EGD on 05/09/21 and 1 AAA battery and spork were retrieved. Was started on bowel regimen with serial KUBs since then. Had bowel movement today and passed remaining AAA battery. Confirmed this on repeat KUB. At time of discharge patient is well appearing, asymptomatic, hemodynamically stable and tolerating regular diet. Will be discharged back to [facility] today. Will provide warm hand off with [facility]. Total Time Total Time Spent Total Time Spent (In Minutes): 35 Discharge Plan Discharge Items [facility] Reason For Visit: FOREIGN BODY INGESTION Discharge Diagnosis: Foreign Body Ingestion Activity: Resume your previous activity Non-emergency contact: Primary Care Provider Call non-emergency contact if: you have any medication questions, your symptoms worsen, your pain is concerning for you, you have a fever and your temperature is above 101 Follow-up/Referrals: Rafaela STARR [Non-Staff] - Diet: Regular Addtl Attending Provider Instructions: MEDICATION CHANGES: None Continue your current medication regimen. SUMMARY OF TEST RESULTS: You swallowed 2 batteries and a spork. You underwent an EGD to retrieve foreign bodies; 1 battery and 1 spork was obtained. The other battery had to pass through your GI tract. PENDING TEST RESULTS: None RECOMMENDATIONS FOR FOLLOW-UP: It is recommended you do not swallow foreign objects of any kind as it can cause severe harm, injury or . Please follow up with [facility]. Please continue current medication regimen. OTHER INSTRUCTIONS: Seek medical attention if you have: * temperature above 101 * chest pain or trouble breathing * abdominal pain, nausea, vomiting * diarrhea, dark stools or bloody stools * any unanswered questions or concerns Call 911 if symptoms are severe. Please take good care of yourself. It has been a pleasure taking care of you. Please take care of yourself. If you have any questions regarding your recent hospitalization please contact [facility] and [facility] @ [phone]. Macrina Rosado PA-C Pending Studies at Discharge: No Stand-Alone Forms: My [facility] Skilled Items Patient informed of condition?: Yes Discharge Level of Care: Other Communicable Disease: No Discharge Prognosis: Stable Lines: None Urinary Catheter: No Medications and DC Order Prescriptions: Continued mirtazapine 15 mg Tablet 15 mg PO HS RF: 0 Discontinued polyethylene glycol 3350 [Miralax] 17 gram/dose Powder 17 g PO DAILY RF: 0 Discharge Orders: Discharge Order (Routine); Ordered 05/13/21 Ordered By: Macrina Rosado Admission Data Admit Date/Time: 05/11/21 20:25 Attending Provider: Yvette Lundberg Admit Provider: Ana Maria Worthington Primary Care Provider: Ronald STARR Other Providers: Jerrica Mayfield ; Rach Catalan ; Macrina Rosado Other Interventions: Discharge Summary Assessment (RN) Last Done: 05/13/21 11:06 Supervising Physician Co-Signing Physician Notes I have seen and examined the patient and have discussed the case with the provider above. I agree with the assessment and plan as stated. I separately saw and examined the patient. Abdomen is benigng and he is hemodynamically stable, afebrile, mentating and ambulating at baseline and tolerating PO. Agree with discharge in stable condition to retirement. Toño, DO
== END 2021-05-13 14:37 | DRG 395 ==
LOC: ED 07:13 → 3W 10:17 → OR 10:17 → SUATTDRO 12:22

== ENCOUNTER 2021-06-03 07:48 | Observation (INO) ==
--- NOTE | 2021-06-03 08:45 | Emergency Department Note ---
Impression & Plan Swallowed foreign body ED Provider Note NAME: ELLIS [id number] LIZZ AGE: 30 SEX: M ARRIVES VIA: Walk-In INFORMANT: Patient, ED PROVIDER(S): Mike Lyon MD CHIEF COMPLAINT: Foreign body ingestion. PLAN: Disposition: Admit MEDICAL DECISION MAKING: The patient is a 30-year-old gentleman, current residential inmate at [facility] who presents to emergency department for evaluation of foreign body ingestion reports he swallowed a vape pen last night at 10 PM attempting to hurt himself "but not kill himself" as he reports he does this to relieve stress and felt better. He has a history of swallowing foreign bodies and ingestions. He reports he told staff at his residential facility that he took Tylenol but he reports now that he did not take Tylenol and only said this to ensure he was transported to the emergency department as he was worried they would not pay attention to his report of a vape pen ingestion any mind. He denies any recent illness, fevers, chills, cough, congestion, GI or symptoms. He reports he did get vaccinated for COVID-19 with the J&J vaccine. On arrival patient is well-appearing in no distress, afebrile with stable vital signs. Exam is unremarkable. Chest x-ray KUB was performed and confirms ingestion of the patient's vape pen. Covid-19 PCR negative. Case was reviewed with Vesna BUTTERFIELD on-call ANNA Dorsey with Dr. Nair who will plan for EGD in the OR. Case was discussed with Vesna Griffin, with Dr. Phyllis banda who will evaluate the patient for admission. Triage Nursing notes reviewed and agree them. Prior medical records reviewed Vital Signs: reviewed and remarkable for no significant abnormalities Differential diagnosis: FB ingestion, obstruction, perforation, aspiration, among others. ER treatment provided: N/a. Laboratory studies: See below Imaging studies: See below Consultation(s): ANNA Dorsey with Vesna Clark on-call. Vesna Griffin, with Dr. Phyllis [facility] HPI: The patient is a 30-year-old gentleman, current residential inmate at [facility] who presents to emergency department for evaluation of foreign body ingestion reports he swallowed a vape pen last night at 10 PM attempting to hurt himself "but not kill himself" as he reports he does this to relieve stress and felt better. He has a history of swallowing foreign bodies and ingestions. He reports he told staff at his residential facility that he took Tylenol but he reports now that he did not take Tylenol and only said this to ensure he was transported to the emergency department as he was worried they would not pay attention to his report of a vape pen ingestion any mind. He denies any recent illness, fevers, chills, cough, congestion, GI or symptoms. He reports he did get vaccinated for COVID-19 with the J&J vaccine. ROS: See above HPI for pertinent positives & negatives. A total of 10 systems reviewed and were otherwise negative. PAST MEDICAL HISTORY:See Below PAST SURGICAL HISTORY:See Below FAMILY HISTORY:See Below SOCIAL HISTORY:See Below HOME MEDICATIONS:See Below ALLERGIES:See Below VITALS:See Below PHYSICAL EXAMINATION: GENERAL: Awake, alert, well-appearing, in no distress HENT: Normocephalic, atraumatic. Oropharynx unremarkable. EYES: Normal conjunctiva. Sclera non-icteric. NECK: Supple. No nuchal rigidity. FROM. No JVD. RESPIRATORY: Clear to auscultation. CARDIAC: Regular rate, normal rhythm. Extremities warm and well perfused. Pulses equal. ABDOMEN: Soft, non-distended. No tenderness to palpation. No rebound or guarding. No masses. RECTAL: Deferred. MUSCULOSKELETAL: Chest examination reveals no tenderness. The back is symmetrical on inspection without obvious abnormality. There is no CVA tenderness to palpation. No joint edema. LOWER EXTREMITIES: Calves are equal size bilaterally and non-tender. No edema. No discoloration. NEURO: Normal sensorium. No sensory or motor deficits noted. SKIN: No rash or jaundice noted. Mike Lyon MD Past Med/Surg History Medical History Borderline personality disorder Hypertension Insomnia WPW (Wcbux-Owfwjsftr-Zkewu syndrome) Surgical History History of partial gastrectomy Family History Other Diabetes Heart disease Stroke Social History Smoking Status: Current every day smoker Tobacco Type: E-cigarettes / Vaping Do You Dip or Chew Tobacco: No; Hx Alcohol Use: Yes Alcohol type: beer Hx Substance Use: Yes Last Used Substance Other:: 2018 Preferred Language: Czech Communication Ability: Effective Automatic Washer Mechanic Required: No Beliefs That Will Affect Care: None Current Living Situation: [facility] Feels Safe at Home: Yes Assistive Devices: None Allergies Allergies Allergy/AdvReac Type Severity Reaction Status Date / Time sertraline [From Zoloft] Allergy Unknown Per record Unverified 06/03/21 09:26 from [employer] Home Meds Home Medications Medication Instructions Recorded Confirmed aripiprazole 5 mg tablet (Abilify) 5 mg PO HS 06/03/21 06/03/21 diphenhydramine HCl 25 mg capsule 25 mg PO HS 06/03/21 06/03/21 (Benadryl) lactulose 10 gram/15 mL oral 30 g PO QAM 06/03/21 06/03/21 solution (Constulose) Results & Data (ED) Vital Signs Vital Signs - 24 hr 06/03/21 08:01 06/03/21 09:48 Temperature 36.3 C L Temperature Source Temporal Artery Scan Pulse Rate 77 Pulse Rate [Apical] 75 Pulse Rhythm [Apical] Regular Respiratory Rate 18 16 Blood Pressure 138/93 Blood Pressure [Left Arm] 128/76 Blood Pressure Mean 108 Blood Pressure Mean [Left Arm] 93 Pulse Oximetry 94 95 Oxygen Delivery Method Room Air Room Air Sepsis Recent Fever Within 48 Hours No Sepsis New/Unexplained Change in Mental Status No Sepsis Action Taken by Nursing No Action Required Laboratory Data Attestation: I reviewed the patient's lab results. Lab Results 06/03/21 06/03/21 Range/Units 08:44 08:44 COVID-19 Eval Order Covid19 at [facility] SARS-CoV-2 (PCR) NEGATIVE (Negative) Imaging Data Radiologist's Impression: Chest X-Ray 06/03/21 08:32 XR chest 1V portable, XR KUB/Abdomen 1 view HISTORY: 30 years-old Male swallowed e-cigarette foreign body ingestion COMPARISON: KUB 05/13/2021 chest radiograph 09/04/2014 TECHNIQUE: AP view the chest with KUB radiograph FINDINGS: CHEST: Cardiomediastinal and hilar silhouettes are within normal limits. No pneu mothorax, pleural effusion, airspace consolidation or overt pulmonary edema. No opaque foreign body. No acute fracture. KUB: There are 4 metallic density cee projecting over the abdominal left upper quadrant with one staple within the abdominal right lower quadrant. A button projects over the abdominal right upper quadrant. There is a linear 7.8 cm metallic density structure projecting over the midabdomen with electronic wires. Moderate fecal retention. No pneumatosis or pneumoperitoneum. Nonobstructive bowel gas pattern. No urolith or acute fracture. IMPRESSION: 1. No acute processes of the chest. 2. 7.8 cm metallic density foreign body likely correlating with the patient's reported ingested electronic cigarette projects over the midabdomen. 3. Additional metallic density foci of the abdominal left upper quadrant and right lower pelvis suggestive of ingested cee. 4. A button projects over the right upper quadrant of the abdomen which may be external to the patient. ACT 112: Negative or not required by law. The above report was generated using voice recognition software. It may contain grammatical, syntax or spelling errors. Electronically signed by: Britton Will M.D. 06/03/2021 9:10 AM KUB X-Ray 06/03/21 08:32 XR chest 1V portable, XR KUB/Abdomen 1 view HISTORY: 30 years-old Male swallowed e-cigarette foreign body ingestion COMPARISON: KUB 05/13/2021 chest radiograph 09/04/2014 TECHNIQUE: AP view the chest with KUB radiograph FINDINGS: CHEST: Cardiomediastinal and hilar silhouettes are within normal limits. No pneumothorax, pleural effusion, airspace consolidation or overt pulmonary edema. No opaque foreign body. No acute fracture. KUB: There are 4 metallic density cee projecting over the abdominal left upper quadrant with one staple within the abdominal right lower quadrant. A button projects over the abdominal right upper quadrant. There is a linear 7.8 cm metallic density structure projecting over the midabdomen with electronic wires. Moderate fecal retention. No pneumatosis or pneumoperitoneum. Nonobstructive bowel gas pattern. No urolith or acute fracture. IMPRESSION: 1. No acute processes of the chest. 2. 7.8 cm metallic density foreign body likely correlating with the patient's reported ingested electronic cigarette projects over the midabdomen. 3. Additional metallic density foci of the abdominal left upper quadrant and right lower pelvis suggestive of ingested cee. 4. A button projects over the right upper quadrant of the abdomen which may be external to the patient. ACT 112: Negative or not required by law. The above report was generated using voice recognition software. It may contain grammatical, syntax or spelling errors. Electronically signed by: Britton Will M.D. 06/03/2021 9:10 AM Discharge Plan Visit Data Chief Complaint: Foreign Body Stated Complaint: SWALLOWED AN E-CIG ED Provider: Mike Lyon Discharge Problem: Swallowed foreign body Patient Disposition: Admitted As Inpatient Discharge Instructions Interventions: ED Discharge Assessment Last Done: 06/03/21 12:49 Discharge Problem: Swallowed foreign body Qualifiers: Encounter type: initial encounter Qualified Code(s): T18.9XXA - Foreign body of alimentary tract, part unspecified, initial encounter
--- NOTE | 2021-06-03 09:12 | XRay Report ---
XR chest 1V portable, XR KUB/Abdomen 1 view HISTORY: 30 years-old Male swallowed e-cigarette foreign body ingestion COMPARISON: KUB 05/13/2021 chest radiograph 09/04/2014 TECHNIQUE: AP view the chest with KUB radiograph FINDINGS: CHEST: Cardiomediastinal and hilar silhouettes are within normal limits. No pneumothorax, pleural effusion, airspace consolidation or overt pulmonary edema. No opaque foreign body. No acute fracture. KUB: There are 4 metallic density cee projecting over the abdominal left upper quadrant with one stapl e within the abdominal right lower quadrant. A button projects over the abdominal right upper quadran t. There is a linear 7.8 cm metallic density structure projecting over the midabdomen with electronic wires. Moderate fecal retention. No pneumatosis or pneumoperitoneum. Nonobstructive bowel gas patter n. No urolith or acute fracture. IMPRESSION: 1. No acute processes of the chest. 2. 7.8 cm metallic density foreign body likely correlating with the patient's reported ingested elect ronic cigarette projects over the midabdomen. 3. Additional metallic density foci of the abdominal left upper quadrant and right lower pelvis sugge stive of ingested cee. 4. A button projects over the right upper quadrant of the abdomen which may be external to the patien t. ACT 112: Negative or not required by law. The above report was generated using voice recognition software. It may contain grammatical, syntax o r spelling errors. Electronically signed by: Britton Will M.D. 06/03/2021 9:10 AM
--- NOTE | 2021-06-03 11:02 | History & Physical Report ---
Date of Service June 03, 2021 Assessment & Plan (1) Swallowed foreign body: Plan: - Admit to med surg - GI consult for EGD and removal of foreign body, make NPO for now, pending finding allow gentle diet afterwards - KUB reviewed showing FB of e-cigarette - Consider psych consultation for anxiety with hx of repeat offense of swallowing foreign body - Safe tray with meals, one to one bedside sitter - Pt denies suicidal attempt but does this as attention seeking behavior to be removed from the [facility]. - Smoking cessation encouraged at bedside (2) WPW (Enryh-Cvptxfgdg-Fpqqr syndrome): Plan: - Hx of such, no records regarding this, has not followed with cardiology since 2018 and does not routinely see them. -Recently started exercising again - encouraged this as good stress relieving therapy - should be followed by cardiology as outpatient - scheduled for dc from [facility] in October 2021. (3) Hypertension: Plan: - Not on oral medications, monitor, BP stable currently - Likely stress induced (4) Borderline personality disorder: Plan: - Consider psych eval - Continue abilify 5 mg daily (5) History of partial gastrectomy: Plan: - Noted, chronic DVT ppx: teds CODE: FULL Dispo: From [facility], likely discharge within 1-2 days after removal of FB. History of Present Illness Primary Care Provider: RO Jacoby This is a 30 yo M with PMhx of HTN, history of WPW, mood disorder, history of partial gastrectomy who presents after ingestion of foreign body. He has previously been admitted for swallowing 2 batteries approximately 1 month ago where he required removal via EGD. Today, per review with GI and radiology, he has swallowed an e-cigarette. Pt admits to doing this around 10am last evening after a stressful situation. He denies wanting to talk about what triggers him to do these sort of things or why he swallow items. ER provider relayed that the patient told the [facility] that he took may tylenol to get out of the [facility] and come to the hospital, however did not actually take any tylenol. He denies abdominal pain, nausea, vomiting. Last BM was this morning and was normal. Pt is currently incarcerated [facility], and in October 2021 will have served max sentence of 10 years. He denies knowing what he'll do upon getting out. [place] is [place], and thinks he'll return to this area. He states " I'd rather be homeless than live with my mom and that situation" and when asked about getting his own apartment he states his brother may be able to help him out with this. He anticipates getting into some sort of legal trouble to get himself put back in assisted because he "knows the system" and feels like he understands it. He has recently started exercising, because otherwise his stress relief includes "beating and punching somebody until he gets put back in my cell", and when asked about punching a mattress or pillow instead, says it doesn't stand up well enough. He makes several other comments about beating, killing or taking care of other inmates who have done things to hurt women and children. Pt denies every seeing a therapist or psychiatrist. 2 male guards are present in the room during my visit. Allergies Allergy/AdvReac Type Severity Reaction Status Date / Time sertraline [From Zoloft] Allergy Unknown Per record Unverified 06/03/21 09:26 from [facility] Home Medications Medication Instructions Recorded Confirmed Type aripiprazole 5 mg tablet (Abilify) 5 mg PO HS 06/03/21 06/03/21 History diphenhydramine HCl 25 mg capsule 25 mg PO HS 06/03/21 06/03/21 History (Benadryl) lactulose 10 gram/15 mL oral 30 g PO QAM 06/03/21 06/03/21 History solution (Constulose) Past Med/Surg History Medical History Borderline personality disorder Hypertension Insomnia WPW (Fudzi-Lvgenzarn-Vqnwl syndrome) Surgical History History of partial gastrectomy Family History Other Diabetes Heart disease Stroke Social History Smoking Status: Current every day smoker Tobacco Type: E-cigarettes / Vaping Do You Dip or Chew Tobacco: No; Hx Alcohol Use: Yes Alcohol type: beer Hx Substance Use: Yes Last Used Substance Other:: 2018 Preferred Language: Indian Communication Ability: Effective Incident Commander Required: No Beliefs That Will Affect Care: None Current Living Situation: Other Current Living Situation Comment: [facility] Feels Safe at Home: Yes Assistive Devices: None Review of Systems Review of Systems: Constitutional: No fever, sweats or chills Eyes: No diplopia, no worsening or blurred vision ENT: normal hearing, no trouble swallowing Respiratory: No cough, sputum, dyspnea at rest or on exertion Cardiovascular: No chest pain, tightness or palpitations Abdomen: As per HPI. No pain, nausea, vomiting, diarrhea or constipation Musculoskeletal: No joint pain, calf pain, swelling Neurologic: No weakness, numbness/tingling, or balance problems Psychiatric: No anxiety or depression Skin: No rash or itch Physical Exam 2 Physical Exam: General: awake, alert, no apparent distress Head: Normocephalic, atraumatic ENT: PERRL, EOMI, no pharyngeal exudate, mucous membranes moist Chest: Clear to auscultation, on room air, no adventitious breath sounds Cardiac: Regular rate and rhythm, no murmur, no JVD, normal peripheral pulses, good capillary refill Abdominal: NABS x 4 quadrants, soft, nondistended, nontender to palpation, no rebound or guarding Extremities: Normal inspection, no peripheral edema or erythema, calfs nontender to palpation Psych: Normal mood and affect Neuro: AAO x 3, strength intact bilaterally and rated 5/5, no motor deficits, speech is clear, no peripheral sensory deficits Results & Data Results & Data ([facility]) Vital Signs (Past 12 Hours) Vital Signs Temp Pulse Pulse Resp BP BP Pulse Ox 06/03/21 09:48 75 16 128/76 95 06/03/21 08:01 36.3 C L 77 18 138/93 94 Diagnostic Findings Chest X-Ray 06/03/21 08:32 XR chest 1V portable, XR KUB/Abdomen 1 view HISTORY: 30 years-old Male swallowed e-cigarette foreign body ingestion COMPARISON: KUB 05/13/2021 chest radiograph 09/04/2014 TECHNIQUE: AP view the chest with KUB radiograph FINDINGS: CHEST: Cardiomediastinal and hilar silhouettes are within normal limits. No pneumothorax, pleural effusion, airspace consolidation or overt pulmonary edema. No opaque foreign body. No acute fracture. KUB: There are 4 metallic density cee projecting over the abdominal left upper quadrant with one staple within the abdominal right lower quadrant. A button projects over the abdominal right upper quadrant. There is a linear 7.8 cm metallic density structure projecting over the midabdomen with electronic wires. Moderate fecal retention. No pneumatosis or pneumoperitoneum. Nonobstructive bowel gas pattern. No urolith or acute fracture. IMPRESSION: 1. No acute processes of the chest. 2. 7.8 cm metallic density foreign body likely correlating with the patient's reported ingested electronic cigarette projects over the midabdomen. 3. Additional metallic density foci of the abdominal left upper quadrant and right lower pelvis suggestive of ingested cee. 4. A button projects over the right upper quadrant of the abdomen which may be external to the patient. ACT 112: Negative or not required by law. The above report was generated using voice recognition software. It may contain grammatical, syntax or spelling errors. Electronically signed by: Britton Will M.D. 06/03/2021 9:10 AM KUB X-Ray 06/03/21 08:32 XR chest 1V portable, XR KUB/Abdomen 1 view HISTORY: 30 years-old Male swallowed e-cigarette foreign body ingestion COMPARISON: KUB 05/13/2021 chest radiograph 09/04/2014 TECHNIQUE: AP view the chest with KUB radiograph FINDINGS: CHEST: Cardiomediastinal and hilar silhouettes are within normal limits. No pneumothorax, pleural effusion, airspace consolidation or overt pulmonary edema. No opaque foreign body. No acute fracture. KUB: There are 4 metallic density cee projecting over the abdominal left upper quadrant with one staple within the abdominal right lower quadrant. A button projects over the abdominal right upper quadrant. There is a linear 7.8 cm metallic density structure projecting over the midabdomen with electronic wires. Moderate fecal retention. No pneumatosis or pneumoperitoneum. Nonobstructive bowel gas pattern. No urolith or acute fracture. IMPRESSION: 1. No acute processes of the chest. 2. 7.8 cm metallic density foreign body likely correlating with the patient's reported ingested electronic cigarette projects over the midabdomen. 3. Additional metallic density foci of the abdominal left upper quadrant and right lower pelvis suggestive of ingested cee. 4. A button projects over the right upper quadrant of the abdomen which may be external to the patient. ACT 112: Negative or not required by law. The above report was generated using voice recognition software. It may contain grammatical, syntax or spelling errors. Electronically signed by: Britton Will M.D. 06/03/2021 9:10 AM Code Status & VTE Plan Code Status Full code Supervising Physician Co-Signing Physician Notes Pt was seen and examined with 2 officers at bedside. Agreed with Elly MOCK exam, assessment and plan. 30 yo M with PMhx of HTN, history of WPW, mood disorder, history of partial gastrectomy who presents after ingestion of foreign body. He had multiple previous admission for swallowing batteries approximately 1 month ago where he required removal via EGD. KUB done on admission that showed 7.8 cm metallic density foreign body likely correlating with the patient's reported ingested electronic cigarette projects over the midabdomen. He had and EGD done by GI that removed an e-cigarette. GI recommended to get CT abdomen to evaluate the cee and surgery consult. Will start on clear liquid diet after seeing by surgery. Continue monitor closely. MD Phyllis
--- NOTE | 2021-06-03 11:34 | Anesthesiology Consultation ---
Date of Service June 03, 2021 Assessment & Plan (1) Encounter for pre-operative examination: Chart Review Chart Review: Acceptable Risk for Surgery History Surgery Operation Date: 06/03/21 09:20 Proposed Procedures p Esophagogastroduodenoscopy - Haley Nair DO Height/Weight Weight: 85.3 kg Allergies Allergy/AdvReac Type Severity Reaction Status Date / Time sertraline [From Zoloft] Allergy Unknown Per record Unverified 06/03/21 09:26 from [facility] Medications Home Medications Medication Instructions Recorded Confirmed Last Taken aripiprazole 5 mg tablet (Abilify) 5 mg PO HS 06/03/21 06/03/21 06/02/21 diphenhydramine HCl 25 mg capsule 25 mg PO HS 06/03/21 06/03/21 06/02/21 (Benadryl) lactulose 10 gram/15 mL oral 30 g PO QAM 06/03/21 06/03/21 06/02/21 solution (Constulose) Past Medical History Medical History Borderline personality disorder Hypertension Insomnia WPW (Cjcrj-Fgxasronj-Wiekw syndrome) Past Family History Family History Other Diabetes Heart disease Stroke Past Surgical History Surgical History History of partial gastrectomy Social History Smoking Status: Current every day smoker tobacco type: e-cigarettes Hx Alcohol Use: Yes Alcohol type: beer alcohol intake frequency: other Hx Substance Use: Yes substance use type: marijuana Last Used Substance Other:: 2018 Physical Exam Vital Signs Last Vital Signs Temp 36.3 C L 06/03/21 08:01 Pulse 75 06/03/21 09:48 Resp 16 06/03/21 09:48 BP 128/76 06/03/21 09:48 Pulse Ox 95 06/03/21 09:48
--- NOTE | 2021-06-03 11:59 | Gastrointestinal Consultation ---
Date of Consultation June 03, 2021 Assessment & Plan (1) Swallowed foreign body: EGD today in the OR for removal of this foreign body. Please keep the patient n.p.o,. Further recommendations to follow EGD. Supervising Physician Co-Signing Physician Notes I saw and evaluated the patient. The patient has a history of recurrent foreign body ingestion last which was swallowed in April. He presents today for sw allowing a larger object. Endoscopy has been requested for removal. Physical examination No obvious distress No scleral icterus No abdominal tenderness Impression: Patient with recurrent foreign body ingestion. We will plan for upper endoscopy today for foreign body removal. Given the nature of the foreign body there is a higher than average risk of perforation. Recommendations Upper endoscopy for foreign body removal History of Present Illness Reason for Consultation: Ingestion of foreign body Requesting Physician: Dr. Lyon [facility] History of Present Illness Mr. Richard Paniagua is a 30-year-old prisoner at the [facility], with an otherwise unremarkable past medical history who presented this morning because he reported having swallowed a e-cigarette last evening around 7 PM. He reports minor upper abdomen pain he has drank a bit of water most recently at 7 AM but has otherwise not eaten or drank after swallowing this e-cigarette. He denies having had a bowel movement after ingestion for before arrival. He did have a witnessed large brown loose bowel movement this morning in the ED. He has not had any nausea or vomiting. Unfortunately, it is a habit that he ingests foreign objects, most recently batteries about a month ago. Allergies Allergy/AdvReac Type Severity Reaction Status Date / Time sertraline [From Zoloft] Allergy Unknown Per record Unverified 06/03/21 09:26 from [facility] Home Medications Medication Instructions Recorded Confirmed Type aripiprazole 5 mg tablet (Abilify) 5 mg PO HS 06/03/21 06/03/21 History diphenhydramine HCl 25 mg capsule 25 mg PO HS 06/03/21 06/03/21 History (Benadryl) lactulose 10 gram/15 mL oral 30 g PO QAM 06/03/21 06/03/21 History solution (Constulose) Patient History Medical History Borderline personality disorder Hypertension Insomnia WPW (Vwaff-Agmftdblc-Xfyva syndrome) Surgical History History of partial gastrectomy Family History Other Diabetes Heart disease Stroke Social History Smoking Status: Current every day smoker Tobacco Type: E-cigarettes / Vaping Hx Alcohol Use: Yes Alcohol type: beer Hx Substance Use: Yes Last Used Substance Other:: 2018 Preferred Language: Urdu Communication Ability: Effective Child Welfare Director Required: No Beliefs That Will Affect Care: None Current Living Situation: Other Current Living Situation Comment: [facility] Feels Safe at Home: Yes Assistive Devices: None Review of Systems Review of Systems: ROS: Gen: Denies weakness, fevers, weight loss Eyes: No eye redness, or pain, no recent vision changes Resp: No SOB, no cough Cardio: No palpitations/irregular beats, no chest pain GI: No abdominal pain, no nausea/vomiting : Denies pain on urination Skin: No jaundice, itching or new rashes Physical Exam Constitutional: well developed, + ill appearing, + thin and cooperative Eyes: PERRL, conjunctivae normal, anicteric sclerae Respiratory: normal respiratory effort, lungs clear to auscultation normal respiratory effort and able to speak in complete sentences; no respiratory distress, no labored breathing, does not use accessory muscles and no cough Cardiovascular: RRR, no murmur, no edema Gastrointestinal (Abdomen): normal bowel sounds, soft, nontender, no hepatosplenomegaly Skin: no rashes, warm and dry normal turgor and + pallor Neurologic: PERRL, EOMI, accommodation nl, no face palsy, no dysarthria awake; not confused Psychiatric: A+Ox3, euthymic affect Orientation: alert, oriented x 3 and cooperative Results & Data ([facility]) Vital Signs (Past 12 Hours) Vital Signs Temp Pulse Pulse Resp BP BP Pulse Ox 06/03/21 11:32 72 18 122/86 92 06/03/21 09:48 75 16 128/76 95 06/03/21 08:01 36.3 C L 77 18 138/93 94 Laboratory Results Covid negative Diagnostic Findings Abdominal x-ray suggesting the e-cigarette is in the gastric antrum
[2021-06-03] MEDS ORDERED: fentaNYL citrate 100 MCG/2 ML VIAL IV PRN (13:03)
[2021-06-03] MEDS ORDERED: ATROPINE SULFATE 0.1 MG/ML 10ML SYR IV PRN (13:03)
[2021-06-03] MEDS ORDERED: ONDANSETRON INJ 2 MG/ML 2 ML VIAL IV PRN ×2 (13:03→16:31)
[2021-06-03] MEDS ORDERED: fentaNYL citrate 100 MCG/2 ML VIAL ONE (13:05)
[2021-06-03] MEDS ORDERED: PROPOFOL IV EMULSION 10 MG/ML 20 ML VIAL IV ONE (13:05)
[2021-06-03] MEDS ORDERED: SUCCINYLCHOLINE CHLORIDE 20 MG/ML 10 ML VIAL IV ONE (13:05)
--- NOTE | 2021-06-03 14:30 | GI REPORT ---
Patient Name: Abhi Duarte Procedure Date: 06/03/2021 2:04 PM Date of : 1990 Admit Type: Outpatient Age: 30 Gender: Male Attending MD: Haley Nair DO Procedure: Upper GI endoscopy Providers: Haley Nair DO Referring MD: Ronald Pereira Indications: Foreign body in the stomach Medicines: General Anesthesia Complications: No immediate complications. Estimated blood loss: Minimal. Estimated Blood Loss: Estimated blood loss was minimal. Procedure: Pre-Anesthesia Assessment: - Prior to the procedure, a History and Physical was performed, and patient medications, allergies and sensitivities were reviewed. The patient's tolerance of previous anesthesia was reviewed. - The risks and benefits of the procedure and the sedation options and risks were discussed with the patient. All questions were answered and informed consent was obtained. - Patient identification and proposed procedure were verified prior to the procedure by the physician, the nurse and the studio operations manager. The procedure was verified in the procedure room. - Pre-procedure physical examination revealed no contraindications to sedation. - ASA Grade Assessment: II - A patient with mild systemic disease. - After reviewing the risks and benefits, the patient was deemed in satisfactory condition to undergo the procedure. - The anesthesia plan was to use general anesthesia. - Immediately prior to administration of medications, the patient was re-assessed for adequacy to receive sedatives. - The heart rate, respiratory rate, oxygen saturations, blood pressure, adequacy of pulmonary ventilation, and response to care were monitored throughout the procedure. - The physical status of the patient was re-assessed after the procedure. After obtaining informed consent, the endoscope was passed under direct vision. Throughout the procedure, the patient's blood pressure, pulse, and oxygen saturations were monitored continuously. The Scope was introduced through the mouth, and advanced to the third part of duodenum. The upper GI endoscopy was accomplished without difficulty. The patient tolerated the procedure well. Findings: The examined esophagus was normal. Electronic cigarette were found in the gastric antrum. Removal was accomplished with a Raptor grasping device and snare. The examined duodenum was normal. Impression: - Normal esophagus. - Electronic cigarette were found in the stomach. Removal was successful. - Normal examined duodenum. Recommendation: - Return patient to [facility] for [facility] care. - Perform CT scan (computed tomography) of the abdomen without contrast today given the question of ingested cee on the patient's abdominal x-ray. - Refer to a surgeon given the ingestion of cee, patient will likely need to have serial KUBs performed at the shelter for follow-up. Haley Nair D.O. Haley Nair, 06/03/2021 2:29:26 PM This report has been signed electronically. Note Initiated On: 06/03/2021 2:04 PM Number of Addenda: 0 I attest to the content of the Intraoperative Record and orders documented therein, exceptions below {[id number]}
--- NOTE | 2021-06-03 14:30 | Post Operative Brief Note ---
Immediate Post Op Note v1 Date of Surgery June 03, 2021 Pre & Post Diagnosis Operation Date: 06/03/21 08:20 Pre-Op Diagnosis: foreign body ingestion Post-Op Diagnosis: foreign body ingestion I identified the patient and participated in the time-out.: Yes Procedure Operation Date: 06/03/21 08:20 <No data on this case meets the specified criteria> Surgeon Haley Nair, Scrap Crusher none Estimated Blood Loss 0 Findings Consistent with Post-Op Diagnosis
--- NOTE | 2021-06-03 14:31 | Communication Note ---
Date of Service: June 03, 2021 The patient underwent successful removal of the ingested e-cigarette this afternoon. Review of the KUB report does indicate that he may have swallowed s ome cee as well which appear to be within the small bowel. I would suggest a noncontrast CT of the abdomen and a general surgery consultation. Based on the recommendations the patient can likely be returned to the present for serial abdominal x-rays to be performed there. Please call with any questions or concerns, GI to sign off
--- NOTE | 2021-06-03 15:09 | Anesthesiology Progress Note ---
Date of Service June 03, 2021 Anesthesia Post Procedure Vital Signs Vital Signs: Temp Pulse Pulse Pulse Resp BP BP 06/03/21 14:55 58 L 14 124/76 06/03/21 14:45 63 16 117/70 06/03/21 14:39 36.3 C L 66 12 120/72 06/03/21 12:48 36.9 C 63 100 H 139/72 06/03/21 11:32 72 18 122/86 06/03/21 09:48 75 16 128/76 06/03/21 08:01 36.3 C L 77 18 138/93 Pulse Ox 06/03/21 14:55 100 06/03/21 14:45 100 06/03/21 14:39 100 06/03/21 12:48 100 06/03/21 11:32 92 06/03/21 09:48 95 06/03/21 08:01 94 Transfer of Care Handoff Completed per policy Notes Mental Status: alert / awake / arousable Patient Amnestic to Procedure: Yes Nausea / Vomiting: adequately controlled Pain: adequately controlled Airway Patency, RR, SpO2: stable & adequate BP & HR: stable & adequate Hydration State: stable & adequate Anesthetic Complications: no major complications apparent
[2021-06-03] MEDS ORDERED: MAGNESIUM HYDROXIDE SUSP 30 ML UDC PO PRN (15:37)
--- NOTE | 2021-06-03 18:06 | CT Scan Report ---
CT abdomen wo con CLINICAL HISTORY: foreign body ingestion ( cee) COMPARISON STUDY: KUB June 13, 2021. TECHNIQUE: Axial images of the abdomen were obtained without IV contrast. Automated exposure control was utilized for the study. A dose lowering technique was utilized adhering to the principles of ALA RA. FINDINGS: Lung bases are unremarkable. No pneumatosis, free air or portal venous gas within the abdom en is noted. Please note that the pelvis was not imaged on this exam. The metallic density within the abdomen on KUB performed earlier today is not visualized. Note is made of surgical clips and suture material along the anterior aspect of the gastric body. These are postsurgical. An adjacent metallic density within the upper abdomen is also extraluminal. Note is made of a 1 cm metallic density within the left lower quadrant. This is extraluminal. There is a small 4 mm metallic density within the cindi cending colon. No additional intraluminal metallic densities are identified. Water attenuation right renal lesion, measuring 1.4 cm is suboptimally assessed on this unenhanced exam. 20 cm water attenuat ion left renal lesion is also suboptimally assessed on this exam. However, these probably reflect cys ts. Unenhanced images of the liver, spleen, adrenal glands and pancreas are unremarkable. Is no evide nce for a bowel obstruction. No acute fracture or suspicious lesion is identified within the visualiz ed skeletal structures. IMPRESSION: 1. Nonvisualization of the 7.8 cm metallic density on KUB performed earlier today. 2. Small 4 mm metallic density within the descending colon. This could reflect a tiny ingested forei gn body. No additional intraluminal foreign bodies within the abdomen. Please note that the pelvis wa s not included on this exam. 3. Surgical staple line and surgical clips anterior to the body of the stomach which are postsurgical . 4. 1 cm metallic density within the left lower quadrant which is also extraluminal. This is indetermi ashleigh but may also represent a surgical clip. ACT 112: Negative or not required by law. Electronically signed by: cSar Porter M.D. 06/03/2021 6:04 PM
--- NOTE | 2021-06-03 18:49 | Surgery Consultation ---
Date of Consultation June 03, 2021 Assessment & Plan (1) Foreign body of abdominal wall: pt is a 30 year-old is S/P remove FB in stomach, KUB finding a stapler line at RLQ area, pt denies abdominal pain, IMP: a metal stapler at RLQ area, plan, no surgery indication now, no indication to remove the metal stapler , clear diet then advance diet, december D/C tomorrow, pt understood, I answered all questions, sign off today, please call with questions, thanks, Supervising Physician Co-Signing Physician Notes I saw and evaluated the patient. The patient has a history of recurrent foreign body ingestion last which was swallowed in April. He presents today for swallowing a larger object. Endoscopy has been requested for removal. Physical examination No obvious distress No scleral icterus No abdominal tenderness Impression: Patient with recurrent foreign body ingestion. We will plan for upper endoscopy today for foreign body removal. Given the nature of the foreign body there is a higher than average risk of perforation. Recommendations Upper endoscopy for foreign body removal History of Present Illness Reason for Consultation: foreign body on abdomen Requesting Physician: Haley Malik Attending Physician: Cris Ferguson MD History of Present Illness CC: foreign body on abdomen HPI: The patient is a 30-year-old gentleman, current halfway inmate who presents to emergency department for evaluation of foreign body ingestion reports he swallowed a vape pen last night at 10 PM attempting to hurt himself "but not kill himself" as he reports he does this to relieve stress and felt better. He has a history of swallowing foreign bodies and ingestions. He reports he told staff at his halfway facility that he took Tylenol but he reports now that he did not take Tylenol but only said this to ensure he was transported to the emergency department as he was worried they would not pay his report of a pen ingestion any mind. He denies any recent illness, fevers, chills, cough, congestion, GI or symptoms. He reports he did get vaccinated for COVID-19 with the J&J vaccine. I ( Yovany Herrera MD ) got a call for consult foreign body on abdomen, 1 cm metallic density within the left lower quadrant which is also extraluminal. This is indeterminate but may also represent a surgical clip. I reviewed pt's H/P, labs, KUB, pt is S/P remove FB in stomach, pt denies abdominal pain, no nausea, no vomiting, no fever, ROS: See above HPI for pertinent positives & negatives. A total of 10 systems reviewed and were otherwise negative. PAST MEDICAL HISTORY: See Below PAST SURGICAL HISTORY: See Below FAMILY HISTORY: See Below SOCIAL HISTORY: See Below HOME MEDICATIONS: See Below ALLERGIES: See Below VITALS: See Below Allergies Allergy/AdvReac Type Severity Reaction Status Date / Time sertraline [From Zoloft] Allergy Unknown Per record Unverified 06/03/21 09:26 from [facility] Home Medications Medication Instructions Recorded Confirmed Type aripiprazole 5 mg tablet (Abilify) 5 mg PO HS 06/03/21 06/03/21 History diphenhydramine HCl 25 mg capsule 25 mg PO HS 06/03/21 06/03/21 History (Benadryl) lactulose 10 gram/15 mL oral 30 g PO QAM 06/03/21 06/03/21 History solution (Constulose) Patient History Medical History Borderline personality disorder Hypertension Insomnia WPW (Wfzyo-Gwzxkitwj-Mabep syndrome) Surgical History History of partial gastrectomy Family History Other Diabetes Heart disease Stroke Social History Smoking Status: Current every day smoker Tobacco Type: E-cigarettes / Vaping Do You Dip or Chew Tobacco: No; Hx Alcohol Use: Yes Alcohol type: beer Hx Substance Use: Yes Last Used Substance Other:: 2018 Preferred Language: Greenlandic Communication Ability: Effective Workers' Compensation Mediator Required: No Beliefs That Will Affect Care: None Current Living Situation: Other Current Living Situation Comment: [facility] Feels Safe at Home: Yes Assistive Devices: None Review of Systems Constitutional: as per Subjective / HPI Eyes: as per Subjective / HPI Respiratory: as per Subjective / HPI Cardiovascular: Additional Comments: HTN Gastrointestinal: partial gastrectomy Musculoskeletal: as per Subjective / HPI Neurologic: as per Subjective / HPI Psychiatric: personality disorder Endocrine: as per Subjective / HPI Hematologic / Lymphatic: WPW Physical Exam Constitutional: WD/WN, vitals as above Eyes: PERRL, conjunctivae normal, anicteric sclerae Neck: trachea midline, no thyromegaly Respiratory: normal respiratory effort, lungs clear to auscultation Cardiovascular: RRR, no murmur, no edema Gastrointestinal (Abdomen): normal bowel sounds, soft, nontender, no hepatosplenomegaly soft, ND, NT, BS +, Neurologic: patellar DTR's 2+ bilat, sensation intact Psychiatric: A+Ox3, euthymic affect Results & Data ([facility]) Vital Signs (Past 12 Hours) Vital Signs Temp Pulse Pulse Pulse Resp BP BP 06/03/21 18:02 72 06/03/21 15:45 62 20 109/67 06/03/21 15:30 62 19 116/70 06/03/21 15:15 36.3 C L 72 19 131/85 06/03/21 15:05 63 15 116/72 06/03/21 14:55 58 L 14 124/76 06/03/21 14:45 63 16 117/70 06/03/21 14:39 36.3 C L 66 12 120/72 06/03/21 12:48 36.9 C 63 100 H 139/72 06/03/21 11:32 72 18 122/86 06/03/21 09:48 75 16 128/76 06/03/21 08:01 36.3 C L 77 18 138/93 Pulse Ox 06/03/21 18:02 06/03/21 15:45 97 06/03/21 15:30 99 06/03/21 15:15 99 06/03/21 15:05 100 06/03/21 14:55 100 06/03/21 14:45 100 06/03/21 14:39 100 06/03/21 12:48 100 06/03/21 11:32 92 06/03/21 09:48 95 06/03/21 08:01 94 Diagnostic Findings XR chest 1V portable, XR KUB/Abdomen 1 view HISTORY: 30 years-old Male swallowed e-cigarette foreign body ingestion COMPARISON: KUB 05/13/2021 chest radiograph 09/04/2014 TECHNIQUE: AP view the chest with KUB radiograph FINDINGS: CHEST: Cardiomediastinal and hilar silhouettes are within normal limits. No pneumothorax, pleural effusion, airspace consolidation or overt pulmonary edema. No opaque foreign body. No acute fracture. KUB: There are 4 metallic density cee projecting over the abdominal left upper quadrant with one staple within the abdominal right lower quadrant. A button projects over the abdominal right upper quadrant. There is a linear 7.8 cm metallic density structure projecting over the midabdomen with electronic wires. Moderate fecal retention. No pneumatosis or pneumoperitoneum. Nonobstructive bowel gas pattern. No urolith or acute fracture. IMPRESSION: 1. No acute processes of the chest. 2. 7.8 cm metallic density foreign body likely correlating with the patient's reported ingested electronic cigarette projects over the midabdomen. 3. Additional metallic density foci of the abdominal left upper quadrant and right lower pelvis suggestive of ingested cee. 4. A button projects over the right upper quadrant of the abdomen which may be external to the patient. ACT 112: Negative or not required by law. The above report was generated using voice recognition software. It may contain grammatical, syntax or spelling errors. CT abdomen wo con CLINICAL HISTORY: foreign body ingestion ( cee) COMPARISON STUDY: KUB June 13, 2021. TECHNIQUE: Axial images of the abdomen were obtained without IV contrast. Automated exposure control was utilized for the study. A dose lowering technique was utilized adhering to the principles of ALARA. FINDINGS: Lung bases are unremarkable. No pneumatosis, free air or portal venous gas within the abdomen is noted. Please note that the pelvis was not imaged on this exam. The metallic density within the abdomen on KUB performed earlier toda y is not visualized. Note is made of surgical clips and suture material along the anterior aspect of the gastric body. These are postsurgical. An adjacent metallic density within the upper abdomen is also extraluminal. Note is made of a 1 cm metallic density within the left lower quadrant. This is extraluminal. There is a small 4 mm metallic density within the descending colon. No additional intraluminal metallic densities are identified. Water attenuation right renal lesion, measuring 1.4 cm is suboptimally assessed on this unenhanced exam. 20 cm water attenuation left renal lesion is also suboptimally assessed on this exam. However, these probably reflect cysts. Unenhanced images of the liver, spleen, adrenal glands and pancreas are unremarkable. Is no evidence for a bowel obstruction. No acute fracture or suspicious lesion is identified within the visualized skeletal structures. IMPRESSION: 1. Nonvisualization of the 7.8 cm metallic density on KUB performed earlier today. 2. Small 4 mm metallic density within the descending colon. This could reflect a tiny ingested foreign body. No additional intraluminal foreign bodies within the abdomen. Please note that the pelvis was not included on this exam. 3. Surgical staple line and surgical clips anterior to the body of the stomach which are postsurgical. 4. 1 cm metallic density within the left lower quadrant which is also extraluminal. This is indeterminate but may also represent a surgical clip.
[2021-06-03] MEDS: ACETAMINOPHEN 325 MG TAB PO PRN ×2 (20:36→23:29)
[2021-06-03] MEDS ORDERED: diphenhydrAMINE Capsule 25 MG CAP PO SCH (21:00)
[2021-06-03] MEDS ORDERED: ARIPiprazole 5 MG TAB PO SCH (21:00)
[2021-06-04 08:20] LABS: Basophils # (auto) 0.01 K/uL (0-0.2); Basophils % (auto) 0.2 %; Eosinophils # (auto) 0.18 K/uL (0-0.5); Eosinophils % (auto) 3.9 %; Hematocrit (blood only) 39.4 % (42-52); Hemoglobin 13.7 g/dL (14.0-18.0); Lymphocytes # (auto) 1.76 K/uL (1.2-3.4); Lymphocytes % (auto) 38.2 %; Mean Corpuscular Hemoglobin 30.4 pg (25-34); Mean Corpuscular Hgb Conc 34.8 g/dL (32-36); Mean Corpuscular Volume 87.6 fL (80-100); Mean Platelet Volume 10.2 fL (7.4-10.4); Monocytes # (auto) 0.31 K/uL (0.11-0.59); Monocytes % (auto) 6.7 %; Neutrophils # (auto) 2.35 K/uL (1.4-6.5); Platelet Count 215 K/uL (130-400); RDW Coefficient of Variation 13.7 % (11.5-14.5); RDW Standard Deviation 43.6 fL (36.4-46.3); White Blood Count 4.61 K/uL (4.8-10.8)
[2021-06-04 08:47] LABS: Alanine Aminotransferase 23 U/L (12-78); Aspartate Aminotransferase 20 U/L (15-37); BUN Creatinine Ratio 4.9 (10-20); Blood Urea Nitrogen 4 mg/dl (7-18); Calcium 9.4 mg/dl (8.5-10.1); Carbon Dioxide 25 mmol/L (21-32); Chloride 107 mmol/L (98-107); Est GFR (Non-African American) 126.8 ml/min; Glucose 88 mg/dl (70-99); Potassium 3.9 mmol/L (3.5-5.1); Sodium 137 mmol/L (136-145)
[2021-06-04 08:50] LABS: Albumin Globulin Ratio 1.2 (0.9-2); Alkaline Phosphatase 114 U/L (45-117); Bilirubin,Total 0.6 mg/dl (0.2-1); Globulin 3.4 gm/dl (2.5-4.0); Total Protein 7.4 gm/dl (6.4-8.2)
[2021-06-04] MEDS ORDERED: POLYETHYLENE (MIRALAX) 17 GM PACK PO SCH (09:00)
[2021-06-04] MEDS ORDERED: LACTULOSE SYRUP 30 GM/45 ML UDP PO SCH (09:00)
[2021-06-04] MEDS ORDERED: bisacodyL 5 MG TABEC PO SCH (09:00)
--- NOTE | 2021-06-04 14:11 | Discharge Summary ---
Date of Service June 04, 2021 Admission HPI Per Admitting Provider This is a 30 yo M with PMhx of HTN, history of WPW, mood disorder, history of partial gastrectomy who presents after ingestion of foreign body. He has previously been admitted for swallowing 2 batteries approximately 1 month ago where he required removal via EGD. Today, per review with GI and radiology, he has swallowed an e-cigarette. Pt admits to doing this around 10am last evening after a stressful situation. He denies wanting to talk about what triggers him to do these sort of things or why he swallow items. ER provider relayed that the patient told the intermediate that he took may tylenol to get out of the intermediate and come to the hospital, however did not actually take any tylenol. He denies abdominal pain, nausea, vomiting. Last BM was this morning and was normal. Pt is currently incarcerated [facility], and in October 2021 will have served max sentence of 10 years. He denies knowing what he'll do upon getting out. Pt is from [place], and thinks he'll return to this area. He states " I'd rather be homeless than live with my mom and that situation" and when asked about getting his own apartment he states his brother may be able to help him out with this. He anticipates getting into some sort of legal trouble to get himself put back in fdc because he "knows the system" and feels like he understands it. He has recently started exercising, because otherwise his str ess relief includes "beating and punching somebody until he gets put back in my cell", and when asked about punching a mattress or pillow instead, says it doesn't stand up well enough. He makes several other comments about beating, killing or taking care of other inmates who have done things to hurt women and children. Pt denies every seeing a therapist or psychiatrist. 2 male guards are present in the room during my visit. Admission Exam Per Admitting Provider General: awake, alert, no apparent distress Head: Normocephalic, atraumatic ENT: PERRL, EOMI, no pharyngeal exudate, mucous membranes moist Chest: Clear to auscultation, on room air, no adventitious breath sounds Cardiac: Regular rate and rhythm, no murmur, no JVD, normal peripheral pulses, good capillary refill Abdominal: NABS x 4 quadrants, soft, nondistended, nontender to palpation, no rebound or guarding Extremities: Normal inspection, no peripheral edema or erythema, calfs nontender to palpation Psych: Normal mood and affect Neuro: AAO x 3, strength intact bilaterally and rated 5/5, no motor deficits, speech is clear, no peripheral sensory deficits Principal Diagnosis Swallowed foreign body: WPW (Jsmqi-Zxqmazesc-Egaph syndrome): Hypertension: Borderline personality disorder: History of partial gastrectomy: Discharge Exam General- No acute distress Head- atraumatic Eyes- PERRL, EOMI, ENT- oropharynx clear Neck- supple, no JVD Lungs- clear to auscultation Heart- regular rhythm; no murmur Abdomen- normal bowel sounds, soft, nontender Extremities- no calf tenderness Neuro- alert, oriented x 3; PERRL, EOMI; no facial palsy; no dysarthria Skin- warm & dry Discharge Data Allergies Allergy/AdvReac Type Severity Reaction Status Date / Time sertraline [From Zoloft] Allergy Unknown Per record Unverified 06/03/21 09:26 from [facility] Consultations 06/03/21 10:53 ED Decision to Admit Stat 06/03/21 14:12 Consult General Surgery Routine Procedures Performed Operation Date: 06/03/21 08:20 Actual Procedures p Esophagogastroduodenoscopy - Haley Nair DO Ordered Studies 06/03/21 14:09 CT abdomen wo con Routine CT abdomen wo con CLINICAL HISTORY: foreign body ingestion ( cee) COMPARISON STUDY: KUB June 13, 2021. TECHNIQUE: Axial images of the abdomen were obtained without IV contrast. Automated exposure control was utilized for the study. A dose lowering technique was utilized adhering to the principles of ALARA. FINDINGS: Lung bases are unremarkable. No pneumatosis, free air or portal venous gas within the abdomen is noted. Please note that the pelvis was not imaged on this exam. The metallic density within the abdomen on KUB performed earlier today is not visualized. Note is made of surgical clips and suture material along the anterior aspect of the gastric body. These are postsurgical. An adjacent metallic density within the upper abdomen is also extraluminal. Note is made of a 1 cm metallic density within the left lower quadrant. This is extraluminal. There is a small 4 mm metallic density within the descending colon. No additional intraluminal metallic densities are identified. Water attenuation right renal lesion, measuring 1.4 cm is suboptimally assessed on this unenhanced exam. 20 cm water attenuation left renal lesion is also suboptimally assessed on this exam. However, these probably reflect cysts. Unenhanced images of the liver, spleen, adrenal glands and pancreas are unremarkable. Is no evidence for a bowel obstruction. No acute fracture or suspicious lesion is identified within the visualized skeletal structures. IMPRESSION: 1. Nonvisualization of the 7.8 cm metallic density on KUB performed earlier today. 2. Small 4 mm metallic density within the descending colon. This could reflect a tiny ingested foreign body. No additional intraluminal foreign bodies within the abdomen. Please note that the pelvis was not included on this exam. 3. Surgical staple line and surgical clips anterior to the body of the stomach which are postsurgical. 4. 1 cm metallic density within the left lower quadrant which is also extraluminal. This is indeterminate but may also represent a surgical clip. ACT 112: Negative or not required by law. Electronically signed by: Scar Porter M.D. 06/03/2021 6:04 PM Dictated: 06/03/211753Transcribed: 06/03/211755 XR chest 1V portable, XR KUB/Abdomen 1 view HISTORY: 30 years-old Male swallowed e-cigarette foreign body ingestion COMPARISON: KUB 05/13/2021 chest radiograph 09/04/2014 TECHNIQUE: AP view the chest with KUB radiograph FINDINGS: CHEST: Cardiomediastinal and hilar silhouettes are within normal limits. No pneumothorax, pleural effusion, airspace consolidation or overt pulmonary edema. No opaque foreign body. No acute fracture. KUB: There are 4 metallic density cee projecting over the abdominal left upper quadrant with one staple within the abdominal right lower quadrant. A button projects over the abdominal right upper quadrant. There is a linear 7.8 cm metallic density structure projecting over the midabdomen with electronic wires. Moderate fecal retention. No pneumatosis or pneumoperitoneum. Nonobstructive bowel gas pattern. No urolith or acute fracture. IMPRESSION: 1. No acute processes of the chest. 2. 7.8 cm metallic density foreign body likely correlating with the patient's reported ingested electronic cigarette projects over the midabdomen. 3. Additional metallic density foci of the abdominal left upper quadrant and right lower pelvis suggestive of ingested cee. 4. A button projects over the right upper quadrant of the abdomen which may be external to the patient. ACT 112: Negative or not required by law. The above report was generated using voice recognition software. It may contain grammatical, syntax or spelling errors. Electronically signed by: Britton Will M.D. 06/03/2021 9:10 AM Dictated: 06/03/21905Transcribed: 06/03/21905 XR chest 1V portable, XR KUB/Abdomen 1 view HISTORY: 30 years-old Male swallowed e-cigarette foreign body ingestion COMPARISON: KUB 05/13/2021 chest radiograph 09/04/2014 TECHNIQUE: AP view the chest with KUB radiograph FINDINGS: CHEST: Cardiomediastinal and hilar silhouettes are within normal limits. No pneumothorax, pleural effusion, airspace consolidation or overt pulmonary edema. No opaque foreign body. No acute fracture. KUB: There are 4 metallic density cee projecting over the abdominal left upper quadrant with one staple within the abdominal right lower quadrant. A button projects over the abdominal right upper quadrant. There is a linear 7.8 cm metallic density structure projecting over the midabdomen with electronic wires. Moderate fecal retention. No pneumatosis or pneumoperitoneum. Nonobstructive bowel gas pattern. No urolith or acute fracture. IMPRESSION: 1. No acute processes of the chest. 2. 7.8 cm metallic density foreign body likely correlating with the patient's reported ingested electronic cigarette projects over the midabdomen. 3. Additional metallic density foci of the abdominal left upper quadrant and right lower pelvis suggestive of ingested cee. 4. A button projects over the right upper quadrant of the abdomen which may be external to the patient. ACT 112: Negative or not required by law. The above report was generated using voice recognition software. It may contain grammatical, syntax or spelling errors. Electronically signed by: Britton Will M.D. 06/03/2021 9:10 AM Dictated: 06/03/21905Transcribed: 06/03/21905 Hospital Course (1) Swallowed foreign body: Present on admission after swallowing an E-cig KUB showed 7.8 cm metallic density foreign body likely correlating with the patient's reported ingested electronic cigarette projects over the midabdomen. GI consult for EGD and removal of foreign body S/P successful removal of the ingested e-cigarette GI recommended to get a CT abd/pelvis that showed small 4 mm metallic density within the descending colon. No additional intraluminal foreign bodies within the abdomen. 1 cm metallic density within the left lower quadrant which is also extraluminal. This is indeterminate but may also represent a surgical clip. Surgery was consulted and no surgical intervention requires Tolerated diet Will need to monitor for sign of peritonitis Ok to return to the intermediate for serial abdominal x-rays to be performed there, if any perforation to seek medical attention Staff needs to avoid patient to get access to any small object since he will swallow them Pt was advised not to swallow foreign objects of any kind as it can cause severe harm, injury or . OK from surgery and GI standpoint to discharge home (2) WPW (Qwdrh-Fuhdvrplj-Vnrfc syndrome): - Hx of such, no records regarding this, has not followed with cardiology since 2018 and does not routinely see them. -Recently started exercising again - encouraged this as good stress relieving therapy - - should be followed by cardiology as outpatient - scheduled for dc from intermediate in October 2021. (3) Hypertension: - Not on oral medications, monitor, BP stable currently - Likely stress induced (4) Borderline personality disorder: - Consider psych eval - Continue abilify 5 mg daily (5) History of partial gastrectomy: - Noted, chronic DVT ppx: teds CODE: FULL Dispo: From [facility] system Total Time Total Time Spent Total Time Spent (In Minutes): 35 minutes Discharge Plan Discharge Items [facility]position[facility] Reason For Visit: SWALLOWED AN E-CIG Discharge Diagnosis: Swallowed foreign body: WPW (Shpne-Xerdhzxge-Qtwvq syndrome): Hypertension: Borderline personality disorder: History of partial gastrectomy: Activity: Resume your previous activity Non-emergency contact: Primary Care Provider Call non-emergency contact if: you have any medication questions, your symptoms worsen, you have a fever and your temperature is above 101 Follow-up/Referrals: Ronald STARR [Primary Care Provider] - Diet: Low Sodium (2gm) Addtl Attending Provider Instructions: Follow up with your primary care provider at [facility] Staff needs to avoid patient to get access to any small object since he will swallow them It is recommended you do not swallow foreign objects of any kind as it can cause severe harm, injury or . Please monitor for sign of peritonitis at the intermediate Follow up with serial abdominal x-rays to be performed there. Please continue current medication regimen. Pending Studies at Discharge: No Stand-Alone Forms: My [facility] Skilled Items Patient informed of condition?: Yes Discharge Level of Care: Other Communicable Disease: Yes Discharge Prognosis: Stable Lines: None Urinary Catheter: No Medications and DC Order Prescriptions: Continued diphenhydramine HCl [Benadryl] 25 mg Capsule 25 mg PO HS RF: 0 aripiprazole [Abilify] 5 mg Tablet 5 mg PO HS RF: 0 lactulose [Constulose] 10 gram/15 mL Solution 30 g PO QAM RF: 0 Discharge Orders: Discharge Order (Routine); Ordered 06/04/21 Ordered By: Cris Ferguson Admission Data Admit Date/Time: 06/03/21 11:03 Attending Provider: Cris Ferguson Admit Provider: Cris Ferguson Primary Care Provider: Ronald STARR Other Providers: Haley Nair ; Cris Ferguson ; Yovany Herrera Other Interventions: Discharge Summary Assessment (RN) Last Done: 06/04/21 13:39
== END 2021-06-04 16:15 | DRG 395 ==
LOC: ED 07:48 → INTOOBSV 11:03 → ASU 12:35 → 2N 12:36

== ENCOUNTER 2021-09-27 09:59 | Inpatient (IN) ==
--- NOTE | 2021-09-27 10:23 | Emergency Department Note ---
History of Present Illness General Chief complaint: Foreign Body Stated complaint: SWALLOWED A SPORK Time Seen by Provider: 09/27/21 10:14 History of Present Illness Maximum Pain Intensity: 7 This is a 30-year-old male that presents to the emergency department via patrol community service officer escort x2 with complaints of "swallowed a Spork". The patient states that August 29 he swallowed multiple foreign bodies. He states that he swallowed flex pens, toothbrush, 2 Sporks on August 29. He states that he was able to pass/vomit the majority of this however notes that once pork is still unaccounted for and since Sunday night he has right lower quadrant abdominal pain. On Sunday he also had vomiting which produced one of the de guzman and pens. His abdominal pain has been constant since Sunday. At rest pain 03/05 but with movements it increases. No vomiting blood. No blood in the stool. No bowel movement since Sunday. Patient notes that this is not necessarily unusual as sometimes he will go a week without having a bowel movement. 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 Surgical History History of cardiac radiofrequency ablation (RFA) 2008 History of partial gastrectomy Family History Other Diabetes Heart disease Stroke Social History (Reviewed 09/27/21 @ 15:19 by ARLETTE Morrow Smoking Status: Current every day smoker Tobacco Type: E-cigarettes / Vaping Hx Alcohol Use: Yes Alcohol type: beer Hx Substance Use: Yes Last Used Substance Other:: 2018 Preferred Language: French Communication Ability: Effective Cloth Printer Required: No Beliefs That Will Affect Care: None Current Living Situation: Other Current Living Situation Comment: [facility] Feels Safe at Home: Yes Assistive Devices: None Review of Systems A total of 10 systems reviewed and were otherwise negative Physical Exam Vital Signs Vital Signs - 24 hr 09/27/21 10:09 09/27/21 11:03 09/27/21 11:30 Temperature 37.0 C Temperature Source Temporal Artery Scan Pulse Rate 80 87 95 H Pulse Rate from SpO2 Sensor 89 92 H Respiratory Rate 20 15 19 Respiratory Effort / Characteristics Non-Labored Respiratory Depth Normal Blood Pressure 182/96 H 115/79 Blood Pressure Mean 124 91 Pulse Oximetry 97 99 98 Oxygen Delivery Method Room Air Sepsis Recent Fever Within 48 Hours No Sepsis New/Unexplained Change in Mental Status N/A Sepsis Action Taken by Nursing No Action Required 09/27/21 12:00 09/27/21 12:01 09/27/21 12:30 Temperature Temperature Source Pulse Rate 89 87 84 Pulse Rate from SpO2 Sensor 89 79 89 Respiratory Rate 19 15 21 Respiratory Effort / Characteristics Respiratory Depth Blood Pressure 138/84 107/82 Blood Pressure Mean 102 90 Pulse Oximetry 93 99 Oxygen Delivery Method Sepsis Recent Fever Within 48 Hours Sepsis New/Unexplained Change in Mental Status Sepsis Action Taken by Nursing 09/27/21 13:00 09/27/21 13:30 09/27/21 14:00 Temperature Temperature Source Pulse Rate 87 89 86 Pulse Rate from SpO2 Sensor 87 100 H 85 Respiratory Rate 19 19 21 Respiratory Effort / Characteristics Respiratory Depth Blood Pressure 118/81 142/86 H Blood Pressure Mean 93 104 Pulse Oximetry 100 92 99 Oxygen Delivery Method Sepsis Recent Fever Within 48 Hours Sepsis New/Unexplained Change in Mental Status Sepsis Action Taken by Nursing VITAL SIGNS - Vital signs and nursing notes were reviewed. Stable and afebrile. GENERAL -30-year-old male appearing his stated age who is in no acute distress. Communicates well with provider and answers questions appropriately. SKIN - Without rashes. No meningeal or petechial rash. HEAD - NC/AT. EYES - PERRL with EOMI bilaterally. Sclera anicteric. EARS - No deformities of external structures noted on gross examination bilaterally. MOUTH/OROPHARYNX - Without perioral cyanosis. NECK - Neck with FROM. No nuchal rigidity. LUNGS - Chest wall symmetric without accessory muscle use, intercostals retractions, or central cyanosis. Normal vesicular breath sounds CTA B/L. No wheezes, rales, or rhonchi appreciated. CARDIAC - RRR with S1/S2. No murmur, rubs, or gallops appreciated. ABDOMEN - Abdominal contour normal without pulsations or visible masses. BS normoactive all four quadrants. RLQ abd TTP noted. No guarding or rigidity. No palpable masses, hepatosplenomegaly, or ascites noted. EXTREMITIES - No clubbing or peripheral cyanosis. +5/5 strength noted in UE/LE bilaterally. NEUROLOGIC - Cranial nerves II through XII grossly intact. PSYCH - A&O, and cooperates fully with examiner. Pt is very pleasant and interacts well with examiner. Course Administered Medications Discontinued Medications Sodium Chloride (Nss 1000ml) 1,000 mls @ 125 mls/hr IV .Q8H [facility] Stop: 10/27/21 14:59 Last Admin: 09/27/21 15:01 Dose: 125 mls/hr Documented by: [id number] Morphine Sulfate (Morphine Sulfate 4 Mg/Ml 1 Ml Carp\\Vial) 4 mg IV NOW STA Stop: 09/27/21 16:41 Last Admin: 09/27/21 17:11 Dose: 4 mg Documented by: [id number] Ondansetron HCl (Ondansetron Inj 2 Mg/Ml 2 Ml Vial) 4 mg IV NOW STA Stop: 09/27/21 16:41 Last Admin: 09/27/21 17:11 Dose: 4 mg Documented by: [id number] Polyethylene Glycol/Electrolytes (Lavage Solution 4000ml) 8 dose PO TODAY@1400 [facility] Stop: 09/27/21 18:00 Last Admin: 09/27/21 14:20 Dose: 8 dose Documented by: [id number] Medical Decision Making Laboratory Data Result diagrams: 09/27/21 10:50 09/27/21 10:50 Lab Results 09/27/21 09/27/21 09/27/21 Range/Units 10:50 10:50 10:50 WBC 7.34 (4.8-10.8) K/uL RBC 4.14 L (4.7-6.1) M/uL Hgb 13.0 L (14.0-18.0) g/dL Hct 36.8 L (42-52) % MCV 88.9 (80-100) fL MCH 31.4 (25-34) pg MCHC 35.3 (32-36) g/dL RDW Std Deviation 43.4 (36.4-46.3) fL RDW Coeff of Antonio 13.3 (11.5-14.5) % Plt Count 196 (130-400) K/uL MPV 9.9 (7.4-10.4) fL Immature Gran % (Auto) 0.1 % Neut % (Auto) 66.4 % Lymph % (Auto) 20.2 % Mcclain % (Auto) 10.9 % Eos % (Auto) 2.3 % Baso % (Auto) 0.1 % Neut # (Auto) 4.87 (1.4-6.5) K/uL Lymph # (Auto) 1.48 (1.2-3.4) K/uL Mcclain # (Auto) 0.80 H (0.11-0.59) K/uL Eos # (Auto) 0.17 (0-0.5) K/uL Baso # (Auto) 0.01 (0-0.2) K/uL Immature Gran # (Auto) 0.01 (0.00-0.02) K/uL Sodium 132 L (136-145) mmol/L Potassium 3.6 (3.5-5.1) mmol/L Chloride 97 L (98-107) mmol/L Carbon Dioxide 29 (21-32) mmol/L Anion Gap 6 (3-11) BUN 6 (6-23) mg/dl Creatinine 0.64 (0.6-1.4) mg/dl Est Cr Clr Drug Dosing 186.9 ml/min Est GFR ( Amer) > 150.0 ml/min Est GFR (Non-Af Amer) 132.3 ml/min BUN/Creatinine Ratio 9.4 L (10-20) Glucose 89 (70-99(Fasting)) mg/dl Calcium 9.4 (8.5-10.1) mg/dl Total Bilirubin 1.1 H (0.2-1.0) mg/dl AST 23 (13-39) U/L ALT 13 (7-52) U/L Alkaline Phosphatase 71 (34-104) U/L Total Protein 7.1 (6.0-8.3) gm/dl Albumin 4.5 (3.4-5.0) gm/dl Globulin 2.6 (2.5-4.0) gm/dl Albumin/Globulin Ratio 1.7 (0.9-2) Urine Color Yellow Urine Appearance Clear (Clear) Urine pH 7.0 (4.5-7.5) Ur Specific Brokaw 1.004 (1.000-1.030) Urine Protein Negative (Negative) Urine Glucose (UA) Negative (Negative) Urine Ketones Negative (Negative) Urine Blood Negative (Negative) Urine Nitrite Negative (Negative) Urine Bilirubin Negative (Negative) Urine Urobilinogen Negative (Negative) Ur Leukocyte Esterase Negative (Negative) SARS-CoV-2, RNA, NAAT (NEGATIVE) 09/27/21 Range/Units 10:50 WBC (4.8-10.8) K/uL RBC (4.7-6.1) M/uL Hgb (14.0-18.0) g/dL Hct (42-52) % MCV (80-100) fL MCH (25-34) pg MCHC (32-36) g/dL RDW Std Deviation (36.4-46.3) fL RDW Coeff of Antonio (11.5-14.5) % Plt Count (130-400) K/uL MPV (7.4-10.4) fL Immature Gran % (Auto) % Neut % (Auto) % Lymph % (Auto) % Mcclain % (Auto) % Eos % (Auto) % Baso % (Auto) % Neut # (Auto) (1.4-6.5) K/uL Lymph # (Auto) (1.2-3.4) K/uL Mcclain # (Auto) (0.11-0.59) K/uL Eos # (Auto) (0-0.5) K/uL Baso # (Auto) (0-0.2) K/uL Immature Gran # (Auto) (0.00-0.02) K/uL Sodium (136-145) mmol/L Potassium (3.5-5.1) mmol/L Chloride (98-107) mmol/L Carbon Dioxide (21-32) mmol/L Anion Gap (3-11) BUN (6-23) mg/dl Creatinine (0.6-1.4) mg/dl Est Cr Clr Drug Dosing ml/min Est GFR ( Amer) ml/min Est GFR (Non-Af Amer) ml/min BUN/Creatinine Ratio (10-20) Glucose (70-99(Fasting)) mg/dl Calcium (8.5-10.1) mg/dl Total Bilirubin (0.2-1.0) mg/dl AST (13-39) U/L ALT (7-52) U/L Alkaline Phosphatase (34-104) U/L Total Protein (6.0-8.3) gm/dl Albumin (3.4-5.0) gm/dl Globulin (2.5-4.0) gm/dl Albumin/Globulin Ratio (0.9-2) Urine Color Urine Appearance (Clear) Urine pH (4.5-7.5) Ur Specific Brok[place] (1.000-1.030) Urine Protein (Negative) Urine Glucose (UA) (Negative) Urine Ketones (Negative) Urine Blood (Negative) Urine Nitrite (Negative) Urine Bilirubin (Negative) Urine Urobilinogen (Negative) Ur Leukocyte Esterase (Negative) SARS-CoV-2, RNA, NAAT NEGATIVE (NEGATIVE) Imaging Data Radiologist's Impression: Abdomen/Pelvis CT 09/27/21 10:21 CT abd pelvis IV con only CLINICAL HISTORY: RLQ abd pain, ingested FB COMPARISON STUDY: 06/03/2021 CT DOSE: 378.95 mGy.cm TECHNIQUE: Standard CT of the Abdomen and Pelvis was performed with IV contrast. A dose lowering technique was utilized adhering to the principles of ALARA. Contrast Volume: Optiray 320, 95 ml. The patient did not receive oral contrast. FINDINGS: Lung base: The lung bases are clear. Abdominal cavity: There is no evidence for abdominal mass, adenopathy or ascites. Liver: There is homogeneous attenuation of the liver parenchyma. There is no evidence for enhancing mass lesion. Spleen: There is homogeneous attenuation of the splenic parenchyma. There is no enhancing mass lesion. Pancreas: There is homogeneous attenuation of the pancreatic parenchyma. There is no evidence for mass lesion or peripancreatic fluid collection. Gall Bladder: The gallbladder is well distended with no evidence for intraluminal calculi, wall thickening or pericholecystic edema. Adrenal glands: The adrenal glands are normal in size and attenuation. There is no evidence for enhancing mass lesion. Kidneys: There is homogeneous attenuation of the renal parenchyma bilaterally. There is no evidence for renal calculus or hydronephrosis. There is no evidence for enhancing mass. 2 sharply defined right renal cysts are present. Bowel: Postsurgical changes are present within the stomach. There is a tubular, coiled radiopaque foreign body present within the cecum and ascending colon. T here is no associated obstruction. The bowel loops are otherwise normally placed within the abdomen and pelvis without evidence for dilatation or obstruction. There is no evidence for mass lesion. There are no inflammatory changes present. There is no evidence for free air. The appendix is not visualized. Bladder: The bladder is distended with no evidence for focal mass, calculus or diverticulum. : There is no evidence for pelvic mass or adenopathy. There is no evidence for pelvic ascites. Vasculature: There is no evidence for aneurysmal dilatation of the abdominal aorta. Osseous structures: There is no acute osseous pathology. IMPRESSION: 1. Tubular, partially coiled radiopaque foreign body within the cecum and ascending colon with no evidence for bowel obstruction or perforation. 2. Otherwise, no acute intra-abdominal or pelvic abnormality. ACT 112: Negative or not required by law. Electronically signed by: Osmar Patiño M.D. 09/27/2021 12:55 PM [facility] Narrative Patient was seen and evaluated as above in room A10. Review was performed of nursing notes and vital signs. I did review pertinent previous visits and patient history. After obtaining a thorough history and physical examination the above work up was performed. Patient presents to us today accompanied by 2 correctional officers for evaluation of ingested foreign bodies. Patient notes that he ingested the foreign bodies on August 29. He was doing well up until this past Sunday when he began vomiting x4. He notes that he was able to pull a support from the back of his mouth and then began with right lower quadrant abdominal pain. No blood in the vomit or stool. On examination he does have some minor right lower quadrant abdominal tenderness. No guarding or rigidity. Options of care were discussed with the patient. IV access was established. Labs were drawn. He was given maintenance fluids intravenously. No leukocytosis. Mild anemia. Mild hyponatremia at 132. No evidence of kidney or liver failure. T bili 1.1. Urinalysis does not suggest infection. Covid test negative. CT scan was obtained of the abdomen pelvis to further evaluate the patient's discomfort. They do comment upon a radiopaque foreign body within the cecum and ascending colon. No bowel obstruction. No perforation. I reviewed this with the patient. Patient initially wanted to decline treatment as he was hungry and did not want to miss dinner back at the present. I informed him that we would be happy to give him food here as soon as it was safe to do so. Patient was then educated upon benefits and risks. At this time I do believe that further evaluation and management is warranted. Patient in agreement to stay. I reevaluated the patient several times to see if there is anything further that he needed or wanted as we were waiting on test results and GI/Gen surgery decisions and he stated no. I did initially speak with general surgery, Shant Turner PA-C and this was felt to be more of a GI case. I then spoke to ANNA Dorsey with GI. With the patient's level of discomfort and foreign body at the location of discomfort I do believe that further evaluation and management inpatient setting is warranted. Patient will undergo colonoscopy prep overnight and then colonoscopy tomorrow. Patient happy with plan of care. Case then discussed with the hospitalist, Macrina Rosado PA-C. Please refer to further documentation regarding his stay. GCS: 15 In the evaluation and treatment of this patient the following differential diagnoses were entertained: Bowel obstruction, perforation, infection, colitis, ingested foreign body, among others. Impression & Plan Foreign body ingestion, Abdominal pain, acute, right lower quadrant Discharge Plan Visit Data Chief Complaint: Foreign Body Stated Complaint: SWALLOWED A SPORK ED Provider: Adalid Doyle ED Midlevel Provider: Jovon Anna Discharge Problem: Foreign body ingestion, Abdominal pain, acute, right lower quadrant Patient Disposition: Admitted As Inpatient Condition: Good Discharge Instructions Interventions: ED Discharge Assessment Last Done: 09/27/21 18:15
[2021-09-27 11:04] LABS: Basophils # (auto) 0.01 K/uL (0-0.2); Basophils % (auto) 0.1 %; Eosinophils # (auto) 0.17 K/uL (0-0.5); Eosinophils % (auto) 2.3 %; Hematocrit (blood only) 36.8 % (42-52); Immature Granulocytes # (auto) 0.01 K/uL (0.00-0.02); Immature Granulocytes % (auto) 0.1 %; Lymphocytes # (auto) 1.48 K/uL (1.2-3.4); Lymphocytes % (auto) 20.2 %; Mean Corpuscular Hemoglobin 31.4 pg (25-34); Mean Corpuscular Hgb Conc 35.3 g/dL (32-36); Mean Corpuscular Volume 88.9 fL (80-100); Mean Platelet Volume 9.9 fL (7.4-10.4); Monocytes % (auto) 10.9 %; Neutrophils # (auto) 4.87 K/uL (1.4-6.5); Neutrophils % (auto) 66.4 %; Platelet Count 196 K/uL (130-400); RDW Coefficient of Variation 13.3 % (11.5-14.5); RDW Standard Deviation 43.4 fL (36.4-46.3); Red Blood Count 4.14 M/uL (4.7-6.1); White Blood Count 7.34 K/uL (4.8-10.8)
[2021-09-27 11:19] LABS: Appearance Urine Clear (Clear); Bilirubin Urine Negative (Negative); Blood Urine Negative (Negative); Color Urine Yellow; Glucose Urine UA Negative (Negative); Ketones Urine Negative (Negative); Leukocyte Esterase Urine Negative (Negative); Nitrite Urine Negative (Negative); Protein Urine Negative (Negative); Specific Gravity Urine 1.004 (1.000-1.030); Urobilinogen Urine Negative (Negative)
[2021-09-27 11:30] LABS: Alanine Aminotransferase 13 U/L (7-52); Albumin Globulin Ratio 1.7 (0.9-2); Albumin Level 4.5 gm/dl (3.4-5.0); Alkaline Phosphatase 71 U/L (34-104); Anion Gap 6 (3-11); Aspartate Aminotransferase 23 U/L (13-39); BUN Creatinine Ratio 9.4 (10-20); Bilirubin,Total 1.1 mg/dl (0.2-1.0); Blood Urea Nitrogen 6 mg/dl (6-23); Calcium 9.4 mg/dl (8.5-10.1); Carbon Dioxide 29 mmol/L (21-32); Chloride 97 mmol/L (98-107); Creatinine Clr Calc Pharmacy 186.9 ml/min; Est GFR (African American) > 150.0 ml/min; Est GFR (Non-African American) 132.3 ml/min; Globulin 2.6 gm/dl (2.5-4.0); Glucose 89 mg/dl (70-99(Fasting)); Potassium 3.6 mmol/L (3.5-5.1); Sodium 132 mmol/L (136-145); Total Protein 7.1 gm/dl (6.0-8.3)
--- NOTE | 2021-09-27 12:57 | CT Scan Report ---
CT abd pelvis IV con only CLINICAL HISTORY: RLQ abd pain, ingested FB COMPARISON STUDY: 06/03/2021 CT DOSE: 378.95 mGy.cm TECHNIQUE: Standard CT of the Abdomen and Pelvis was performed with IV contrast. A dose lowering max hnique was utilized adhering to the principles of ALARA. Contrast Volume: Optiray 320, 95 ml. The patient did not receive oral contrast. FINDINGS: Lung base: The lung bases are clear. Abdominal cavity: There is no evidence for abdominal mass, adenopathy or ascites. Liver: There is homogeneous attenuation of the liver parenchyma. There is no evidence for enhancing m ass lesion. Spleen: There is homogeneous attenuation of the splenic parenchyma. There is no enhancing mass lesion . Pancreas: There is homogeneous attenuation of the pancreatic parenchyma. There is no evidence for mas s lesion or peripancreatic fluid collection. Gall Bladder: The gallbladder is well distended with no evidence for intraluminal calculi, wall thick ening or pericholecystic edema. Adrenal glands: The adrenal glands are normal in size and attenuation. There is no evidence for enhan cing mass lesion. Kidneys: There is homogeneous attenuation of the renal parenchyma bilaterally. There is no evidence f or renal calculus or hydronephrosis. There is no evidence for enhancing mass. 2 sharply defined right renal cysts are present. Bowel: Postsurgical changes are present within the stomach. There is a tubular, coiled radiopaque for eign body present within the cecum and ascending colon. There is no associated obstruction. The bowel loops are otherwise normally placed within the abdomen and pelvis without evidence for dilatation or obstruction. There is no evidence for mass lesion. There are no inflammatory changes present. There is no evidence for free air. The appendix is not visualized. Bladder: The bladder is distended with no evidence for focal mass, calculus or diverticulum. : There is no evidence for pelvic mass or adenopathy. There is no evidence for pelvic ascites. Vasculature: There is no evidence for aneurysmal dilatation of the abdominal aorta. Osseous structures: There is no acute osseous pathology. IMPRESSION: 1. Tubular, partially coiled radiopaque foreign body within the cecum and ascending colon with no nikita dence for bowel obstruction or perforation. 2. Otherwise, no acute intra-abdominal or pelvic abnormality. ACT 112: Negative or not required by law. Electronically signed by: Osmar Patiño M.D. 09/27/2021 12:55 PM
--- NOTE | 2021-09-27 13:57 | History & Physical Report ---
Date of Service September 27, 2021 Assessment & Plan (1) Foreign body ingestion: (2) Vapes nicotine containing substance: (3) Hdiqc-Qbtfpeitn-Pwpno syndrome: (4) Borderline personality disorder: Plan: This is a 30yo M from [facility] with PMH of HTN, history of WPW, mood disorder, history of partial gastrectomy who presents afteringestion of foreign bodies. Foreign body ingestion Patient admits to swallowing multiple FBs on August 29 including flex pens, a toothbrush and 2 sporks- has passed or vomited all of these except for [address] A/P with tubular, partially coiled radiopaque FB within the cecum and ascending colon with no evidence for bowel obstruction or perforation. 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 Ferguson. Please see addendum. History of Present Illness Chief Complaint: FB ingestion Primary Care Provider: [facility] This is a 30yo M from [facility] with PMH of HTN, history of WPW, mood disorder, history of partial gastrectomy who presents afteringestion of foreign body. Patient admits to swallowing multiple foreign bodies on August 29 including flex pens, a toothbrush and 2 sporks. Was seen in ED and then discharged back to [facility]. Has passed or vomited all of these except for 1 spork. Is endorsing RLQ pain x 3 days that he describes as a 7/10 constant ache which is exacerbated with movement. Denies persistent N/V. No bowel movement in 3 days. No blood from rectum. Tolerating regular diet. CT abd/pelvis with tubular, partially coiled radiopaque foreign body within the cecum and ascending colon with no evidence for bowel obstruction or perforation. Otherwise, no acute intra-abdominal or pelvic abnormality. States he swallows foreign bodies for the high he feels with self harm. Denies any SI. Allergies Allergy/AdvReac Type Severity Reaction Status Date / Time sertraline [From Zoloft] Allergy Unknown Per record Unverified 09/27/21 12:25 from [facility] Home Medications Medication Instructions Recorded Confirmed Type diphenhydramine HCl 25 mg capsule 50 mg PO HS 06/03/21 09/27/21 History (Benadryl) aripiprazole 10 mg tablet (Abilify) 10 mg PO BID 06/19/21 09/27/21 History sennosides 8.6 mg-docusate sodium 2 tab-cap PO DAILY 09/27/21 09/27/21 History 50 mg tablet (Senokot-S) amoxicillin 875 mg-potassium 1 tab PO BID #10 tab 10/03/21 Rx clavulanate 125 mg tablet Past Med/Surg History Medical History Borderline personality disorder Hypertension Insomnia Swallowed foreign body Vapes nicotine containing 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 Surgical History History of cardiac radiofrequency ablation (RFA) 2009 History of partial gastrectomy Family History Other Diabetes Heart disease Stroke Social History Smoking Status: Current every day smoker Tobacco Type: E-cigarettes / Vaping Hx Alcohol Use: No Hx Substance Use: No Preferred Language: Greenlandic Communication Ability: Effective Mold Closer Required: No Beliefs That Will Affect Care: None Current Living Situation: Other Current Living Situation Comment: [facility] Feels Safe at Home: Yes Assistive Devices: None Review of Systems Review of Systems: At least ten systems reviewed and negative except as noted in the HPI. Physical Exam Physical Exam: General Appearance: WD/WN, vitals as above, NAD, sitting up in bed, pleasant, conversing easily Head: normocephalic, atraumatic Eyes: normal inspection, PERRL, conjunctivae normal, anicteric sclerae ENT: external ear and nose normal, oropharynx normal Neck: normal visual inspection, trachea midline, no thyromegaly Respiratory: normal respiratory effort, lungs clear to auscultation, no wheeze, rales, rhonchi. No accessory muscle use Cardiovascular: regular rate, rhythm, no murmur, normal peripheral pulses, no BLE edema. Vessels: no JVD Chest: normal inspection of chest Abdomen/GI: normal bowel sounds, soft, + RLQ TTP, no hepatosplenomegaly Extremities/Musculoskeletal: no cyanosis or clubbing, extremities motor strength 5/5 Neurologic: PERRL, EOMI, accommodation nl, no face palsy, no dysarthria, CN's II-XI intact bilaterally and moves all extremities Psychiatric: A+Ox3, euthymic affect Skin: no rashes, normal color, warm/dry Results & Data Results & Data ([facility]) Vital Signs (Past 12 Hours) Vital Signs Temp Pulse Resp BP Pulse Ox 09/27/21 12:30 84 21 107/82 99 09/27/21 12:01 87 15 138/84 09/27/21 12:00 89 19 93 09/27/21 11:30 95 H 19 115/79 98 09/27/21 11:03 87 15 99 09/27/21 10:09 37.0 C 80 20 182/96 H 97 Laboratory Results Short CBC 09/27/21 Range/Units 10:50 WBC 7.34 (4.8-10.8) K/uL Hgb 13.0 L (14.0-18.0) g/dL Hct 36.8 L (42-52) % Plt Count 196 (130-400) K/uL BMP 09/27/21 10:50 Sodium 132 L Potassium 3.6 Chloride 97 L Carbon Dioxide 29 BUN 6 Creatinine 0.64 Glucose 89 Calcium 9.4 Liver Function 09/27/21 Range/Units 10:50 Total Bilirubin 1.1 H (0.2-1.0) mg/dl AST 23 (13-39) U/L ALT 13 (7-52) U/L Alkaline Phosphatase 71 (34-104) U/L Albumin 4.5 (3.4-5.0) gm/dl Urine 09/27/21 Range/Units 10:50 Urine Color Yellow Urine Appearance Clear (Clear) Urine pH 7.0 (4.5-7.5) Ur Specific [place] 1.004 (1.000-1.030) Urine Protein Negative (Negative) Urine Glucose (UA) Negative (Negative) Diagnostic Findings Abdomen/Pelvis CT 09/27/21 10:21 CT abd pelvis IV con only CLINICAL HISTORY: RLQ abd pain, ingested FB COMPARISON STUDY: 06/03/2021 CT DOSE: 378.95 mGy.cm TECHNIQUE: Standard CT of the Abdomen and Pelvis was performed with IV contrast. A dose lowering technique was utilized adhering to the principles of ALARA. Contrast Volume: Optiray 320, 95 ml. The patient did not receive oral contrast. FINDINGS: Lung base: The lung bases are clear. Abdominal cavity: There is no evidence for abdominal mass, adenopathy or ascites. Liver: There is homogeneous attenuation of the liver parenchyma. There is no evidence for enhancing mass lesion. Spleen: There is homogeneous attenuation of the splenic parenchyma. There is no enhancing mass lesion. Pancreas: There is homogeneous attenuation of the pancreatic parenchyma. There is no evidence for mass lesion or peripancreatic fluid collection. Gall Bladder: The gallbladder is well distended with no evidence for intraluminal calculi, wall thickening or pericholecystic edema. Adrenal glands: The adrenal glands are normal in size and attenuation. There is no evidence for enhancing mass lesion. Kidneys: There is homogeneous attenuation of the renal parenchyma bilaterally. There is no evidence for renal calculus or hydronephrosis. There is no evidence for enhancing mass. 2 sharply defined right renal cysts are present. Bowel: Postsurgical changes are present within the stomach. There is a tubular, coiled radiopaque foreign body present within the cecum and ascending colon. There is no associated obstruction. The bowel loops are otherwise normally placed within the abdomen and pelvis without evidence for dilatation or obstruction. There is no evidence for mass lesion. There are no inflammatory changes present. There is no evidence for free air. The appendix is not visualized. Bladder: The bladder is distended with no evidence for focal mass, calculus or diverticulum. : There is no evidence for pelvic mass or adenopathy. There is no evidence for pelvic ascites. Vasculature: There is no evidence for aneurysmal dilatation of the abdominal aorta. Osseous structures: There is no acute osseous pathology. IMPRESSION: 1. Tubular, partially coiled radiopaque foreign body within the cecum and ascending colon with no evidence for bowel obstruction or perforation. 2. Otherwise, no acute intra-abdominal or pelvic abnormality. ACT 112: Negative or not required by law. Electronically signed by: Osmar Patiño M.D. 09/27/2021 12:55 PM Supervising Physician Co-Signing Physician Notes Pt was seen and examined. Agreed with Macrina MOCK exam, assessment and plan. 30yo M from [facility] with PMH of HTN, history of WPW, mood disorder, history of partial gastrectomy who presents afteringestion of foreign body. Patient had multiple admission for foreign bodies ingestion in the past including flex pens, a toothbrush and 2 sporks. Presented on admission for RLQ abdominal pain. He was able to passed the foreign bodies, except [address] Abd/pelvis showed Tubular, partially coiled radiopaque foreign body within the cecum and ascending colon with no evidence for bowel obstruction or perforation. the tip of the foreign body presses against the cecum with tenting. Fluid surrounds the foreign body at this site as seen on images 200 to 256 of 481. This fluid has a different attenuation than the fluid and stool within the cecum. The findings are highly suspicious for local walled off perforation with only fluid present. Gastro was consulted and pt was made NPO for possible colonoscopy tomorrow; but radiology placed an addendum for the CT abd/pelvis that was highly suspicious for local walled off perforation with only fluid present. Surgery was consulted. Gastro would let surgery eval the patient before considering to take for colonoscopy in am. Continue monitor closely. MD Phyllis Was seen in ED and then discharged back to [facility]. Has passed or vomited all of these except for 1 spork. Is endorsing RLQ pain x 3 days that he describes as a 7/10 constant ache which is exacerbated with movement. Denies persistent N/V. No bowel movement in 3 days. No blood from rectum. Tolerating regular diet. CT abd/pelvis with tubular, partially coiled radiopaque foreign body within the cecum and ascending colon with no evidence for bowel obstruction or perforation. Otherwise, no acute intra-abdominal or pelvic abnormality. States he swallows foreign bodies for the high he feels with self harm. Denies any SI.
[2021-09-27] MEDS ORDERED: LAVAGE SOLUTION 4000ML PO SCH (14:15)
[2021-09-27] MEDS ORDERED: SODIUM CHLORIDE 0.9% 1000ML 1,000 ML IV SCH (15:00)
[2021-09-27] MEDS ORDERED: ONDANSETRON INJ 2 MG/ML 2 ML VIAL IV STA (16:40)
[2021-09-27] MEDS ORDERED: MoRPHine SULFATE 4 MG/ML 1 ML CARP\\VIAL IV STA (16:40)
[2021-09-27] MEDS ORDERED: ONDANSETRON INJ 2 MG/ML 2 ML VIAL IV PRN (17:43)
[2021-09-27] MEDS ORDERED: PROMETHAZINE HCL 12.5 MG in SODIUM CHLORIDE 0.9% 50 ML IV PRN (20:29)
[2021-09-27] MEDS ORDERED: oxyCODONE HCL IR 5 MG TAB (IMMEDIATE RELEASE) PO PRN (20:29)
[2021-09-27] MEDS: ARIPiprazole 10 MG TAB PO SCH (20:35)
[2021-09-27] MEDS: diphenhydrAMINE Capsule 25 MG CAP PO SCH (20:35)
--- NOTE | 2021-09-27 20:50 | Surgery Consultation ---
Date of Consultation September 27, 2021 Assessment & Plan (1) Foreign body ingestion: Patient has been admitted on the hospitalist service. We recommend proceeding as follows: At the present time the patient does not have an acute abdomen. Unless the patient develops signs/symptoms of peritonitis or gross perforation or signs or symptoms of a small bowel or bowel obstruction there is no indication at this time for surgical intervention Recommend repeating a KUB in the morning to see if there is been any transit of the ingested foreign body in the patient's colon Recommend further evaluation by gastroenterology Additional recommendations will be forthcoming based on his clinical course as it unfolds Supervising Physician Co-Signing Physician Notes I personally saw and evaluated the patient with Rik Youngblood PA-C and agree with the assessment and plan 30-year-old male with a foreign body in the cecum/ascending colon CT images and results reviewed I think there is a low likelihood of a perforation given the patient's normal white count no fever and minimal abdominal pain We will keep the patient n.p.o. and have admitted to the medicine service with a GI consultation for possible colonoscopy His abdomen is completely benign, and no signs of any obstruction on CT as well Repeat a KUB in the morning History of Present Illness Reason for Consultation: Ingested foreign body Attending Physician: Cris Ferguson MD History of Present Illness This is a 22-year-old male who presented to [facility] emergency department secondary to ingestion of a foreign body. The patient notes on August 29 of this year he ate 2 plastic eating utensils, one small toothbrush, and 2 pens. The patient notes that he vomited up one of the plastic utensils, 2 of the pens, and passed the toothbrush in his stool. Following the ingestion of these foreign bodies the patient was seen at the [facility] emergency department on 08/30/2021. Patient did have an obstruction series performed at that time that showed multiple radiodensities/foreign bodies in the abdomen and left lower quadrant. There is no concern for small bowel obstruction or perforation at that time. He was ultimately [facility] to his [facility]al facility without the requirement of admission. He does report that over the past 4 days he has been having worsening abdominal pain on the right side of his abdomen. He denies any modifying factors or radiation. The medical clinician evaluated him at the correctional facility where he resides and felt that evaluation in the hospital was warranted. I did question the patient about his ingestion of foreign bodies and he says he has been doing this for quite some time. He says he denies any suicidal ideation or the intent to harm himself but says that when he ingested foreign bodies it causes pain which gives him a "high." Patient notes that he has had prior abdominal surgeries. In 2018 he again ate a plastic utensil and required a laparoscopy to retrieve said foreign body. He also notes that this time he required a partial small bowel resection. He notes that he was only in the hospital for 2 days postoperatively. In addition the patient notes he has had m ultiple EGDs and colonoscopies. Today in the emergency department the patient did have labs and imaging. He had a CT scan the abdomen and pelvis that showed the patient had a radiopaque foreign body within the cecum. Initial evaluation and read by the radiologist felt that there is no evidence of perforation but on further review they felt that the tip of that said foreign body presses against the cecum with tenting and a walled off perforation could not be excluded. No free air was present on the study. Labs include a CBC her white blood cell count and platelet count were normal. His hemoglobin and hematocrit were 13.0 and 36.8. Chemistry profile showed sodium was 132. Potassium, BUN, and creatinine are all within normal range. His total bilirubin had a slight elevation at 1.1. There were no other elevation of his LFTs. Urinalysis was not indicative of infection and a Covid test was negative. Since arrival to the emergency department the treating clinician emergency department has discussed with GI and orders for a bowel prep were initiated with tentative plans to perform a colonoscopy tomorrow. At the time of my interview the patient was resting comfortably in bed. He was in no distress. 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 Surgical History History of cardiac radiofrequency ablation (RFA) 2009 History of partial gastrectomy Family History Other Diabetes Heart disease Stroke Social History Smoking Status: Current every day smoker Tobacco Type: E-cigarettes / Vaping Hx Alcohol Use: No Hx Substance Use: No Preferred Language: Pakistani Communication Ability: Effective Functional Support Analyst Required: No Beliefs That Will Affect Care: None Current Living Situation: Other Current Living Situation Comment: [facility] Feels Safe at Home: Yes Safety Concerns: Feels Safe At This Time Assistive Devices: None Review of Systems Constitutional: no fever and no chills Eyes: no diplopia Ear, Nose, Mouth, Throat: no ear pain Respiratory: no cough and no dyspnea Cardiovascular: no chest pain Gastrointestinal: + abdominal pain; no nausea and no vomiting Genitourinary: no dysuria Musculoskeletal: no back pain Integumentary: no rash Neurologic: no localized weakness Psychiatric: no suicidal ideation Physical Exam Constitutional: WD/WN, vitals as above Eyes: no conjunctival abnormality ENMT: Ears: no external ear abnormality Mouth: no oropharynx abnormality Neck: trachea midline Respiratory: normal respiratory effort; no respiratory distress Cardiovascular: Rate/Rhythm: regular rate and regular rhythm Gastrointestinal (Abdomen): Patient's abdomen is soft and nondistended. Patient did have minor pain with palpation in the right lower quadrant of his abdomen. There is no rebound tenderness or guarding or signs of peritoneal irritation/peritonitis. Musculoskeletal: No calf tenderness Skin: no rashes Neurologic: moves all extremities Psychiatric: Orientation: alert and oriented x 3 Affect: + irritable affect Results & Data ([facility]) Vital Signs (Past 12 Hours) Vital Signs Temp Pulse Resp BP Pulse Ox 09/27/21 19:30 92 H 20 126/80 98 09/27/21 18:03 87 20 09/27/21 17:30 79 17 121/75 09/27/21 16:30 137/94 99 09/27/21 16:01 88 21 149/107 H 100 09/27/21 16:00 86 26 H 100 09/27/21 15:31 79 23 150/114 H 100 09/27/21 14:31 78 17 144/85 H 97 09/27/21 14:00 86 21 99 09/27/21 13:30 89 19 142/86 H 92 09/27/21 13:00 87 19 118/81 100 09/27/21 12:30 84 21 107/82 99 09/27/21 12:01 87 15 138/84 09/27/21 12:00 89 19 93 09/27/21 11:30 95 H 19 115/79 98 09/27/21 11:03 87 15 99 09/27/21 10:09 37.0 C 80 20 182/96 H 97 PG Care Time/CCT Total # of Minutes Spent Total Time Spent with Patient: Total time spent is greater than 50% in coordination of care (as documented) at patient's floor/unit and/or counseling patient: Coding Level of Care Code 29642 Inpt Consult Level 5 Diagnoses Foreign body ingestion T18.9XXA
[2021-09-27] MEDS: MoRPHine SULFATE 4 MG/ML 1 ML CARP\\VIAL IV PRN (22:43)
[2021-09-28] MEDS: MoRPHine SULFATE 4 MG/ML 1 ML CARP\\VIAL IV PRN ×4 (04:04→22:48)
--- NOTE | 2021-09-28 06:16 | Communication Note ---
Date of Service: September 28, 2021 Patient revisited at bedside this morning. Since admission he has remained hemodynamically stable. He has been afebrile. No tachycardia noted. Morning the patient continues to complain of abdominal pain similar to what he experienced in the emergency department. Pain is located primarily in the right side of his abdomen in the right lower quadrant and is worse with palpation. Denies any nausea vomiting. He has not not passed any foreign bodies in his bowel movements. On physical exam the patient's abdomen is soft, nonrigid, and nondistended. There is no rebound tenderness or guarding however the patient did have pain with palpation in the right lower quadrant.
[2021-09-28 06:52] LABS: Hematocrit (blood only) 36.1 % (42-52); Hemoglobin 12.5 g/dL (14.0-18.0); Mean Corpuscular Hemoglobin 31.3 pg (25-34); Mean Corpuscular Hgb Conc 34.6 g/dL (32-36); Mean Corpuscular Volume 90.3 fL (80-100); Mean Platelet Volume 10.1 fL (7.4-10.4); Platelet Count 179 K/uL (130-400); RDW Coefficient of Variation 13.2 % (11.5-14.5); RDW Standard Deviation 43.3 fL (36.4-46.3); White Blood Count 6.86 K/uL (4.8-10.8)
[2021-09-28 07:11] LABS: Anion Gap 7 (3-11); BUN Creatinine Ratio 9.7 (10-20); Blood Urea Nitrogen 6 mg/dl (6-23); Carbon Dioxide 27 mmol/L (21-32); Chloride 102 mmol/L (98-107); Est GFR (African American) > 150.0 ml/min; Est GFR (Non-African American) 134.1 ml/min; Glucose 77 mg/dl (70-99(Fasting)); Potassium 3.7 mmol/L (3.5-5.1); Sodium 136 mmol/L (136-145)
[2021-09-28] MEDS: ACETAMINOPHEN 325 MG TAB PO PRN ×3 (07:54→20:15)
[2021-09-28] MEDS ORDERED: LAVAGE SOLUTION 4000ML PO ONE (09:00)
[2021-09-28] MEDS: ARIPiprazole 10 MG TAB PO SCH ×2 (09:19→20:15)
--- NOTE | 2021-09-28 09:42 | Gastrointestinal Consultation ---
Date of Consultation September 28, 2021 Assessment & Plan (1) Abdominal pain, acute, right lower quadrant: Will get an urgent KUB and see if the bowel prep that he mostly completed last night has changed the position of the foreign body. Dependent of KUB results, may consider further prep and colonoscopy tomorrow. Of note, the patient initially told me that he would not be willing to take any further prep or if he is unable to eat - that he would "refuse treatment." We agreed to get the KUB and discuss the plan further when the KUB results are back. Please keep NPO for now. (2) Foreign body ingestion: Supervising Physician Co-Signing Physician Notes I saw and evaluated the patient. We have been consulted yesterday afternoon from the emergency room due to a prior ingestion for the body. The patient had a CT scan which initially showed a foreign body in the cecum. We had initially discussed a colonoscopy for removal of the object. A secondary read of the initial CT scan was performed which showed evidence of a contained perforation. The patient notes that he has right-sided abdominal discomfort. He does have a long history of foreign body ingestion is undergone numerous upper endoscopies in the past. Physical examination Thin male, no obvious distress Impression: Patient with a swallowed foreign body, CT seems to indicate there may be a contained perforation. In addition follow-up x-ray today seems to indicate that there may be a clustering of objects or perhaps a 14 cm object within the right colon. Given the length of the foreign body in the specter of perforation colonoscopy at this institution may not be in the patient's best interest. Please note that I have talked discussed the case with a number of other GI providers at our hospital who had a similar opinion to mine. Recommendations consider referral to a tertiary care center History of Present Illness Reason for Consultation: Foreign Body Ingestion Requesting Physician: Macrina Rosado PA-C Attending Physician: Sriram Simms MD History of Present Illness Mr. Abhi Duarte is a 30 yr old male pt who is a prisoner. He carries a hx of HTN, history of WPW, mood disorder, history of partial gastrectomy, habitual swallowing of foreign bodies. He reports having swallowed a 2 plastic sporks and other objects on Aug 29 and has passed or vomited all but one spork. Since last Sunday, he has had RLQ abdominal pain, a 7 of 10. He was brought to the ED where CT suggested a partially coiled plastic spork in the cecum/ascending colon. There was question of a walled off microperforation. He was seen by surgery who felt that surgery was not needed at this time. Last evening, he completed most of a 2L Golytely bowel prep and reports that he passed several clear, liquid BMs. This morning, he continues with the RLQ pain but appears well, is able to move around and sit up in bed w/o expressing increased pain, w/o any evidence of guarding. On exam, abd is thin, soft, non distended, no palpable mass but is tender on palpation of the RLQ. 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 Surgical History History of cardiac radiofrequency ablation (RFA) 2009 History of partial gastrectomy Family History Other Diabetes Heart disease Stroke Social History Smoking Status: Current every day smoker Tobacco Type: E-cigarettes / Vaping Hx Alcohol Use: No Hx Substance Use: No Preferred Language: Frisian Communication Ability: Effective Hand Counter Required: No Beliefs That Will Affect Care: None Current Living Situation: Other Current Living Situation Comment: [facility] Feels Safe at Home: Yes Safety Concerns: Feels Safe At This Time Assistive Devices: None Review of Systems Review of Systems: ROS: Gen: Denies weakness, fevers, weight loss Eyes: No eye redness, or pain, no recent vision changes Resp: No SOB, no cough Cardio: No palpitations/irregular beats, no chest pain GI: as per HPI, otherwise (-). : Denies pain on urination Skin: No jaundice, itching or new rashes Physical Exam Constitutional: well developed, + thin and cooperative Eyes: PERRL, conjunctivae normal, anicteric sclerae Respiratory: normal respiratory effort, lungs clear to auscultation Cardiovascular: RRR, no murmur, no edema Gastrointestinal (Abdomen): Percussion/Palpation: + abdomen tender (Rt lower quad tenderness on moderately firm palpation; no distention;BS +) and abdomen soft; no guarding, abdomen not rigid and no ascites Skin: no rashes, warm and dry normal turgor Neurologic: PERRL, EOMI, accommodation nl, no face palsy, no dysarthria awake; not confused Psychiatric: A+Ox3, euthymic affect Results & Data ([facility]) Vital Signs (Past 12 Hours) Vital Signs Temp Pulse Pulse Resp BP Pulse Ox 09/28/21 07:58 37.0 C 72 19 110/59 L 95 09/28/21 07:18 78 09/28/21 03:55 80 18 113/68 98 09/28/21 00:23 82 Laboratory Results WBC6.8, Hb 12.5, Hct 36, Plts 179, Na 136, K 3.7, Cl 102, CO2 27, BUn 6, Cr 0.62, Plts 77. Diagnostic Findings CTAP w IV contrast 09/27/21: . Tubular, partially coiled radiopaque foreign body within the cecum and ascending colon with no evidence for bowel obstruction or perforation. 2. Otherwise, no acute intra-abdominal or pelvic abnormality. Addendum: On further review, the tip of the foreign body presses against the cecum with tenting. Fluid surrounds the foreign body at this site as seen on images 200 to 256 of 481. This fluid has a different attenuation than the fluid and stool within the cecum. The findings are highly suspicious for local walled off perforation with only fluid present. There is no air seen within this. There is again no free air present.
--- NOTE | 2021-09-28 10:57 | XRay Report ---
KUB HISTORY: Evaluate foreign bodies. COMPARISON: Abdomen and pelvis CT 09/27/2021. FINDINGS: No significant change in position of the radiopaque foreign bodies located in expected loca tion of the cecum/ascending colon. These measure approximately 14 cm in length. No definite pneumoper itoneum or pneumatosis at this time. No renal calculi. No ureteral calculi. Prior cholecystectomy. T he lung bases are clear. IMPRESSION: No change in position of the radiopaque foreign bodies at the expected location of the cecum/ascendin g colon. These measure approximately 14 cm in length. ACT 112: Negative or not required by law. Electronically signed by: Faheem Christy M.D. 09/28/2021 10:55 AM
--- NOTE | 2021-09-28 13:10 | Hospitalist Progress Note ---
Date of Service September 28, 2021 Assessment & Plan (1) Foreign body ingestion: (2) Vapes nicotine containing substance: (3) Mcdli-Rtqqcqpus-Trhqo syndrome: (4) Borderline personality disorder: Plan: per previous MD's notes with addendum: This is a 30yo M from [facility] with PMH of HTN, history of WPW, mood disorder, history of partial gastrectomy who presents afteringestion of foreign bodies. Foreign body ingestion Patient admits to swallowing multiple FBs on August 29 including flex pens, a toothbrush and 2 sporks- has passed or vomited all of these except for [address] A/P with tubular, partially coiled radiopaque FB within the cecum and ascending colon with no evidence for bowel obstruction or perforation. Otherwise, no acute intra-abdominal or pelvic abnormality Case discussed with GI - undergoing prep today for colonoscopy in AM Clears for now, NPO @ midnight 09/28/21 still has RLQ pain per GI, FB not amenable for colonoscopy Gen Surg to re-eval patient today, awaiting update continue NPO, IV fluids WPW (Jwpik-Tteerlcqt-Oupkn syndrome) Patient endorsing history, no previous notes or med records to clarify Has not followed with [facility] in years Mood disorder Continue Abilify patient already seeing Psychiatrist at correctional facility Insomnia Benadryl HS DVT Ppx: teds Code status: FULL PCP: [facility] Dispo: pending Admission and Anticipated Discharge Date Admission Date: September 28, 2021 Subjective FF UP FOR FB INGESTION,ETC seen resting in bed, comfortable not in distress still has RLQ pain (+) 2 bms yesterday, no passage of FB, no melena/hematochezia no nausea, fever/chills no chest pain, dyspnea, palpitations, dizziness Review of Systems Review of Systems: all noted and negative except for above Physical Exam Physical Exam: General- oriented x 3, not in distress, speaks in sentences with no effort or accessory muscle use Head- atraumatic Eyes- PERRL, EOMI, anicteric ENT- oropharynx clear Neck- supple, no JVD, no adenopathy, no thyromegaly; carotids +2/2, no bruits appreciated Lungs- clear to auscultation bilaterally, no rales/wheezes Heart- normal rate, regular rhythm; no murmur, no gallop, no rub appreciated Abdomen- normal bowel sounds, nondistended, soft, (+) mild RLQ tenderness, no masses or hepatosplenomegaly Extremities- no pretibial edema, no calf tenderness; peripheral pulses intact Neuro- alert, oriented x 3; CN 2-12 grossly intact; motor 5/5 bilaterally;s ensation 100% on all extremities; no other gross focal neurologic deficits Skin- warm & dry Results & Data Results & Data ([facility]) Vital Signs (Past 12 Hours) Vital Signs Temp Pulse Pulse Resp BP Pulse Ox 09/28/21 11:19 36.4 C L 87 18 112/70 99 09/28/21 07:58 37.0 C 72 19 110/59 L 95 09/28/21 07:18 78 09/28/21 03:55 80 18 113/68 98 all noted and reviewed including below
--- NOTE | 2021-09-28 13:42 | Surgery Progress Note ---
Date of Service September 28, 2021 Assessment & Plan (1) Foreign body ingestion: Plan: object remains in RLQ exam benign, WBC normal would prefer less invasive attempt at removal discussed with GI, consider transfer for advanced endoscopy Admission and Anticipated Discharge Date Admission Date: September 28, 2021 Supervising Physician Co-Signing Physician Notes I personally saw and evaluated the patient with Jonathan Turner PA-C and agree with the assessment and plan 30-year-old male with a foreign body in the cecum/ascending colon After discussion with gastroenterology the best course of action would be to have the patient transfer to [facility] where advanced endoscopy could be entertained The patient is stable with minimal abdominal pain at this time therefore I continue to think a perforation is a low likelihood No plans for any surgery in this patient as I think this would be not be approp riate prior to attempted endoscopy Subjective having BMs, some discomfort RLQ Physical Exam Constitutional: WD/WN, vitals as above Gastrointestinal (Abdomen): Inspection/Auscultation: abdomen normal to inspection; abdomen not distended Percussion/Palpation: + abdomen tender (minimal RLQ) and abdomen soft; no guarding Results & Data ([facility]) Vital Signs (Past 12 Hours) Vital Signs Temp Pulse Pulse Resp BP Pulse Ox 09/28/21 11:19 36.4 C L 87 18 112/70 99 09/28/21 07:58 37.0 C 72 19 110/59 L 95 09/28/21 07:18 78 09/28/21 03:55 80 18 113/68 98 PG Care Time/CCT Total # of Minutes Spent Total Time Spent with Patient: Total time spent is greater than 50% in coordination of care (as documented) at patient's floor/unit and/or counseling patient: Coding Level of Care Code 22328 Subseq Hosp Care Lvl 1 Diagnoses Foreign body ingestion T18.9XXA
--- NOTE | 2021-09-28 14:34 | Discharge Summary ---
Date of Service September 28, 2021 Admission HPI Per Admitting Provider This is a 30yo M from [facility] with PMH of HTN, history of WPW, mood disorder, history of partial gastrectomy who presents afteringestion of foreign body. Patient admits to swallowing multiple foreign bodies on August 29 including flex pens, a toothbrush and 2 sporks. Was seen in ED and then discharged back to [facility]. Has passed or vomited all of these except for 1 spork. Is endorsing RLQ pain x 3 days that he describes as a 7/10 constant ache which is exacerbated with movement. Denies persistent N/V. No bowel movement in 3 days. No blood from rectum. Tolerating regular diet. CT abd/pelvis with tubular, partially coiled radiopaque foreign body within the cecum and ascending colon with no evidence for bowel obstruction or perforation. Otherwise, no acute intra-abdominal or pelvic abnormality. States he swallows foreign bodies for the high he feels with self harm. Denies any SI. Admission Exam (Per Admitting) Constitutional Physical Exam: General Appearance:WD/WN, vitals as above, NAD, sitting up in bed, pleasant, conversing easily Head: normocephalic, atraumatic Eyes:normal inspection, PERRL, conjunctivae normal, anicteric sclerae ENT: external ear and nose normal, oropharynx normal Neck: normal visual inspection, trachea midline, no thyromegaly Respiratory:normal respiratory effort, lungs clear to auscultation, no wheeze, rales, rhonchi. No accessory muscle use Cardiovascular: regular rate, rhythm, no murmur, normal peripheral pulses, no BLE edema. Vessels: no JVD Chest: normal inspection of chest Abdomen/GI: normal bowel sounds, soft, + RLQ TTP, no hepatosplenomegaly Extremities/Musculoskeletal: no cyanosis or clubbing, extremities motor strength 5/5 Neurologic: PERRL, EOMI, accommodation nl, no face palsy, no dysarthria, CN's II-XI intact bilaterally and moves all extremities Psychiatric:A+Ox3, euthymic affect Skin: no rashes, normal color, warm/dry Discharge Data Consultations 09/27/21 14:05 ED Decision to Admit Stat 09/27/21 17:43 Consult Gastroenterology Routine 09/27/21 20:15 Consult General Surgery Stat 09/28/21 14:30 Burn CD for patient Routine Procedures Performed ADDENDUM On further review, the tip of the foreign body presses against the cecum with tenting. Fluid surrounds the foreign body at this site as seen on images 200 to 256 of 481. This fluid has a different attenuation than the fluid and stool within the cecum. The findings are highly suspicious for local walled off perforation with only fluid present. There is no air seen within this. There is again no free air present. The emergency Department was called with results of this study. Electronically signed by: Osmar Patiño M.D. 09/27/2021 4:[address] abd pelvis IV con only CLINICAL HISTORY: RLQ abd pain, ingested FB COMPARISON STUDY: 06/03/2021 CT DOSE: 378.95 mGy.cm TECHNIQUE: Standard CT of the Abdomen and Pelvis was performed with IV contrast. A dose lowering technique was utilized adhering to the principles of ALARA. Contrast Volume: Optiray 320, 95 ml. The patient did not receive oral contrast. FINDINGS: Lung base: The lung bases are clear. Abdominal cavity: There is no evidence for abdominal mass, adenopathy or ascites. Liver: There is homogeneous attenuation of the liver parenchyma. There is no evidence for enhancing mass lesion. Spleen: There is homogeneous attenuation of the splenic parenchyma. There is no enhancing mass lesion. Pancreas: There is homogeneous attenuation of the pancreatic parenchyma. There is no evidence for mass lesion or peripancreatic fluid collection. Gall Bladder: The gallbladder is well distended with no evidence for intraluminal calculi, wall thickening or pericholecystic edema. Adrenal glands: The adrenal glands are normal in size and attenuation. There is no evidence for enhancing mass lesion. Kidneys: There is homogeneous attenuation of the renal parenchyma bilaterally. There is no evidence for renal calculus or hydronephrosis. There is no evidence for enhancing mass. 2 sharply defined right renal cysts are present. Bowel: Postsurgical changes are present within the stomach. There is a tubular, coiled radiopaque foreign body present within the cecum and ascending colon. There is no associated obstruction. The bowel loops are otherwise normally placed within the abdomen and pelvis without evidence for dilatation or obstruction. There is no evidence for mass lesion. There are no inflammatory changes present. There is no evidence for free air. The appendix is not visualized. Bladder: The bladder is distended with no evidence for focal mass, calculus or diverticulum. : There is no evidence for pelvic mass or adenopathy. There is no evidence for pelvic ascites. Vasculature: There is no evidence for aneurysmal dilatation of the abdominal aorta. Osseous structures: There is no acute osseous pathology. IMPRESSION: 1. Tubular, partially coiled radiopaque foreign body within the cecum and ascending colon with no evidence for bowel obstruction or perforation. 2. Otherwise, no acute intra-abdominal or pelvic abnormality. ACT 112: Negative or not required by law. Electronically signed by: Osmar Patiño M.D. 09/27/2021 12:55 PM KUB HISTORY: Evaluate foreign bodies. COMPARISON: Abdomen and pelvis CT 09/27/2021. FINDINGS: No significant change in position of the radiopaque foreign bodies located in expected location of the cecum/ascending colon. These measure approximately 14 cm in length. No definite pneumoperitoneum or pneumatosis at this time. No renal calculi. No ureteral calculi. Prior cholecystectomy. The lung bases are clear. IMPRESSION: No change in position of the radiopaque foreign bodies at the expected location of the cecum/ascending colon. These measure approximately 14 cm in length. ACT 112: Negative or not required by law. Electronically signed by: Faheem Christy M.D. 09/28/2021 10:55 AM Dictated:09/28/21 1054 Transcribed: 09/28/21 1054 Operation Date: 09/28/21 16:30 <No data on this case meets the specified criteria> Hospital Course (1) Foreign body ingestion: (2) Vapes nicotine containing substance: (3) Dveoa-Izewrsblf-Lbyrs syndrome: (4) Borderline personality disorder: per previous MD's notes with addendum: This is a 30yo M from [facility] with PMH of HTN, history of WPW, mood disorder, history of partial gastrectomy who presents afteringestion of foreign bodies. Foreign body ingestion with Contained Perforation Patient admits to swallowing multiple FBs on August 29 including flex pens, a toothbrush and 2 sporks- has passed or vomited all of these except for [address] A/P with tubular, partially coiled radiopaque FB within the cecum and ascending colon with no evidence for bowel obstruction or perforation. Otherwise, no acute intra-abdominal or pelvic abnormality Case discussed with GI - undergoing prep today for colonoscopy in AM Clears for now, NPO @ midnight 09/28/21 still has RLQ pain per GI, Foreign body retrieval not amenable for colonoscopy Gen Surg: recommending transfer to tertiary care center for FB removal via advanced endoscopy vs. 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
[2021-09-28] MEDS: D5NSS + 20MEQ KCL 20 MEQ/1,000 ML BAG IV SCH (14:59)
[2021-09-28] MEDS ORDERED: ZOLPIDEM TARTRATE 5 MG TAB PO PRN (18:14)
[2021-09-28] MEDS: MELATONIN 3 MG TAB PO PRN (20:15)
[2021-09-28] MEDS: diphenhydrAMINE Capsule 25 MG CAP PO SCH (20:15)
[2021-09-29] MEDS: D5NSS + 20MEQ KCL 20 MEQ/1,000 ML BAG IV SCH ×3 (00:20→17:02)
[2021-09-29] MEDS: MoRPHine SULFATE 4 MG/ML 1 ML CARP\\VIAL IV PRN ×2 (03:16→10:51)
[2021-09-29] MEDS: ACETAMINOPHEN 325 MG TAB PO PRN ×3 (03:22→17:49)
[2021-09-29] MEDS ORDERED: PIPERACILL/TAZOBAC CONSULT ACTIVE PRN (08:28)
[2021-09-29] MEDS: ARIPiprazole 10 MG TAB PO SCH ×2 (08:47→20:24)
[2021-09-29 09:13] LABS: Basophils # (auto) 0.01 K/uL (0-0.2); Basophils % (auto) 0.1 %; Eosinophils # (auto) 0.04 K/uL (0-0.5); Eosinophils % (auto) 0.5 %; Hematocrit (blood only) 33.8 % (42-52); Hemoglobin 11.6 g/dL (14.0-18.0); Immature Granulocytes # (auto) 0.01 K/uL (0.00-0.02); Immature Granulocytes % (auto) 0.1 %; Lymphocytes # (auto) 0.71 K/uL (1.2-3.4); Lymphocytes % (auto) 9.6 %; Mean Corpuscular Hemoglobin 30.9 pg (25-34); Mean Corpuscular Hgb Conc 34.3 g/dL (32-36); Mean Corpuscular Volume 90.1 fL (80-100); Mean Platelet Volume 9.7 fL (7.4-10.4); Monocytes # (auto) 0.77 K/uL (0.11-0.59); Monocytes % (auto) 10.4 %; Neutrophils # (auto) 5.86 K/uL (1.4-6.5); Neutrophils % (auto) 79.3 %; Platelet Count 172 K/uL (130-400); RDW Standard Deviation 43.1 fL (36.4-46.3); Red Blood Count 3.75 M/uL (4.7-6.1)
[2021-09-29] MEDS ORDERED: PIPERACILLIN/TAZOBACTAM 3.375 GM in DEXTROSE 5% 100 ML IV ONE (09:15)
[2021-09-29 09:44] LABS: Anion Gap 5 (3-11); BUN Creatinine Ratio 7.9 (10-20); Blood Urea Nitrogen 5 mg/dl (6-23); Calcium 8.5 mg/dl (8.5-10.1); Carbon Dioxide 28 mmol/L (21-32); Chloride 101 mmol/L (98-107); Creatinine Clr Calc Pharmacy 189.9 ml/min; Est GFR (African American) > 150.0 ml/min; Est GFR (Non-African American) 133.2 ml/min; Glucose 102 mg/dl (70-99(Fasting)); Magnesium 1.6 mg/dl (1.7-2.4); Sodium 134 mmol/L (136-145)
--- NOTE | 2021-09-29 14:19 | Hospitalist Progress Note ---
Date of Service September 29, 2021 Assessment & Plan (1) Foreign body ingestion: (2) Vapes nicotine containing substance: (3) Klsnl-Odywdpogg-Joexf syndrome: (4) Borderline personality disorder: Plan: per previous MD's notes with addendum: This is a 30yo M from [facility] with PMH of HTN, history of WPW, mood disorder, history of partial gastrectomy who presents afteringestion of foreign bodies. Foreign body ingestion with Contained Perforation Patient admits to swallowing multiple FBs on August 29 including flex pens, a toothbrush and 2 sporks- has passed or vomited all of these except for [address] A/P with tubular, partially coiled radiopaque FB within the cecum and ascending colon with no evidence for bowel obstruction or perforation. Otherwise, no acute intra-abdominal or pelvic abnormality Case discussed with GI - undergoing prep today for colonoscopy in AM Clears for now, NPO @ midnight 09/29/21 still has RLQ pain per GI, Foreign body retrieval not amenable for colonoscopy Gen Surg: recommending transfer to tertiary care center for FB removal via advanced endoscopy vs. colorectal surgery continue NPO, IV fluids discussed with [facility] Dr. 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 Mood disorder Continue Abilify patient already seeing Psychiatrist at correctional facility Insomnia Benadryl HS DVT Ppx: teds Code status: FULL PCP: [facility] Dispo:transfer to [facility] Admission and Anticipated Discharge Date Admission Date: September 28, 2021 Subjective ff up for FB ingestion, etc (+) fever of 28 over night seen resting in bed, not in distress reports mild increase in pain over RLQ (+) BMs, no hematochezia/melena, nausea no chest pain, dyspnea, palpitations, dizziness no other symptoms Review of Systems Review of Systems: all noted and negative except for above Physical Exam Physical Exam: General- oriented x 3, not in distress, speaks in sentences with no effort or accessory muscle use Eyes- anicteric Neck- no JVD Lungs- clear breath sounds bilaterally, no rales/wheezes Heart- normal rate, regular rhythm; no murmurs Abdomen- normal bowel sounds, nondistended, soft, mild RLQ tenderness Extremities- no pretibial edema, no calf tenderness Neuro- alert, oriented x 3; no gross focal neurologic deficits Skin- warm & dry Results & Data Results & Data ([facility]) Vital Signs (Past 12 Hours) Vital Signs Temp Pulse Resp BP Pulse Ox 09/29/21 11:39 37.5 C 82 18 99/61 L 94 09/29/21 07:48 38.3 C H 91 H 18 110/63 95 09/29/21 04:10 36.6 C 109 H 24 142/74 H 96 all noted and reviewed including below
[2021-09-29] MEDS: MAGNESIUM SULFATE / D5W 1 GM/100 ML BAG IV SCH ×2 (14:23→16:39)
[2021-09-29] MEDS: PIPERACILLIN/TAZOBACTAM 3.375 GM in DEXTROSE 5% 100 ML IV SCH ×2 (14:25→22:06)
[2021-09-29] MEDS: MELATONIN 3 MG TAB PO PRN (20:24)
[2021-09-29] MEDS: diphenhydrAMINE Capsule 25 MG CAP PO SCH (20:24)
[2021-09-29] MEDS: KETOROLAC TROMETHAMINE 15 MG/ML VIAL IV PRN (20:24)
[2021-09-30] MEDS: D5NSS + 20MEQ KCL 20 MEQ/1,000 ML BAG IV SCH ×4 (00:39→21:28)
[2021-09-30] MEDS: ACETAMINOPHEN 325 MG TAB PO PRN ×3 (00:41→22:36)
[2021-09-30] MEDS: PIPERACILLIN/TAZOBACTAM 3.375 GM in DEXTROSE 5% 100 ML IV SCH ×3 (05:31→21:59)
[2021-09-30] MEDS: KETOROLAC TROMETHAMINE 15 MG/ML VIAL IV PRN ×2 (05:31→19:55)
[2021-09-30 08:50] LABS: Basophils # (auto) 0.01 K/uL (0-0.2); Basophils % (auto) 0.2 %; Eosinophils # (auto) 0.12 K/uL (0-0.5); Hematocrit (blood only) 33.2 % (42-52); Immature Granulocytes # (auto) 0.01 K/uL (0.00-0.02); Immature Granulocytes % (auto) 0.2 %; Lymphocytes # (auto) 0.92 K/uL (1.2-3.4); Lymphocytes % (auto) 15.1 %; Mean Corpuscular Hemoglobin 30.5 pg (25-34); Mean Corpuscular Hgb Conc 33.1 g/dL (32-36); Mean Platelet Volume 9.7 fL (7.4-10.4); Monocytes # (auto) 0.64 K/uL (0.11-0.59); Monocytes % (auto) 10.5 %; Neutrophils # (auto) 4.41 K/uL (1.4-6.5); Platelet Count 163 K/uL (130-400); RDW Coefficient of Variation 12.9 % (11.5-14.5); RDW Standard Deviation 43.6 fL (36.4-46.3); Red Blood Count 3.61 M/uL (4.7-6.1); White Blood Count 6.11 K/uL (4.8-10.8)
[2021-09-30 09:17] LABS: Anion Gap 2 (3-11); BUN Creatinine Ratio 5.1 (10-20); Blood Urea Nitrogen 3 mg/dl (6-23); Calcium 8.4 mg/dl (8.5-10.1); Carbon Dioxide 29 mmol/L (21-32); Chloride 106 mmol/L (98-107); Creatinine Clr Calc Pharmacy 202.8 ml/min; Est GFR (African American) > 150.0 ml/min; Est GFR (Non-African American) 136.8 ml/min; Glucose 109 mg/dl (70-99(Fasting)); Potassium 4.3 mmol/L (3.5-5.1); Sodium 137 mmol/L (136-145)
[2021-09-30] MEDS: ARIPiprazole 10 MG TAB PO SCH ×2 (09:20→19:54)
--- NOTE | 2021-09-30 11:19 | History & Physical Bridge Note ---
Date of Service September 30, 2021 History & Physical Bridge Note I have examined the patient, reviewed the History & Physical and in the interval since the performance of the History & Physical I have noted the following changes of clinical significance: no changes noted Colonoscopy today for retrieval of foreign bodies. Clinically doing well with no signs of perforation.
--- NOTE | 2021-09-30 11:39 | Anesthesiology Consultation ---
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 Consults Requested none ASA ASA2 Proposed Anesthesia Anesthesia Type: MAC Risk / Benefits Reviewed With: PT / POA / Parent / Guardian, Accepts Plan and Informed Consent Obtained History Surgery Operation Date: 09/28/21 16:30 Proposed Procedures p Colonoscopy Dr Korey Nair DO Operation Date: 09/30/21 17:40 Proposed Procedures p Colonoscopy Dr Radha Garcia MD Height/Weight Height: 6 ft Weight: 84.9 kg Allergies Allergy/AdvReac Type Severity Reaction Status Date / Time sertraline [From Zoloft] Allergy Unknown Per record Unverified 09/27/21 12:25 from SCI Medications Home Medications Medication Instructions Recorded Confirmed Last Taken diphenhydramine HCl 25 mg capsule 50 mg PO HS 06/03/21 09/27/21 06/02/21 (Benadryl) aripiprazole 10 mg tablet (Abilify) 10 mg PO BID 06/19/21 09/27/21 Unknown sennosides 8.6 mg-docusate sodium 2 tab-cap PO DAILY 09/27/21 09/27/21 Unknown 50 mg tablet (Senokot-S) Active Medications Generic Name Dose Route Start Last Admin Trade Name Freq PRN Reason Stop Dose Admin Acetaminophen 650 mg 09/27/21 17:43 09/30/21 00:41 Acetaminophen 325 Mg Tab PO 10/27/21 17:42 650 mg Q4H PRN Administration Pain or Fever Aripiprazole 10 mg 09/27/21 21:00 09/30/21 09:20 Aripiprazole 10 Mg Tab PO 10/27/21 20:59 10 mg BID AURA Administration Diphenhydramine HCl 50 mg 09/27/21 21:00 09/29/21 20:24 Diphenhydramine Capsule 25 Mg Cap PO 10/27/21 20:59 50 mg HS AURA Administration Potassium Chloride/Dextrose/Sod Cl 20 meq in 1,000 mls @ 125 mls/hr 09/28/21 14:45 09/30/21 11:01 D5nss + 20meq Kcl IV 10/28/21 14:44 0 mls/hr .Q8H AURA Infusion Protocol Piperacillin Sod/Tazobactam 115 mls @ 28.75 mls/hr 09/29/21 14:00 09/30/21 09:31 Sod 3.375 gm/ Dextrose IV 10/09/21 13:59 Infused Q8H A[facility]A Infusion Protocol Ketorolac Tromethamine 15 mg 09/29/21 11:33 09/30/21 05:31 Ketorolac Tromethamine 15 Mg/Ml Vial IV 10/04/21 11:32 15 mg Q6H PRN Administration Pain Melatonin 3 mg 09/28/21 18:16 09/29/21 20:24 Melatonin 3 Mg Tab PO 10/28/21 18:15 3 mg HS PRN Administration Sleep NPO Date Last Intake of Fluids: 09/30/21 Time Last Intake of Fluids: 08:00 Date Last Intake of Solids: 09/27/21 Time Last Intake of Solids: 06:30 Past Medical History Medical History Borderline personality disorder Hypertension Insomnia Swallowed foreign body 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 Exercise / Class Metabolic Activity 1 > 8 Run/Swim/Ski/Tennis Past Family History Family History Other Diabetes Heart disease Stroke Past Surgical History Surgical History History of cardiac radiofrequency ablation (RFA) 2009 History of partial gastrectomy Past Anesthesia History No Hx of Anesthesia Complications and No Family Hx of Anesthesia Complications History of PONV No Hx of PONV and No Hx of Motion Sickness Social History Smoking Status: Current every day smoker tobacco type: e-cigarettes Hx Alcohol Use: No Alcohol type: beer alcohol intake frequency: other Hx Substance Use: No substance use type: does not use Last Used Substance Other:: 2018 Physical Exam Vital Signs Last Vital Signs Temp 37.2 C 09/30/21 11:26 Pulse 83 09/30/21 11:26 Resp 18 09/30/21 11:26 BP 112/92 09/30/21 11:26 Pulse Ox 97 09/30/21 11:26 Constitutional no acute distress ENMT Mouth: + dentition abnormality (2 missing) and + chipped teeth; no loose teeth Thyromental Distance: > or= 3.5 Finger Breadths Mallampati Class: I Neck normal visual inspection, trachea midline and + facial hair; neck extension not limited Respiratory normal respiratory effort; no respiratory distress Auscultation: lungs clear to auscultation bilaterally; no crackles, no rhonchi and no wheezes Cardiovascular Rate/Rhythm: regular rate and regular rhythm Heart Sounds: no gallop, no murmur and no cardiac rub Neurologic moves all extremities and awake Psychiatric Orientation: alert Testing Laboratory Results 09/30/21 08:39 09/30/21 08:39 Urine Color Yellow 09/27/21 10:50 Urine Appearance Clear (Clear) 09/27/21 10:50 Urine pH 7.0 (4.5-7.5) 09/27/21 10:50 Ur Specific [place] 1.004 (1.000-1.030) 09/27/21 10:50 Urine Protein Negative (Negative) 09/27/21 10:50 Urine Glucose (UA) Negative (Negative) 09/27/21 10:50 Urine Ketones Negative (Negative) 09/27/21 10:50 Urine Nitrite Negative (Negative) 09/27/21 10:50 Ur Leukocyte Esterase Negative (Negative) 09/27/21 10:50 Electrocardiogram Date: 06/19/21 Findings: + NSR @ (66) WPW Chest X-Ray Date: 08/30/21 Findings: + NAD (Multiple FB in intestines.)
--- NOTE | 2021-09-30 11:53 | Hospitalist Progress Note ---
Date of Service September 30, 2021 Assessment & Plan (1) Foreign body ingestion: (2) Vapes nicotine containing substance: (3) Lsmbn-Gaxwcuotz-Prjvk syndrome: (4) Borderline personality disorder: Plan: per previous MD's notes with addendum: This is a 30yo M from [place] [facility] with PMH of HTN, history of WPW, mood disorder, history of partial gastrectomy who presents afteringestion of foreign bodies. Foreign body ingestion with Contained Perforation Patient admits to swallowing multiple FBs on August 29 including flex pens, a toothbrush and 2 sporks- has passed or vomited all of these except for [address] A/P with tubular, partially coiled radiopaque FB within the cecum and ascending colon with no evidence for bowel obstruction or perforation. 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 Seen sitting up in bed, comfortable, not in distress States right lower quadrant pain is better today No nausea Has small bowel movements, watery No melena hematochezia No chills Denies shortness of breath, chest pain, palpitations, dizziness Review of Systems Review of Systems: all noted and negative except for above Physical Exam Physical Exam: General- oriented x 3, not in distress, speaks in sentences with no effort or accessory muscle use Eyes- anicteric Neck- no JVD Lungs- clear breath sounds, no crackles or wheezing bilaterally Heart- normal rate, regular rhythm; no murmurs Abdomen- normal bowel sounds, nondistended, soft, mild right lower quadrant tenderness Extremities- no pretibial edema, no calf tenderness Neuro- alert, oriented x 3; no gross focal neurologic deficits Skin- warm & dry Results & Data Results & Data ([facility]) Vital Signs (Past 12 Hours) Vital Signs Temp Pulse Pulse Resp BP Pulse Ox 09/30/21 11:26 37.2 C 83 18 112/92 97 09/30/21 07:51 37.2 C 80 21 99/58 L 97 09/30/21 07:33 83 09/30/21 02:57 36.6 C 74 20 100/61 96 all noted and reviewed including below
[2021-09-30] MEDS ORDERED: PROPOFOL IV EMULSION 10 MG/ML 20 ML VIAL IV ONE (13:09)
[2021-09-30] MEDS ORDERED: LIDOCAINE 2% 2 ML VIAL/AMP(20MG/ML) INFIL ONE (13:09)
[2021-09-30] MEDS ORDERED: GLUCAGON FOR INJ 1 MG VIAL ONE (13:09)
--- NOTE | 2021-09-30 13:15 | GI REPORT ---
Patient Name: Abhi Duarte Procedure Date: 09/30/2021 11:27 AM Date of : 1990 Admit Type: Inpatient Age: 30 Gender: Male Attending MD: Elena Garcia MD Procedure: Colonoscopy Providers: Elena Garcia MD Referring MD: Sriram Jackson Marten B. Duncan, DO Indications: Foreign body in the colon Medicines: Propofol per Anesthesia Complications: No immediate complications. Estimated Blood Loss: Estimated blood loss: none. Procedure: Pre-Anesthesia Assessment: - Prior to the procedure, a History and Physical was performed, and patient medications, allergies and sensitivities were reviewed. The patient's tolerance of previous anesthesia was reviewed. - The risks and benefits of the procedure and the sedation options and risks were discussed with the patient. All questions were answered and informed consent was obtained. - Patient identification and proposed procedure were verified prior to the procedure by the physician and the nurse. The procedure was verified in the procedure room. - Pre-procedure physical examination revealed no contraindications to sedation. After I obtained informed consent, the scope was passed under direct vision. Throughout the procedure, the patient's blood pressure, pulse, and oxygen saturations were monitored continuously. The Colonoscope was introduced through the anus and advanced to the terminal ileum. The colonoscopy was performed without difficulty. The patient tolerated the procedure well. The quality of the bowel preparation was fair. The terminal ileum, ileocecal valve, appendiceal orifice, and rectum were photographed. Findings: The perianal and digital rectal examinations were normal. The terminal ileum contained a single (solitary) six mm ulcer likely related to compression by the foreign bodies. No bleeding was present. To close the mucosal defect, two hemostatic clips were successfully placed (MR conditional). Three plastic sporks (foreign body) were found in the cecum with other end in the terminal ileum. Removal was accomplished with a rat-toothed forceps. A single area or mucosal disruption related to compression from the foreign bodies was found in the cecum and correlates with the contained perforation seen on imaging. To repair the defect, the tissue edges were approximated and one olza-sna-crczd clip (Padlock) was successfully placed (MR conditional). Closure of the defect was successful. The retroflexed view of the distal rectum and anal verge was normal and showed no anal or rectal abnormalities. Impression: - Foreign bodies in the cecum were successfully removed. The area that correlates with the contained perforation seen on imaging was closed using a Padlock clip. Recommendation: - [facility]. - Clear liquid diet for 2 days, then advance as tolerated to full liquid diet for one day then soft for 2 days. - Complete a 10 days course of ABx (Cipro + Flagyl). Elena Garcia MD 09/30/2021 1:14:30 PM This report has been signed electronically. Note Initiated On: 09/30/2021 11:27 AM Number of Addenda: 0 I attest to the content of the Intraoperative Record and orders documented therein, exceptions below {[id number]}
--- NOTE | 2021-09-30 13:28 | Anesthesiology Progress Note ---
Date of Service September 30, 2021 Anesthesia Post Procedure Vital Signs Vital Signs: Temp Pulse Pulse Resp BP Pulse Ox 09/30/21 13:24 78 18 125/95 100 09/30/21 13:09 99 H 16 113/70 98 09/30/21 11:26 37.2 C 83 18 112/92 97 09/30/21 07:51 37.2 C 80 21 99/58 L 97 09/30/21 07:33 83 09/30/21 02:57 36.6 C 74 20 100/61 96 09/29/21 23:06 36.9 C 74 18 99/62 L 96 09/29/21 22:19 76 09/29/21 16:06 37.8 C H 89 18 104/59 L 95 Pain Intensity Abdomen: Pain Intensity: 7 Transfer of Care Handoff Completed per policy Notes Mental Status: alert / awake / arousable and participated in evaluation Patient Amnestic to Procedure: Yes Nausea / Vomiting: adequately controlled Pain: adequately controlled Airway Patency, RR, SpO2: stable & adequate BP & HR: stable & adequate Hydration State: stable & adequate Anesthetic Complications: no major complications apparent and Pt Satisfied with anesthetic care
[2021-09-30] MEDS: diphenhydrAMINE Capsule 25 MG CAP PO SCH (20:01)
[2021-09-30] MEDS: MELATONIN 3 MG TAB PO PRN (21:59)
[2021-10-01] MEDS ORDERED: NITROGLYCERIN SL 0.4 MG/TAB TAB SL STA (05:36)
[2021-10-01] MEDS: D5NSS + 20MEQ KCL 20 MEQ/1,000 ML BAG IV SCH ×2 (05:47→18:06)
[2021-10-01] MEDS: PIPERACILLIN/TAZOBACTAM 3.375 GM in DEXTROSE 5% 100 ML IV SCH ×3 (05:52→21:32)
[2021-10-01] MEDS: ARIPiprazole 10 MG TAB PO SCH ×2 (07:47→19:54)
[2021-10-01 08:08] LABS: Basophils # (auto) 0.01 K/uL (0-0.2); Basophils % (auto) 0.2 %; Eosinophils # (auto) 0.17 K/uL (0-0.5); Eosinophils % (auto) 3.7 %; Hematocrit (blood only) 34.1 % (42-52); Hemoglobin 11.7 g/dL (14.0-18.0); Lymphocytes # (auto) 1.06 K/uL (1.2-3.4); Lymphocytes % (auto) 23.3 %; Mean Corpuscular Hemoglobin 31.2 pg (25-34); Mean Corpuscular Hgb Conc 34.3 g/dL (32-36); Mean Corpuscular Volume 90.9 fL (80-100); Mean Platelet Volume 9.6 fL (7.4-10.4); Monocytes # (auto) 0.18 K/uL (0.11-0.59); Neutrophils # (auto) 3.13 K/uL (1.4-6.5); Neutrophils % (auto) 68.8 %; Platelet Count 188 K/uL (130-400); RDW Coefficient of Variation 12.9 % (11.5-14.5); RDW Standard Deviation 42.8 fL (36.4-46.3); Red Blood Count 3.75 M/uL (4.7-6.1); White Blood Count 4.55 K/uL (4.8-10.8)
[2021-10-01] MEDS: FAMOTIDINE 20 MG TAB PO SCH ×2 (09:05→19:54)
[2021-10-01 09:56] LABS: Anion Gap 5 (3-11); Blood Urea Nitrogen < 2 mg/dl (6-23); Carbon Dioxide 28 mmol/L (21-32); Chloride 107 mmol/L (98-107); Creatinine Clr Calc Pharmacy 209.9 ml/min; Est GFR (African American) > 150.0 ml/min; Est GFR (Non-African American) 138.8 ml/min; Glucose 81 mg/dl (70-99(Fasting)); Magnesium 1.8 mg/dl (1.7-2.4); Potassium 3.9 mmol/L (3.5-5.1); Sodium 140 mmol/L (136-145)
--- NOTE | 2021-10-01 10:08 | Electrocardiogram Report ---
Test Reason : Blood Pressure : / mmHG Vent. Rate : 076 BPM Atrial Rate : 076 BPM P-R Int : 080 ms QRS Dur : 128 ms QT Int : 402 ms P-R-T Axes : 000 057 090 degrees QTc Int : 452 ms Sinus rhythm Ynbkq-srmpywdvq-qjrmd Abnormal ECG When compared with ECG of 19-JUN-2021 08:20, No significant change Confirmed by Blayne Martin ([id number]) on 10/01/2021 10:08:12 AM Referred By: Ronald STARR Confirmed By:Blayne Martin
--- NOTE | 2021-10-01 10:13 | Gastroenterology Progress Note ---
Date of Service October 01, 2021 Assessment & Plan Admission and Anticipated Discharge Date Admission Date: September 28, 2021 Subjective Patient was seen and examined today, doing well, no abdominal pain, nausea or vomiting, no fever. Tolerated clear liquids and having normal BM. Recommend: Advance diet as tolerated. Recall GI if needed. Results & Data ([facility]) Vital Signs (Past 12 Hours) Vital Signs Temp Pulse Pulse Resp BP Pulse Ox 10/01/21 07:49 37 C 84 20 131/77 98 10/01/21 03:15 36.7 C 73 20 121/76 99 09/30/21 22:49 36.5 C 84 18 128/82 100 09/30/21 22:19 96 H
--- NOTE | 2021-10-01 12:16 | Hospitalist Progress Note ---
Date of Service October 01, 2021 Assessment & Plan (1) Foreign body ingestion: (2) Vapes nicotine containing substance: (3) Iyigr-Zczyjbkzp-Evuvz syndrome: (4) Borderline personality disorder: Plan: per previous MD's notes with addendum: This is a 30yo M from [facility] with PMH of HTN, history of WPW, mood disorder, history of partial gastrectomy who presents afteringestion of foreign bodies. Foreign body ingestion with Contained Perforation Patient admits to swallowing multiple FBs on August 29 including flex pens, a toothbrush and 2 sporks- has passed or vomited all of these except for [address] A/P with tubular, partially coiled radiopaque FB within the cecum and ascending colon with no evidence for bowel obstruction or perforation. 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 Episode of left-sided chest pain this morning, EKG unrevealing, troponins x2 - Patient reports that he exercises daily correctional facility, no chest pain noted during exertion Mood disorder Mood appears stable, denies suicidal ideation Continue Abilify patient already seeing Psychiatrist at correctional facility-states mood has been improving since 2 weeks ago, No urge to ingest foreign bodies anymore Insomnia Benadryl HS DVT Ppx: teds Code status: FULL PCP: [facility] Dispo: Return to [facility] when medically stable Admission and Anticipated Discharge Date Admission Date: September 28, 2021 Subjective Follow-up for foreign body ingestion, etc. Resting in bed, comfortable, not in distress In good spirits States he feels much better today Abdominal pain has resolved Tolerating clear liquid diet well No nausea vomiting, Had episode of left-sided chest pain 5 to 10 minutes duration, sharp, no other associated symptoms EKG no signs of ischemia, troponins negative Chest pain resolved No other symptoms Review of Systems Review of Systems: all noted and negative except for above Physical Exam Physical Exam: General- oriented x 3, not in distress, speaks in sentences with no effort or accessory muscle use Eyes- anicteric Neck- no JVD Lungs- clear breath sounds, no crackles or wheezing bilaterally Heart- normal rate, regular rhythm; no murmurs Abdomen- normal bowel sounds, nondistended, soft, no tenderness noted Extremities- no pretibial edema, no calf tenderness Neuro- alert, oriented x 3; no gross focal neurologic deficits Skin- warm & dry Results & Data Results & Data ([facility]) Vital Signs (Past 12 Hours) Vital Signs Temp Pulse Pulse Resp BP Pulse Ox 10/01/21 11:31 36.5 C 66 21 127/81 100 10/01/21 07:49 37 C 84 20 131/77 98 10/01/21 07:20 71 10/01/21 03:15 36.7 C 73 20 121/76 99 all noted and reviewed including below
[2021-10-01] MEDS: diphenhydrAMINE Capsule 25 MG CAP PO SCH (19:56)
[2021-10-01] MEDS: ACETAMINOPHEN 325 MG TAB PO PRN (21:32)
[2021-10-01] MEDS: MELATONIN 3 MG TAB PO PRN (22:40)
[2021-10-02] MEDS: D5NSS + 20MEQ KCL 20 MEQ/1,000 ML BAG IV SCH ×2 (05:08→18:07)
[2021-10-02] MEDS: PIPERACILLIN/TAZOBACTAM 3.375 GM in DEXTROSE 5% 100 ML IV SCH ×3 (06:00→22:35)
[2021-10-02 07:02] LABS: Anion Gap 6 (3-11); BUN Creatinine Ratio 3.2 (10-20); Blood Urea Nitrogen 2 mg/dl (6-23); Calcium 9.6 mg/dl (8.5-10.1); Carbon Dioxide 28 mmol/L (21-32); Chloride 106 mmol/L (98-107); Creatinine Clr Calc Pharmacy 189.9 ml/min; Est GFR (African American) > 150.0 ml/min; Est GFR (Non-African American) 133.2 ml/min; Glucose 104 mg/dl (70-99(Fasting)); Magnesium 1.8 mg/dl (1.7-2.4); Potassium 4.1 mmol/L (3.5-5.1); Sodium 140 mmol/L (136-145)
[2021-10-02] MEDS: FAMOTIDINE 20 MG TAB PO SCH ×2 (07:59→20:48)
[2021-10-02] MEDS: ARIPiprazole 10 MG TAB PO SCH ×2 (07:59→20:48)
--- NOTE | 2021-10-02 17:27 | XRay Report ---
XR KUB/Abdomen 1 view CLINICAL HISTORY: Vomiting. Evaluate for obstruction.. COMPARISON STUDY: 09/28/2021 TECHNIQUE: Single view of the abdomen. FINDINGS: The bowel gas pattern is within normal limits without evidence for dilatation or obstruction. Air-sabine led loops of both large and small bowel are present without disproportionate dilatation. There is a n ew radiopaque foreign body present within the region of the cecum having the configuration of a star. There is no evidence for organomegaly or gross intra-abdominal mass. No abnormal calcifications are seen along the course of the urinary tracts bilaterally. No acute osseous pathology. IMPRESSION: 1.No acute intra-abdominal abnormality. No bowel loop dilatation or obstruction. Radiopaque foreign b kayy within the cecum. ACT 112: Negative or not required by law. Electronically signed by: Osmar Patiño M.D. 10/02/2021 5:26 PM
--- NOTE | 2021-10-02 17:47 | Hospitalist Progress Note ---
Date of Service October 02, 2021 Assessment & Plan (1) Foreign body ingestion: (2) Vapes nicotine containing substance: (3) Mcnvd-Exzcmvgxk-Eiueb syndrome: (4) Borderline personality disorder: Plan: per previous MD's notes with addendum: This is a 30yo M from [facility] with PMH of HTN, history of WPW, mood disorder, history of partial gastrectomy who presents afteringestion of foreign bodies. Foreign body ingestion with Contained Perforation Patient admits to swallowing multiple FBs on August 29 including flex pens, a toothbrush and 2 sporks- has passed or vomited all of these except for [address] A/P with tubular, partially coiled radiopaque FB within the cecum and ascending colon with no evidence for bowel obstruction or perforation. 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 Episode of left-sided chest pain this morning, EKG unrevealing, troponins x2 - Patient reports that he exercises daily correctional facility, no chest pain noted during exertion Patient had 4-minute episode of SVT today, in the setting of emesis We will consult cardiology service Mood disorder Mood appears stable, denies suicidal ideation Continue Abilify patient already seeing Psychiatrist at correctional facility-states mood has been improving since 2 weeks ago, No urge to ingest foreign bodies anymore Insomnia Benadryl HS DVT Ppx: teds Code status: FULL PCP: [facility] Dispo: Return to [facility] when medically stable Admission and Anticipated Discharge Date Admission Date: September 28, 2021 Subjective ff up for foreign body ingestion, etc seen resting in bed, comfortable earlier today patient was noted to have 4-minute episode of SVT via quality assurance monitor body, patient was having an episode of emesis at that time Denied shortness of breath, dizziness, chest pain No abdominal pain, tolerating diet well otherwise No other symptoms Review of Systems Review of Systems: all noted and negative except for above Physical Exam Physical Exam: General- oriented x 3, not in distress, speaks in sentences with no effort or accessory muscle use Eyes- anicteric Neck- no JVD Lungs- clear breath sounds bilaterally, no rales/wheezes Heart- normal rate, regular rhythm; no murmurs Abdomen- normal bowel sounds, nondistended, soft, no tenderness Extremities- no pretibial edema, no calf tenderness Neuro- alert, oriented x 3; no gross focal neurologic deficits Skin- warm & dry Results & Data Results & Data ([facility]) Vital Signs (Past 12 Hours) Vital Signs Temp Pulse Pulse Resp BP Pulse Ox 10/02/21 16:31 36.9 C 88 18 117/74 97 10/02/21 14:15 93 H 10/02/21 13:27 36.6 C 111 H 20 142/92 H 100 10/02/21 11:43 36.9 C 88 19 111/65 98 10/02/21 08:25 71 10/02/21 07:25 36.6 C 71 21 127/79 98 all noted and reviewed including below
--- NOTE | 2021-10-02 17:48 | Cardiology Consultation ---
Date of Consultation October 02, 2021 Assessment & Plan (1) Foreign body ingestion: (2) Apbzb-Uxliawavh-Xhpkt syndrome: If the patient requires procedures to be completed then I believe he may proceed with an acceptable low risk of cardiovascular event. I do not believe any additional testing is necessary at this time. His EKG does show a short MS interval classic delta wave consistent with Mewcw-Rnrxhuwbs-Fjmgk. If he does go into an SVT you do not want to use AV jessy blocking agents as this could accelerate the arrhythmia. History of Present Illness Attending Physician: Sriram Simms MD History of Present Illness This is a 30-year-old incarcerated male patient with a bipolar disorder who has a pica for foreign objects. He swallowed multiple foreign objects and has been admitted for further care. 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 According to the patient he underwent an ablation in [facility] when he was 18. He has not really had any problems following that ablation. Occasionally he will have fast heart rates which last a few seconds. He knows to cough or bear down and that will usually bring his tachycardia as well. After his hospital admission he went into the bathroom to throw up and at that time he had a high heart rate and we were asked to see him. No other complaints. On the telemetry he has been in a sinus rhythm with appropriate heart rates. 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 Surgical History History of cardiac radiofrequency ablation (RFA) 2009 History of partial gastrectomy Family History Other Diabetes Heart disease Stroke Social History Smoking Status: Current every day smoker Tobacco Type: E-cigarettes / Vaping Hx Alcohol Use: No Hx Substance Use: No Preferred Language: Uzbek Communication Ability: Effective Shipping And Receiving Associate Required: No Beliefs That Will Affect Care: None Current Living Situation: Other Current Living Situation Comment: [facility] Feels Safe at Home: Yes Safety Concerns: Feels Safe At This Time Assistive Devices: None Review of Systems Review of Systems: Review of Systems: See HPI for pertinent positives. All other 10 point review of systems are negative. Physical Exam Physical Exam: General: no acute distress and stated age Head: normocephalic, no masses, lesions, tenderness or abnormalities Eyes: conjunctiva are pink and non-injected, sclera clear Neck: supple, no adenopathy, no bruits, normal jugular venous pulse, no hepatojugular reflux Chest: normal shape and normal respiratory effort Lungs: clear to auscultation and percussion Cardiac Exam: - regular rate & rhythm, no murmurs gallops or rubs - normal S1, normal S2 Pulses: 2(+) throughout Abdomen: abdomen soft, non-tender, no abnormal masses and no hepatosplenomegaly Musculoskeletal: no gait disturbance, no joint inflammation, no deforming arthritis Extremities: no edema and no cyanosis Neuro: grossly normal exam Results & Data ([facility]) Vital Signs (Past 12 Hours) Vital Signs Temp Pulse Pulse Resp BP Pulse Ox 10/02/21 16:31 36.9 C 88 18 117/74 97 10/02/21 14:15 93 H 10/02/21 13:27 36.6 C 111 H 20 142/92 H 100 10/02/21 11:43 36.9 C 88 19 111/65 98 10/02/21 08:25 71 10/02/21 07:25 36.6 C 71 21 127/79 98 Laboratory Results Laboratory Results - last 24 hr 10/02/21 06:24 Sodium 140 Potassium 4.1 Chloride 106 Carbon Dioxide 28 Anion Gap 6 BUN 2 L Creatinine 0.63 Est Cr Clr Drug Dosing 189.9 Est GFR ( Amer) > 150.0 Est GFR (Non-Af Amer) 133.2 BUN/Creatinine Ratio 3.2 L Glucose 104 H Calcium 9.6 Magnesium 1.8 Medications Administered Current Inpatient Medications Acetaminophen (Acetaminophen 325 Mg Tab) 650 mg PO Q4H PRN PRN Reason: Pain or Fever Stop: 10/27/21 17:42 Last Admin: 10/01/21 21:32 Dose: 650 mg Documented by: Aripiprazole (Aripiprazole 10 Mg Tab) 10 mg PO BID [facility] Stop: 10/27/21 20:59 Last Admin: 10/02/21 07:59 Dose: 10 mg Documented by: Diphenhydramine HCl (Diphenhydramine Capsule 25 Mg Cap) 50 mg PO HS [facility] Stop: 10/27/21 20:59 Last Admin: 10/01/21 19:56 Dose: 50 mg Documented by: Famotidine (Famotidine 20 Mg Tab) 20 mg PO BID [facility] Stop: 10/31/21 08:59 Last Admin: 10/02/21 07:59 Dose: 20 mg Documented by: Promethazine HCl 12.5 mg/ (Sodium Chloride) 50.5 mls @ 202 mls/hr IV Q6H PRN PRN Reason: Nausea And Vomiting Stop: 10/27/21 20:28 Potassium Chloride/Dextrose/Sod Cl (D5nss + 20meq Kcl) 20 meq in 1,000 mls @ 75 mls/hr IV .[id number] [facility]; Protocol Stop: 10/28/21 14:44 Last Admin: 10/02/21 05:08 Dose: 75 mls/hr Documented by: Piperacillin Sod/Tazobactam (Sod 3.375 gm/ Dextrose) 115 mls @ 28.75 mls/hr IV Q8H [facility]; Protocol Stop: 10/09/21 13:59 Last Admin: 10/02/21 15:25 Dose: 28.8 mls/hr Documented by: Ketorolac Tromethamine (Ketorolac Tromethamine 15 Mg/Ml Vial) 15 mg IV Q6H PRN PRN Reason: Pain Stop: 10/04/21 11:32 Last Admin: 09/30/21 19:55 Dose: 15 mg Documented by: Melatonin (Melatonin 3 Mg Tab) 3 mg PO HS PRN PRN Reason: Sleep Stop: 10/28/21 18:15 Last Admin: 10/01/21 22:40 Dose: 3 mg Documented by: Miscellaneous Information (Piperacill/Tazobac Consult Active) 1 ea N/A UD PRN PRN Reason: Consult Stop: 10/29/21 08:27 Ondansetron HCl (Ondansetron Inj 2 Mg/Ml 2 Ml Vial) 4 mg IV Q6H PRN PRN Reason: Nausea Stop: 10/27/21 17:42 Last Admin: 10/02/21 15:51 Dose: 4 mg Documented by:
[2021-10-02] MEDS: diphenhydrAMINE Capsule 25 MG CAP PO SCH (20:49)
[2021-10-03] MEDS: PIPERACILLIN/TAZOBACTAM 3.375 GM in DEXTROSE 5% 100 ML IV SCH ×2 (06:14→14:16)
[2021-10-03] MEDS: D5NSS + 20MEQ KCL 20 MEQ/1,000 ML BAG IV SCH (07:24)
[2021-10-03] MEDS: FAMOTIDINE 20 MG TAB PO SCH (08:10)
[2021-10-03] MEDS: ARIPiprazole 10 MG TAB PO SCH (08:10)
[2021-10-03 10:06] LABS: BUN Creatinine Ratio 4.3 (10-20); Calcium 9.6 mg/dl (8.5-10.1); Creatinine Clr Calc Pharmacy 170.9 ml/min; Est GFR (African American) 147.8 ml/min; Est GFR (Non-African American) 127.5 ml/min; Magnesium 1.8 mg/dl (1.7-2.4); Potassium 4.1 mmol/L (3.5-5.1)
[2021-10-03] MEDS: ACETAMINOPHEN 325 MG TAB PO PRN (12:34)
--- NOTE | 2021-10-03 13:22 | Hospitalist Progress Note ---
Date of Service October 03, 2021 Assessment & Plan (1) Foreign body ingestion: (2) Vapes nicotine containing substance: (3) Wrmrf-Klznrpswu-Lhsqn syndrome: (4) Borderline personality disorder: Plan: per previous MD's notes with addendum: This is a 30yo M from [facility] with PMH of HTN, history of WPW, mood disorder, history of partial gastrectomy who presents afteringestion of foreign bodies. Foreign body ingestion with Contained Perforation Patient admits to swallowing multiple FBs on August 29 including flex pens, a toothbrush and 2 sporks- has passed or vomited all of these except for [address] A/P with tubular, partially coiled radiopaque FB within the cecum and ascending colon with no evidence for bowel obstruction or perforation. Otherwise, no acute intra-abdominal or pelvic abnormality 09/30/2021 Status post colonoscopy with retrieval of 3 Sporks Impression: - Foreign bodies in the cecum were successfully removed. The area that correlates with the contained perforation seen on imaging was closed using a Padlock clip. Recommendation: - Return patient to [facility] for ongoing care. - Clear liquid diet for 2 days, then advance as tolerated to full liquid diet for one day then soft for 2 days. - Complete a 10 days course of ABx (Cipro + Flagyl). 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, no chest pain noted during exertion Patient had 4-minute episode of SVT 10/02/2021, in the setting of emesis Non Emergency Services Ambulance Driver consulted-no further cardiac testing, no cardiac medication recommended Mood disorder Mood appears stable, denies suicidal ideation Continue Abilify patient already seeing Psychiatrist at correctional facility-states mood has been improving since 2 weeks ago, No urge to ingest foreign bodies anymore Insomnia Benadryl HS DVT Ppx: teds Code status: FULL PCP: [facility] Dispo: Return to [facility] when medically stable Admission and Anticipated Discharge Date Admission Date: September 28, 2021 Subjective Follow-up for foreign body ingestion, etc. No recurrence of SVT Patient seen sitting up in bed, comfortable States he feels fine overall No abdominal pain, nausea vomiting or fevers or chills No shortness of breath, chest pain, palpitations Denies other symptoms Review of Systems Review of Systems: all noted and negative except for above Physical Exam Physical Exam: General- oriented x 3, not in distress, speaks in sentences with no effort or accessory muscle use Eyes- anicteric Neck- no JVD Lungs- clear BS bilaterally No wheezing or crackles Heart- normal rate, regular rhythm; no murmurs Abdomen- normal bowel sounds, nondistended, soft, no tenderness Extremities- no pretibial edema, no calf tenderness Neuro- alert, oriented x 3; no gross focal neurologic deficits Skin- warm & dry Results & Data Results & Data ([facility]) Vital Signs (Past 12 Hours) Vital Signs Temp Pulse Pulse Resp BP Pulse Ox 10/03/21 13:05 37.4 C 87 18 123/85 93 10/03/21 09:12 75 10/03/21 06:35 36.5 C 77 18 109/73 97 10/03/21 03:30 36.6 C 78 16 122/72 98 all noted and reviewed including below
--- NOTE | 2021-10-03 16:44 | Discharge Summary ---
Date of Service October 03, 2021 Admission HPI Per Admitting Provider This is a 30yo M from [facility] with PMH of HTN, history of WPW, mood disorder, history of partial gastrectomy who presents afteringestion of foreign body. Patient admits to swallowing multiple foreign bodies on August 29 including flex pens, a toothbrush and 2 sporks. Was seen in ED and then discharged back to [facility]. Has passed or vomited all of these except for 1 spork. Is endorsing RLQ pain x 3 days that he describes as a 7/10 constant ache which is exacerbated with movement. Denies persistent N/V. No bowel movement in 3 days. No blood from rectum. Tolerating regular diet. CT abd/pelvis with tubular, partially coiled radiopaque foreign body within the cecum and ascending colon with no evidence for bowel obstruction or perforation. Otherwise, no acute intra-abdominal or pelvic abnormality. States he swallows foreign bodies for the high he feels with self harm. Denies any SI. Admission Exam (Per Admitting) Constitutional General Appearance:WD/WN, vitals as above, NAD, sitting up in bed, pleasant, conversing easily Head: normocephalic, atraumatic Eyes:normal inspection, PERRL, conjunctivae normal, anicteric sclerae ENT: external ear and nose normal, oropharynx normal Neck: normal visual inspection, trachea midline, no thyromegaly Respiratory:normal respiratory effort, lungs clear to auscultation, no wheeze, rales, rhonchi. No accessory muscle use Cardiovascular: regular rate, rhythm, no murmur, normal peripheral pulses, no BLE edema. Vessels: no JVD Chest: normal inspection of chest Abdomen/GI: normal bowel sounds, soft, + RLQ TTP, no hepatosplenomegaly Extremities/Musculoskeletal: no cyanosis or clubbing, extremities motor strength 5/5 Neurologic: PERRL, EOMI, accommodation nl, no face palsy, no dysarthria, CN's II-XI intact bilaterally and moves all extremities Psychiatric:A+Ox3, euthymic affect Skin: no rashes, normal color, warm/dry Discharge Data Consultations 09/27/21 14:05 ED Decision to Admit Stat 09/27/21 17:43 Consult Gastroenterology Routine 09/27/21 20:15 Consult General Surgery Stat 09/28/21 14:30 Burn CD for patient Routine 10/02/21 14:26 Consult Cardiology Routine Procedures Performed Operation Date: 09/28/21 16:30 <No data on this case meets the specified criteria> Operation Date: 09/30/21 17:40 Actual Procedures p Colonoscopy Foreign Body Removal - Elena Garcia MD Findings: The perianal and digital rectal examinations were normal. The terminal ileum contained a single (solitary) six mm ulcer likely related to compression by the foreign bodies. No bleeding was present. To close the mucosal defect, two hemostatic clips were successfully placed (MR conditional). Three plastic sporks (foreign body) were found in the cecum with other end in the terminal ileum. Removal was accomplished with a rat-toothed forceps. A single area or mucosal disruption related to compression from the foreign bodies was found in the cecum and correlates with the contained perforation seen on imaging. To repair the defect, the tissue edges were approximated and one lkmm-raw-mnjcj clip (Padlock) was successfully placed (MR conditional). Closure of the defect was successful. The retroflexed view of the distal rectum and anal verge was normal and showed no anal or rectal abnormalities. Impression: - Foreign bodies in the cecum were successfully removed. The area that correlates with the contained perforation seen on imaging was closed using a Padlock clip. Recommendation: - Return patient to [facility] for ongoing care. - Clear liquid diet for 2 days, then advance as tolerated to full liquid diet for one day then soft for 2 days. - Complete a 10 days course of ABx (Cipro + Flagyl). CT abd pelvis IV con only CLINICAL HISTORY: RLQ abd pain, ingested FB COMPARISON STUDY: 06/03/2021 CT DOSE: 378.95 mGy.cm TECHNIQUE: Standard CT of the Abdomen and Pelvis was performed with IV contrast. A dose lowering technique was utilized adhering to the principles of ALARA. Contrast Volume: Optiray 320, 95 ml. The patient did not receive oral contrast. FINDINGS: Lung base: The lung bases are clear. Abdominal cavity: There is no evidence for abdominal mass, adenopathy or ascites. Liver: There is homogeneous attenuation of the liver parenchyma. There is no evidence for enhancing mass lesion. Spleen: There is homogeneous attenuation of the splenic parenchyma. There is no enhancing mass lesion. Pancreas: There is homogeneous attenuation of the pancreatic parenchyma. There is no evidence for mass lesion or peripancreatic fluid collection. Gall Bladder: The gallbladder is well distended with no evidence for intraluminal calculi, wall thickening or pericholecystic edema. Adrenal glands: The adrenal glands are normal in size and attenuation. There is no evidence for enhancing mass lesion. Kidneys: There is homogeneous attenuation of the renal parenchyma bilaterally. There is no evidence for renal calculus or hydronephrosis. There is no evidence for enhancing mass. 2 sharply defined right renal cysts are present. Bowel: Postsurgical changes are present within the stomach. There is a tubular, coiled radiopaque foreign body present within the cecum and ascending colon. There is no associated obstruction. The bowel loops are otherwise normally placed within the abdomen and pelvis without evidence for dilatation or obstruction. There is no evidence for mass lesion. There are no inflammatory changes present. There is no evidence for free air. The appendix is not visualized. Bladder: The bladder is distended with no evidence for focal mass, calculus or diverticulum. : There is no evidence for pelvic mass or adenopathy. There is no evidence for pelvic ascites. Vasculature: There is no evidence for aneurysmal dilatation of the abdominal aorta. Osseous structures: There is no acute osseous pathology. IMPRESSION: 1. Tubular, partially coiled radiopaque foreign body within the cecum and ascending colon with no evidence for bowel obstruction or perforation. 2. Otherwise, no acute intra-abdominal or pelvic abnormality. ACT 112: Negative or not required by law. Electronically signed by: Osmar Patiño M.D. 09/27/2021 12:55 PM ADDENDUM On further review, the tip of the foreign body presses against the cecum with tenting. Fluid surrounds the foreign body at this site as seen on images 200 to 256 of 481. This fluid has a different attenuation than the fluid and stool within the cecum. The findings are highly suspicious for local walled off perforation with only fluid present. There is no air seen within this. There is again no free air present. The emergency Department was called with results of this study. Electronically signed by: Osmar Patiño M.D. 09/27/2021 4:19 PM ADDENDUM END Hospital Course (1) Foreign body ingestion: (2) Vapes nicotine containing substance: (3) Iwcfs-Zppncuudb-Kzfbk syndrome: (4) Borderline personality disorder: per previous MD's notes with addendum: This is a 30yo M from [facility] with PMH of HTN, history of WPW, mood disorder, history of partial gastrectomy who presents afteringestion of foreign bodies. Foreign body ingestion with Contained Perforation Patient admits to swallowing multiple FBs on August 29 including flex pens, a toothbrush and 2 sporks- has passed or vomited all of these except for [address] A/P with tubular, partially coiled radiopaque FB within the cecum and ascending colon with no evidence for bowel obstruction or perforation. Otherwise, no acute intra-abdominal or pelvic abnormality 09/30/2021 Status post colonoscopy with retrieval of 3 Sporks Findings: The perianal and digital rectal examinations were normal. The terminal ileum contained a single (solitary) six mm ulcer likely related to compression by the foreign bodies. No bleeding was present. To close the mucosal defect, two hemostatic clips were successfully placed (MR conditional). Three plastic sporks (foreign body) were found in the cecum with other end in the terminal ileum. Removal was accomplished with a rat-toothed forceps. A single area or mucosal disruption related to compression from the foreign bodies was found in the cecum and correlates with the contained perforation seen on imaging. To repair the defect, the tissue edges were approximated and one iqco-ack-mkzuh clip (Padlock) was successfully placed (MR conditional). Closure of the defect was successful. The retroflexed view of the distal rectum and anal verge was normal and showed no anal or rectal abnormalities. Impression: - Foreign bodies in the cecum were successfully removed. The area that correlates with the contained perforation seen on imaging was closed using a Padlock clip. Recommendation: - Return patient to [facility] for ongoing care. - Clear liquid diet for 2 days, then advance as tolerated to full liquid diet for one day then soft for 2 days. - Complete a 10 days course of ABx (Cipro + Flagyl). 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 Had 1 episode of left-sided chest pain while admitted, EKG unrevealing, troponins x2 - Patient reports that he exercises daily correctional facility, no chest pain noted during exertion Patient had 4-minute episode of SVT 10/02/2021, in the setting of emesis Blast Furnace Keeper Helper consulted-no further cardiac testing, no cardiac medication recommended Mood disorder Mood appears stable, denies suicidal ideation Continue Abilify patient already seeing Psychiatrist at correctional facility-states mood has been improving since 2 weeks ago, No urge to ingest foreign bodies anymore Insomnia Benadryl HS DVT Ppx: teds Code status: FULL PCP: [facility] Dispo: Return to [facility] when medically stable
--- NOTE | 2021-10-10 22:11 | Electrocardiogram Report ---
Test Reason : Blood Pressure : / mmHG Vent. Rate : 079 BPM Atrial Rate : 079 BPM P-R Int : 084 ms QRS Dur : 164 ms QT Int : 414 ms P-R-T Axes : 000 070 161 degrees QTc Int : 474 ms Sinus rhythm with short MN Qpyrc-ycjksjgmi-yfprj Abnormal ECG When compared with ECG of 01-OCT-2021 05:22, No significant change Confirmed by Mansoor Queen ([id number]) on 10/10/2021 10:11:09 PM Referred By: [facility] STARR Confirmed By:Mansoor Queen
== END 2021-10-03 18:47 | DRG 330 ==
LOC: ED 09:59 → EDINP 09:59 → SUATTDRO 14:19 → 2N 18:15